=== PATIENT | female | born 1995 | race Caucasian/White ===

== ENCOUNTER 2016-08-26 11:40 | Emergency (ER) | payer SELFPAY ==
[~2016-08-26] VITALS: Ht 160 cm; Wt 98.8 kg
[~2016-08-26 11:40] MED LIST: AMOX-351 PO; IBUP-1547 PO; NO DAILY MEDICATIONS
[2016-08-26 11:43] VITALS: Ht 160 cm; Wt 98.8 kg
--- OUTSIDE RECORDS SUMMARY | 2016-08-26 11:47 | XMS REPORT | Continuity of Care Document ---
Author Author [facility] Organization [facility] Address Unknown Phone Unavailable Support Name Relationship Address Phone LEVONREN ABBY Sofia TOOL GRINDER Caregiver [address] [place] [address] Unavailable DOT RAI Next Of Kin [address] [place], [place] [id number] Insurance Providers Guarantor Taylor Irvin Address [address] [place] [address] [address] [place] [address] Email DENIED/NO TO PT PORTAL Payer [facility] [employer] Policy Number [id number] Subscriber's Name Taylor Irvin Relationship 18 Self Group Number [id number] Effective Date 16 Expiration Date 16 Chief Complaint and Reason for Visit Chief Complaint Ear Pain/Injury Reason for Visit [id number] Problems Active Problems Medical Problem Onset Date Status Allergic reaction caused by a drug Unknown Acute Peritonsillar cellulitis Unknown Acute Sensation of foreign body Unknown Acute Past Problems Medical Problem Onset Date Acute maxillary sinusitis Unknown Allergic rhinitis Unknown Otitis media, left Unknown Medications Current Home Medications Medication Dose Units Route Directions Days Qty Instructions Start Date Amoxicillin/Potassium Clav (Augmentin 875-125 Tablet) 1 Each Tablet 1 Tab Oral Twice A Day 10 Days 20 Tablet TAKE WITH MEALS Supervising physician Dr. Rc Robledo [employer] [facility] [phone] [phone] 06/16/16 Ibuprofen 800 Mg Tablet 800 Mg Oral Every 8 Hours Prn for Pain 7 Days [address] Rc Robledo [facility] [address] [phone] 06/16/16 No Daily Medications 06/16/16 Past Home Medications Medication Directions Ordered Status Fluticasone Propionate (Flovent Hfa) 12 Gm Aer.w.adap, 12 Gm Inhalation As Needed 09/12/12 Discontinued Folic Acid 0.4 Mg Tablet, 0.4 Mg Oral 09/12/12 Discontinued Montelukast Sodium (Singulair) 10 Mg Tablet, 10 Mg Oral Daily 09/12/12 Discontinued None , 01/30/10 Discontinued Vits W-Ca,Fe,Fa(<1MG) ( Vitamins) 1 Tab Tablet, 1 Tab Oral Daily 09/12/12 Discontinued Social History Social History Problem Response Recorded Date/Time Onset Date Status Hx Substance Use No 03/29/2016 12:37pm Not Applicable Not Applicable Hx Alcohol Use Y RARELY 01/02/2015 1:50pm Not Applicable Not Applicable Tobacco Usage none 11/30/2014 11:32pm Not Applicable Not Applicable Hospital Discharge Instructions No hospital discharge instructions. Plan of Care Discharge Date 06/16/16 7:17pm Disposition 01 DISCHARGED HOME, SELF-CARE Condition at Discharge Stable Instructions/Education Provided Earache (ED) Serous Otitis Media (ED) Prescriptions See Medication Section Additional Instructions/Education Take augmentin as directed. Use Ibuprofen 800 mg every 8 hours as needed for pain. Dilute salt water gargles as needed ( 1/4 tsp of salt in 1 c. water) Follow with PCP in next 2 weeks. Functional Status No functional status results. Allergies, Adverse Reactions, Alerts Allergen Type Severity Reaction Status Last Updated Dexamethasone Allergy Intermediate Active 06/16/16 Cefuroxime Adverse Reaction Unknown Active 06/16/16 Immunizations Query Response on File Recorded Date/Time Hx Influenza Vaccination Y fall 201101/02/15 1:50pm Hx Tetanus, Diptheria, Pertussis Yes 01/02/15 1:50pm Hx Influenza Vaccination Y fall 201101/02/15 1:50pm Hx Tetanus, Diptheria, Pertussis Yes 01/02/15 1:50pm DTaP Vaccine History UNSURE 06/16/16 6:26pm Influenza Vaccine Hx 01/21/2016 06/16/16 6:26pm Tetanus Diptheria Vaccine History UNSURE 06/16/16 6:26pm Tdap Vaccine Hx 02/24/2016 03/29/16 12:37pm Vital Signs Acute Vital Signs Vital Response Date/Time Temperature (Fahrenheit) 98.2 deg F (96.8 - 99.1) 06/16/2016 6:35pm Temperature (Calculated Celsius) 36.81242 degrees C (36.0 - 37.3) 06/16/2016 6:35pm Pulse Rate (adult) 79 bpm (60 - 100) 06/16/2016 6:35pm Respiratory Rate 16 breaths/min (10 - 20) 06/16/2016 6:35pm O2 Sat by Pulse Oximetry 100 % (90 - 100) 06/16/2016 6:35pm Oxygen Delivery Method Room Air 03/31/2016 2:17pm Blood Pressure 115/77 mm Hg 06/16/2016 6:35pm Blood Pressure Source Automatic Cuff 03/31/2016 2:17pm Height (Feet) 5 feet 05/23/2016 11:45am Height (Inches) 64.00 inches 06/16/2016 6:35pm Weight (Kilograms) 97.000 kg 06/16/2016 6:35pm Body Mass Index (BMI) 36.0 06/16/2016 6:35pm Results Laboratory Results Test Name Result Units Flags Reference Collection Date/Time Result Date/ Time Comments White Blood Count 18.2 T/MM3 D H 4.5-11.0 03/30/2016 3:57am 03/30/2016 5: 45am Red Blood Count 5.01 M/MM3 4.00-5.20 03/30/2016 3:57am 03/30/2016 5: 45am Hemoglobin 15.0 GM/DL 12-16 03/30/2016 3:57am 03/30/2016 5:45am Hematocrit 43.9 % 36-46 03/30/2016 3:57am 03/30/2016 5:45am Mean Corpuscular Volume 87.6 UM3 80-100 03/30/2016 3:57am 03/30/2016 5: 45am Mean Corpuscular Hemoglobin 29.9 UUG 26-34 03/30/2016 3:57am 2015 5:45am Mean Corpuscular Hemoglobin Concent 34.2 GM/DL 31-37 03/30/2016 3:57am 03/30/2016 5:45am RDW Standard Deviation 40.8 FL 36.9-50.2 03/30/2016 3:57am 03/30/2016 5 :45am Platelet Count 244 T/MM3 130-400 03/30/2016 3:57am 03/30/2016 5:45am Mean Platelet Volume 12.1 UM3 9.4-12.4 03/30/2016 3:57am 03/30/2016 5: 45am Icterus Index < 2 0-7 03/29/2016 12:10pm 03/29/2016 12:25pm Chemistry Specimen Hemolysis < 15 0-25 03/29/2016 12:10pm 03/29/2016 12:25pm 0-25: Specimen Exhibited No Hemolysis. Turbidity < 20 0-20 03/29/2016 12:10pm 03/29/2016 12:25pm Total Bilirubin 0.30 MG/DL 0.20-1.30 03/29/2016 12:10pm 03/29/2016 12: 25pm Unconjugated Bilirubin 0.10 MG/DL 0.00-1.10 03/29/2016 12:10pm 2015 12:25pm Conjugated Bilirubin 0.00 MG/DL 0.00-0.30 03/29/2016 12:10pm 2015 12:25pm Alkaline Phosphatase 138 U/L H 38-126 03/29/2016 12:10pm 03/29/2016 12: 25pm Total Protein 7.2 G/DL 6.3-8.2 03/29/2016 12:10pm 03/29/2016 12:25pm Albumin 3.6 G/DL 3.5-5.0 03/29/2016 12:10pm 03/29/2016 12:25pm Globulin 3.6 G/DL 2.4-3.6 03/29/2016 12:10pm 03/29/2016 12:25pm Albumin/Globulin Ratio 1.0 RATIO L 1.1-2.2 03/29/2016 12:10pm 2015 12:25pm Aspartate Amino Transf (AST/SGOT) 19 U/L 14-36 03/29/2016 12:10pm 03/29 12:25pm Alanine Aminotransferase (ALT/SGPT) 31 U/L 9-52 03/29/2016 12:10pm 12:25pm Urine Color YELLOW YELLOW 03/31/2016 6:29am 03/31/2016 6:44am Urine Turbidity SL CLOUDY CLEAR 03/31/2016 6:29am 03/31/2016 6:44am Urine Specific [place] 1.020 1.015-1.025 03/31/2016 6:29am 2015 6:44am Urine pH 6.0 5.0-8.0 03/31/2016 6:29am 03/31/2016 6:44am Urine Leukocyte Esterase NEGATIVE NEGATIVE 03/31/2016 6:29am 2015 6:44am Urine Nitrite NEGATIVE NEGATIVE 03/31/2016 6:29am 03/31/2016 6:44am Urine Protein NEGATIVE NEGATIVE 03/31/2016 6:29am 03/31/2016 6:44am Urine Glucose (UA) NEGATIVE NEGATIVE 03/31/2016 6:29am 03/31/2016 6: 44am Urine Ketones NEGATIVE NEGATIVE 03/31/2016 6:29am 03/31/2016 6:44am Urine Urobilinogen 0.2 EU/DL NORMAL 03/31/2016 6:29am 03/31/2016 6: 44am Urine Bilirubin NEGATIVE NEGATIVE 03/31/2016 6:29am 03/31/2016 6: 44am Urine Blood 3+ A NEGATIVE 03/31/2016 6:29am 03/31/2016 6:44am Urine WBC 0-1 /HPF 0-5 03/31/2016 6:29am 03/31/2016 6:54am Urine RBC 30-50 /HPF H 0-3 03/31/2016 6:29am 03/31/2016 6:54am Urine Squamous Epithelial Cells 0-5 03/31/2016 6:29am 03/31/2016 6: 54am Urine Bacteria TRACE H NEGATIVE 03/31/2016 6:29am 03/31/2016 6:54am Urine Culture Indicated CULT NOT INDICATED 03/31/2016 6:29am 2015 6:54am Cholic Acid 0.40 nmol/mL <=5.00 03/29/2016 12:10pm 04/01/2016 2:24pm Deoxycholic Acid 0.50 nmol/mL <=6.00 03/29/2016 12:10pm 04/01/2016 2: 24pm Chenodeoxycholic Acid 0.76 nmol/mL <=6.00 03/29/2016 12:10pm 2015 2:24pm Total Bile Acids 1.79 nmol/mL <=19.00 03/29/2016 12:10pm 04/01/2016 2: 24pm ADDITIONAL INFORMATION This test was developed and its performance characteristics determined by [facility] in a manner consistent with CLIA requirements. This test has not been cleared or approved by the U.S. Food and Drug Administration. Test Performed by: [facility] - [address] [address] Field Services Director: Jose Hardy II, M.D., Ph.D. Bile Acids, Fractionated performed at [facility], [address] [place] [address] [employer] Antony Somers MD Ursodeoxycholic Acid (UDCA) 0.13 nmol/mL <=2.00 03/29/2016 12:10pm 2:24pm Group A Streptococcus Screen NEGATIVE NEGATIVE 05/23/2016 12:03pm 12:14pm Procedures Procedure Status Date Provider(s) Obstetrical care Completed 03/29/16 EMMA MCKEON MD DELIVERY OF PRODUCTS OF CONCEPTION, EXTERNAL APPROACH Completed 03/29/16 LINDA,EMMA Drew MD INTRODUCTION OF OTH HORMONE INTO PERIPH VEIN, PERC APPROACH Completed EMMA MCKEON MD DRAINAGE OF AMNIOTIC FL, THERAP FROM POC, VIA OPENING Completed 03/29/16 EMMA MCKEON MD Encounters Encounter Location Arrival/Admit Date Discharge/Depart Date Attending Provider Departed Emergency Room [facility] 06/16/16 6:15pm 06/16/16 7: 17pm ABBY VÁZQUEZ APRN Registered Clinic [facility] 06/16/16 11:24am KEDAR FLORES APRN Departed Emergency Room [facility] 05/23/16 11:02am 05/23/16 12: 15pm TAYO KNIGHT APRN Discharged Inpatient [facility] 03/29/16 11:39am 03/31/16 6:39pm EMILEE YADAV MD Recent Diagnosis
--- NOTE | 2016-08-26 11:48 | NUR ---
MONITOR PLACED, SR RATE 80'S.
[2016-08-26] MEDS ORDERED: NO ROUTINE MEDS (11:55)
--- NOTE | 2016-08-26 12:22 | NUR ---
FLUE TILE PRESS OPERATOR N. NOLD FLUE TILE PRESS OPERATOR AT BEDSIDE.
--- NOTE | 2016-08-26 12:29 | ERPDOC ---
Departure Disposition Decision Date: August 26, 2016 Disposition Decision Time: 13:00 (KADIEJEREMÍASKAREN Langston APRN) Disposition: 01 DISCHARGED HOME, SELF-CARE Impression Impression (KADIEJEREMÍASKAREN Langston APRN) Impression: Primary Impression: Asthma Asthma severity: mild intermittent Asthma complication type: uncomplicated Qualified Codes: J45.20 - Mild intermittent asthma, uncomplicated Severity: Moderate (KAREN GONSALEZ APRN) Condition: Stable Seen By: Mid-level only (KAREN GONSALEZ APRN) Patient Instructions: Asthma (ED) Problems/Meds/Labs Reviewed?: Yes Medications reviewed and manag: Yes (KAREN GONSALEZ APRN) Additional Instructions: Use the Albuterol inhaler as needed for shortness of breath or chest pain. I do want you to establish with a primary care provider for further evaluation and management of your asthma. If you should have any further issues/concerns then return to Er. Follow up care ordered?: Yes Mental Status: Alert (KAREN GONSALEZ APRN) Scripts Albuterol Sulfate (Proair HFA 90 mcg/actuation) 8.5 Gm Hfa.aer.ad 2 PUFF INH Q4H Y for WHEEZING, #1 INHALER 0 Refills Prov: KADIEJEREMÍASKAREN Langston APRN 08/26/16 HPI - Chest Pain General Chief Complaint: Chest Pain Stated Complaint: CHEST PAIN, SIDE PAIN Time Seen by Provider: 12:05 Source: patient Exam Limitations: no limitations (KAREN GONSALEZ APRN) Time Seen by Provider: 12:05 (ANNETTE SNOW DO) HPI - Chest Pain Initial Comments She has had some pain in the epigastric region/lower chest for the last several months. Nothing seems to make it better or make it worse. She does not have a PCP that she sees so she has not had this evaluated so far. Denies any chest tightness or pressure currently. She has not had any nausea/vomiting or diarrhea at all. Denies any fever or chills. Has not taken any medications for this. She does have a history of asthma and wonders if this is related. She does not have an inhaler at home. Occurred At: home Onset/Timing: Gradual Duration: other (Off and on over the last couple of months) Activities at Onset/Context: none Location: epigastric Quality: sharp Associated Symptoms: abdominal pain (upper epigastric pain), shortness of breath, DENIES: back pain, diaphoresis, dizziness, edema, fast HR, fatigue, fever/chills, headache, heartburn, irregular HR, nausea/vomiting, rash, slow HR , swelling/lump in chest, syncope, weakness Chest Pain Radiation: no radiation Nitro Today/Relief: no nitro taken today Aspirin Treatment Today: unknown Prior Chest Pain/Cardiac Ismael: no prior chest pain, no prior cardiac workup (NOLD,KAREN N CLIENT EVALUATOR) Allergies: Coded Allergies: dexamethasone (Verified Allergy, Intermediate, 08/26/16) cefuroxime (Verified Adverse Reaction, Unknown, 08/26/16) unkown reaction, happend when she was 8 months old Past History Past Medical History Respiratory: asthma (NOLD,KAREN N CLIENT EVALUATOR) Surgical History Denies Surgeries (NOLD,KAREN N CLIENT EVALUATOR) Family History Family PMH: FOUND: [place], a-fib, other (NOLD,KAREN N CLIENT EVALUATOR) Vaccines Hx Influenza Vaccination: Yes (fall 2011) Hx Tetanus, Diptheria, Pertuss: Yes (NOLD,KAREN N CLIENT EVALUATOR) Social History Smoking Status: Never smoker Does patient use chewing tobac: No Second Hand Exposure: No Substance Use Type: does not use Alcohol Intake: none (NOLD,KAREN N CLIENT EVALUATOR) Review of Systems Constitutional Constitutional: DENIES: chills, dizziness, fatigue, fever, weakness (NOLD, KAREN N CLIENT EVALUATOR) Cardiovascular Cardiac: chest pain, DENIES: dyspnea on exertion, orthopnea Rhythm/Rate: DENIES: irregular beat, palpitations Vascular: DENIES: pedal edema, unilateral swelling (NOLD,KAREN N CLIENT EVALUATOR) Pulmonary Respiratory: dyspnea, DENIES: cough, other (wheezing), sputum, tachypnea (NOLD, KAREN N CLIENT EVALUATOR) GI Upper Abdomen: DENIES: nausea, pain, vomiting Lower Abdomen: DENIES: constipation, diarrhea, pain (NOLD,KAREN N CLIENT EVALUATOR) Integumentary Skin: DENIES: rash (NOLD,KAREN N CLIENT EVALUATOR) Neurological General: DENIES: headache, numbness, tingling, weakness (NOLD,KAREN N CLIENT EVALUATOR) Physical Exam General General Nourishment: well nourished, well developed, appears stated age, no acute distress, adult General Body Habitus: well groomed (KAREN GONSALEZ APRN) Vitals and Pain First Documented Vital Signs Date Time Temp Pulse Resp B/P Pulse Ox O2 Delivery O2 Flow Rate FiO2 08/26/16 11:43 98.1 82 16 125/71 97 Room Air (ANNETTE SNOW DO) Vitals and Pain Weight: Kilograms: 98.800 Height (feet): 5 Height (inches): 3.00 Triage Pain Scale: (KAREN GONSALEZ APRN) RN VS reviewed by Provider: Yes (KAREN GONSALEZ APRN) Normal Exams: Neck: Full range of motion, without adenopathy, JVD, bruits or thyromegaly CV: Regular rate and rhythm, without murmur or gallop, Pulses 2+ all extremities, capillary refill, <2 seconds all ext., no pedal edema noted Abdomen: Bowel sounds positive, soft, non-tender, non-distended, no hepatosplenomegaly, masses or bruits noted Lymphatic: No lymphadenopathy, or lymphedema noted Integumentary: No rashes, hives, or bruising noted Neurologic: Patient is alert, and oriented Psychiatric: Patient exhibits, appropriate attention, emotion and affect (KAREN GONSALEZ APRN) ENMT (brief) ENMT Brief: FOUND: TM clear, TM good light reflex, ear canals clear, mucosa moist, normal dentition, normal tonsils, NOT FOUND: lesions, nasal erythema, nasal exudate, nasal swelling, petechiae, pharnyx erythema, tonsillar deviation (KAREN GONSALEZ APRN) Respiratory (brief) Respiratory: FOUND: other (Diminished throughout) (KAREN GONSALEZ APRN) Differential Diagnoses Considering: Anxiety/Panic, Costochondritis, Esophageal Spasm, GERD, Other ( asthma exacerbation) (KAREN GONSALEZ APRN) Progress Results/Orders Orders Procedure Category Date Status Time EKG EKG 08/26/16 Taken 12:25 Albuterol Sulfate PHA 08/26/16 Complete (Proventil 2.5 Mg/3 Ml 12:30 (ANNETTE SNOW DO) Medications Current ED Medications Albuterol Sulfate (Proventil 2.5 Mg/3 ml) 2.5 mg O ONCE AEROSOL Last administered on 08/26/16t 12:30; Start 08/26/16 at 12:30; Stop 08/26/16 at 12:31 ; Status DC (ANNETTE SNOW DO) Progress Progress She does feel better after the Albuterol treatment. She does have increased air movement in the bilateral upper lobes, still slightly diminished in bilateral lower lobes. Will go ahead and let her go home with Rx for Albuterol inhaler. Given that her vitals are normal and she does not have any other risk factors for cardiac or possible PE indication for her pain will forgo any other formal testing. Her pain has been off and on for 2 months. I did advise that she establish with a primary care provider or [facility] for further management of her asthma. (KAREN GONSALEZ APRN) EKG EKG : Rate: 60-100 Rhythm: sinus [place]: normal QRS: normal Intervals: normal ST/T: normal Interpreted by: signing physician (KAREN GONSALEZ APRN) KAREN GONSALEZ APRN August 26, 2016 12:29 ANNETTE SNOW DO August 26, 2016 15:55
[2016-08-26] MEDS ORDERED: ALBUTEROL INH.SOLN. 2.5mg/3ml (0.083%) Neb. AEROSOL ONE (12:30)
--- NOTE | 2016-08-26 12:32 | NUR ---
RT AT BEDSIDE FOR TX.
[2016-08-26] MEDS ORDERED: ALBU8.5H INH (13:02)
[2016-08-26 13:30] VITALS: BP 125/71; PULSE 82; RESP 18; TEMP 98.1; O2SAT 97
--- NOTE | 2016-08-26 13:30 | NUR ---
DISMISS PT AMBULATORY TO LOBBY AT THIS TIME. PT DENIES FURTHER QUESTIONS.
== END 2016-08-26 13:30 | disposition home or self-care (01) ==
LOC: ED 11:40
DX: J45.20 Mild intermittent asthma, uncomplicated (principal)
CPT/HCPCS: 93005; 94640

== ENCOUNTER 2017-10-12 05:32 | Inpatient (IN) ==
--- OUTSIDE RECORDS SUMMARY | 2017-10-12 05:38 | External Medical Summary | Continuity of Care Document ---
:1995 Author Organization [facility] Address [address] [place], [place] [id number] Phone Care Team Providers Name Role Phone Snehal Corbin MD Unavailable Unavailable Allergies, Adverse Reactions, Alerts Substance Reaction Severity Status cefuroxime Unknown Active Medications Medication Instructions Dosage Effective Dates Status Comments (start - stop) Rhophylac 1,500 - Active unit (300 mcg)/2 mL injection syringe Lancets, Super use by Intradermal Not Available - Active for OneTouch Thin route 4 times UltraMini every day Meter-- ICD 10: O24.410 Blood Glucose check by Not Available - Active for OneTouch Monitoring kit Misc.(Non-Drug; UltraMini Combo Route) route Meter-- ICD 10: once test blood O24.410 sugar QID, fasting and 2 hours after each meal Blood Glucose test 1 Drop by Not Available - Active for OneTouch Test strips Intradermal route UltraMini 4 times every day Meter-- ICD 10: fasting and O24.410 postprandial acyclovir 400 mg take 1 tablet by 400 MG - Active tablet ORAL route 3 times every day 19 take 1 tablet by Not Available - Active ok to exchange (with docusate) oral route every to brand 29 mg iron-1 day covered by XIX mg-25 mg tablet Singulair 10 mg take 1 tablet by 10 MG - Active tablet oral route every day in the evening Problems Condition Effective Dates (start - stop) Clinical Status Supervision of other high risk - pregnancies, third trimester Gestational diabetes mellitus in - , diet controlled 35 weeks gestation of - Chronic maxillary sinusitis - Other specified health status Encounter for suprvsn of normal - , third trimester 28 weeks gestation of - Chronic maxillary sinusitis - Chronic maxillary sinusitis - Obstruction of bile duct - Urinary tract infection, site not specified Vaginal Discharge or Lesion Encounter for routine checking of intrauterine contracep dev Encounter for test, result - negative Urinary tract infection, site not specified Anesthesia of skin Vaginal Discharge or Lesion Dry mouth, unspecified Oth noninflammatory disorders of vulva - and perineum Pap Smear Screening, Cervix - Encounter for suprvsn of normal - , first trimester 10 weeks gestation of - Supervision of other high risk - pregnancies, second trimester Placenta previa specified as w/o - hemor, second trimester 24 weeks gestation of - Supervision of other high risk - pregnancies, second trimester Placenta previa specified as w/o - hemor, second trimester 20 weeks gestation of - Supervision of other high risk - pregnancies, second trimester Placenta previa specified as w/o - hemor, second trimester 20 weeks gestation of - Supervision of other high risk - pregnancies, second trimester Matern care for oth or susp poor fetl - grth, 2nd tri, unsp Placenta previa specified as w/o - hemor, second trimester 17 weeks gestation of - Supervision of other high risk - pregnancies, third trimester Gestational diabetes mellitus in - , diet controlled 32 weeks gestation of - Supervision of other high risk - pregnancies, third trimester Gestational diabetes mellitus in - , diet controlled Maternal care for excess growth, - third trimester, unsp 38 weeks gestation of - Supervision of other high risk - pregnancies, third trimester Maternal care for excess growth, - third trimester, unsp 34 weeks gestation of - Gestational diabetes mellitus in - , diet controlled Placenta previa specified as w/o - hemorrhage, third trimester 28 weeks gestation of - Rash Rash Encntr screen for infections w sexl mode of transmiss Encounter for insertion of - intrauterine contraceptive device Follow-Up, Routine - Encounter for initial prescription of contraceptive pills Encounter for routine checking of intrauterine contracep dev Encounter for suprvsn of normal - , first trimester 13 weeks gestation of - Encounter for suprvsn of normal - , first trimester 13 weeks gestation of - Encounter for suprvsn of normal - , third trimester 35 weeks gestation of - Encntr for suprvsn of normal , unsp, unsp trimester Vulvar Lesion - Active Herpes Simplex Virus Active Active Procedures Procedure Date Ultrasnd preg uterus, flwup/repeat Results Test Name Date and Time Measure Units Reference Range Abnormal Flag Comments Unknown Advance Directives Directive Yes / No Effective Date File Name Unknown Encounters Encounter Practice Location Reason(s) Diagnoses Date Provider Care Team Description For Visit Members Dennis [place] Supervision of Danis-2 Kassandra In Womens other high risk 8- [facility]. [facility], pregnancies, 8 700 [address] third Medical 1522, trimesterGestati [facility], onal diabetes Miky Girard, mellitus in 120, , , diet [place] controlledMatern [place], tel: al care for [phone] [id number] excess , [place]. growth, third tel: trimester, [phone] [id number] weeks gestation of Dennis [place] Encounter for Danis-1 Kassandra In Womens suprvsn of 1-201 Julia. [facility] PA, normal 8 700 [address] , third Medical 1522, [email or web address] [facility], weeks gestation Miky Girard, of 120, , [place], tel: [phone] , [place]. tel: [phone] Dennis [place] Supervision of Danis-1 Kassandra In Womens Ultrasound other high risk 1-201 [facility]. [facility], pregnancies, 8 700 PO Box third Medical 1522, trimesterGestati [facility] [place], [facility] diabetes , Miky BYRNE, mellitus in 120, , , diet [place], [place], tel:+[phone] weeks gestation [phone] of , [place]. tel: [phone] Dennis [place] Supervision of August-3 Kassandra Referring In Womens other high risk 1-201 Julia. Provider: Health PA, pregnancies, 8 700 Julia PO Box third Medical Kassandra L, 1522, trimesterMaterna Center [address] [place] [address], l care for Dr, [facility] Dr BYRNE, excess 120, Miky 120, [id number], growth, third [place], [place], [place] trimester, [place], [id number]. tel: unsp34 weeks tel: gestation of , [place]. [id number] tel: [phone] Dennis [place] Supervision of August-1 Kassandra In Womens other high risk 5-201 Julia. [facility], pregnancies, 8 700 PO Box third Medical 1522, trimesterGestati [facility] [place], onms diabetes , Miky BYRNE, mellitus in 120, , , diet [place], [place] [email or web address] [place], tel:+3162 weeks gestation [phone] [address] of , [place]. tel: [phone] Dennis [place] Encounter for Apr-1 Kassandra Referring In Womens suprvsn of 9-201 Julia. Provider: Health [facility], normal 8 700 Julia PO Box , third Medical Kassandra L, 1522, [email or web address] [place] [address] [place], weeks gestation , [facility] Dr BYRNE, of 120, Miky 120, [id number], [place], [place], [place], [id number]. tel: tel: , [place]. [address] tel: [phone] Dennis [place] Gestational Apr-1 Kassandra In Womens Ultrasound diabetes 9-201 Julia. [facility] PA, mellitus in 8 700 PO Box , diet Medical 1522, controlledPlacen [facility] [place], ta prevMiky russo Dr, specified as w/o 120, [id number], hemorrhage, [place], [place] third [place], tel:+ [id number] [phone] [id number] weeks gestation , [place]. of tel: [phone] Dennis [place] Mar-2 Kassandra In Womens 3-201 Julia. [facility], 8 700 PO Box Medical 1522, [facility] [place], Miky Girard [place], 120, [id number], [place], [place], tel:+ [phone] , [place]. tel: [phone] Dennis [place] Supervision of Jun-2 Kassandra In Womens other high risk 2-201 Julia. [facility], pregnancies, 8 700 PO Box second Medical 1522, trimesterPlacent [facility] [place], a prevMiky russo Dr, specified as w/o 120, [id number], hemor second [place], [place] [email or web address] [place], tel:+[phone] weeks gestation [phone] of , [place]. tel: [phone] Dennis [place] Supervision of Feb-2 Kassandra In Womens other high risk 1-201 Julia. [facility], pregnancies, 8 700 PO Box second Medical 1522, trimesterPlacent [facility] [place], a prevMiky russo Dr, specified as w/o 120, [id number], hemor, second [place], tel:+3162 weeks gestation [phone] [address] of , [place]. tel: [phone] Dennis [place] Supervision of Feb-2 Kassandra In Womens Ultrasound other high risk 1-201 Julia. [facility], pregnancies, 8 700 PO Box second Medical 1522, trimesterPlacent [facility] [place], rony prevMiky russo Dr, specified as w/o 120, [id number], hemor, second [place], [place] [id number] [place], tel:+[phone] weeks gestation [phone] of , [place]. tel: [phone] Dennis [place] Supervision of Deshawn-3 Kassandra In Womens other high risk 1-201 Julia. [facility], pregnancies, 8 700 PO Box second Medical 1522, trimesterMatern [facility], care for oth or Miky Girard, susp poor fetl 120, [id number], grth, 2nd tri, [place], unspPlacenta [place], tel:+ previa specified as w/o hemor, , [place]. second tel: [id number] [phone] weeks gestation of [facility] Encounter for Deshawn-0 Kassandra In Womens suprvsn of 4-201 Julia. [facility] PA, normal 8 700 PO Box , first Medical 1522, [email or web address] [facility], weeks gestation Miky Girard, of 120, , [place], tel:[phone] , [place]. tel:[phone] Dennis [place] Encounter for Deshawn-0 Kassandra In Womens Ultrasound suprvsn of 4-201 Julia. [facility], normal 8 700 PO Box , first Medical 1522, [id number] [facility], weeks gestation Miky Girard, of 120, , [place], [place], tel:901 , [place]. tel: [phone] eDnnis [place] Dec-1 Kassandra In Womens 8-201 Julia. [facility] PA, 7 700 PO Box Medical 1522, [facility], Miky Girard, 120, , [place], [place], tel:[phone] , [place]. tel: [phone] Dennis [place] Oth Dec-1 Kassandra In Womens noninflammatory 3-201 Julia. [facility], disorders of 7 700 PO Box vulva and Medical 1522, perineumPap [facility], Smear Screening, Miky Girard, CervixEncounter 120, , for suprvsn of [place], normal [place], tel:+ , first [phone] [id number] , [place]. weeks gestation tel: of [phone] Dennis [place] Encntr for Nov-2 Mcgraw Referring In Womens suprvsn of 2-201 Anne. Provider: [facility], normal 7 700 Giselle PO Box , unsp, Medical Alicea J, 1522, unsp trimester Center [address] [place] [address] Dr Manda, [facility] [place], 120, Miky 120, [id number], [place], [place], [place], [id number]. tel:[phone] tel:[phone] , [place]. [address] tel: [phone] Dennis [place] Other specified Nov-2 Alicea In Womens health status 0-201 Giselle. Health CH[facility]EDU, 7 700 PO Box Medical 1522, [address] Dr Manda, [facility] [place], 120, [id number], [place], [place], tel:[phone] , [place]. tel: [phone] Dennis [place] Encounter for Sep-2 Sobbing In Womens initial 8- Higinio. Health [facility]U, prescription of 7 700 PO Box contraceptive Medical 1522, pillsEncounter [facility], for routine Drive, [place], checking of [id number], intrauterine 120, [place] contracep [place], [place]: [place], [address], [place]. tel: [phone] Dennis [place] Urinary tract Mar-2 Alicea In Womens infection, site 1-201 Giselle. Health PA, not 7 700 PO Box specifiedAnesthe Medical 1522, lam of skin [address] Dr Manda, [facility] [place], 120, [id number], [place], [place], tel:[phone] , [place]. tel: [phone] Dennis [place] Urinary tract Mar-0 Alicea In Womens infection, site 9-201 Giselle. Health PA, not 7 700 PO Box specifiedVaginal Medical 1522, Discharge or [facility] [place], LesionEncsantiago Girard, [facility], for routine 120, , checking of [place], intrauterine [place], tel: contracep [phone] devEncounter for , [place]. test, tel: result negative [phone] Dennis [place] Encntr screen Deshawn-2 Kassandra In Womens for infections w 7-201 Julia. [facility] PA, sexl mode of 7 700 PO Box transmissEncount Medical 1522, er for insertion [facility], of intrauterine , [facility] [place], contraceptive 120, , [facility]Post[facility] Follow-Up, [place], tel:+ Routine [phone] , [place]. tel: [phone] [facility] Obstruction of Dec-2 Kassandra In Womens bile duct 0-201 Julia. Health CHINEDU, 6 700 [facility] 1522, [address] Manda, [facility] [place], 120, [id number], [place], [place], tel:[phone] , [place]. tel: [phone] [facility] Chronic Dec-0 Kassandra In Womens maxillary 2-201 Julia. Health CHINEDU, sinusitis 6 700 [facility] 1522, [address] Manda, Miky BYRNE, 120, [id number], [place], [place], tel:[phone] , [place]. tel: [phone] [facility] Chronic Nov-2 Kassandra In Womens maxillary 2-201 Julia. Health [facility]U, sinusitis 6 700 [facility] 1522, [address] Manda, [facility] [place], 120, [id number], [place], [place], tel:[phone] , [place]. tel: [phone] [facility] Chronic Nov-1 Kassandra Referring In Womens maxillary 6-201 Julia. Provider: Dede CHE, sinusitis 6 700 Julia [facility] Medical Kassandra L, 1522, [place] [address], [facility] [place], 120, Miky 120, [id number], [place], [place], [place], [id number]. tel:[phone] tel: , [place]. [address] tel: [phone] [facility] Oct-1 Kassandra Referring In Womens 3-201 Julia. Provider: Dede CHE, 6 700 Julia PO Box Medical Kassandra L, 1522, [place] [address], [facility] [place], 120, Miky 120, , [place], [place], [place], [id number]. tel:[phone] tel: , [place]. 723862 tel: [phone] [facility] Rash Sep-1 Kassandra In Womens 9-201 Julia. Health CHINEDU, 6 700 PO Box Medical 1522, [address] Manda, [facility] [place], 120, [id number], [place], [place], tel:[phone] , [place]. tel: [phone] [facility] Rash Aug-1 Kassandra In Womens 8-201 Julia. [facility] PA, 6 700 PO Box Medical 1522, [address] Manda, [facility] [place], 120, [id number], [place], [place], tel:[phone] , [place]. tel: [phone] [facility] Vaginal Dec-2 Alicea Referring In Womens Discharge or 3-201 Giselle. Provider: Dede CHE, Alayna johnson, 5 700 Brigida PO Box unspecified Medical Ceci S, 1522, [address] Manda, [facility] [place], 120, Miky 120, [id number], [place], [place], [facility], [id number]. tel:[phone] tel: , [place]. [address] tel: [phone] [facility] Oct-0 Ceci Referring In Womens 9-201 Brigida. Provider: Dede CHE, 2 700 Pediatrics [facility], 1522, [address] Manda, [facility] [place], 120, [id number], [facility], [place], [place], [place], tel: [phone] [address]. [phone] , [place]. tel: tel: [phone] Family History Family Member Diagnosis Age At Onset No Family history of Family history not known. Patient is adopted. Mother Cardiovascular Disease Immunizations Vaccine Date Status Comments Tdap completed Source: New Immunization Record Rhophylac completed Source: New Immunization Record Influenza, injectable, completed Source: New Immunization Record quadrivalent, preservative free, 3 yrs or older Tdap completed Source: New Immunization Record Rhophylac completed Source: New Immunization Record Influenza, injectable, completed Source: New Immunization Record quadrivalent, preservative free, 3 yrs or older Payers Payer name Insurance type Covered alliance party ID Authorization(s) [employer] [place] - Medicaid MC [id number] [employer] Out Of [place] BL [id number] [employer] [place] [employer] - Medicaid MC [id number] [employer] [place] Medicaid MC [id number] [employer] [place] Medicaid MC [id number] [employer] [place] - Medicaid MC [id number] [employer] [place] [employer] - Medicaid MC [id number] [employer] [place] [employer] - Medicaid MC [id number] Social History Type Description Quantity Date Captured Unknown Vital Signs Date / Height Weight BMI Pulse Blood Temperature Respiratory Body Head BMI Time: Rate Pressure Rate Surface Circumference percentile Area Unknown Chief Complaint And Reason For Visit Unknown Chief Complaint And Reason For Visit Reason For Referral Reason For Referral Unknown Plan Of Care Date Type Action Status Goal Lifestyle education regarding completed diet Goal Lifestyle education regarding completed diet Goal Lifestyle education regarding completed diet Referral Ordered: ordered Mian Smith MD -Otolaryngology (related to Chronic maxillary sinusitis) Referral Referred To: ordered Mian Smith MD Ordered: Referrals: Otolaryngology. Mian Smith MD. Location: [place]. Consult Referral Ordered: ordered German Maurer -Dermatology (related to Rash) Referral Referred To: ordered German Maurer [address] [place], [place] Ordered: Referrals: Dermatology. German Maurer. Evaluate and treat Appointment Taylor Melo - [facility] [place] Primary C/S BOOKED Appointment Taylor Melo BOOKED Future Order: Radiology Order Ultrasound OB Follow-up ([id number]) Ordered Future Order: Lab Order Pap Smear With HPV Reflex If Ordered ASCUS ([id number]), Collected on: Future Order: Radiology Order Complete OB Ultrasound > 14 Ordered Weeks ([id number]) Future Order: Radiology Order Ultrasound OB Follow-up ([id number]) Ordered Future Order: Radiology Order Nuchal Translucency ([id number]) Ordered Date Type Problem Goal Intervention Status Start Date Unknown. History Of Present Illness Encounter Date Complaint History Of Present Illness This patient has no known history of present illness Functional Status Encounter Date Functional Assessment Cognitive Assessment Unknown Medications Administered Medication Instructions Dosage Effective Dates (start - stop) Status Comments Drug Treatment Unknown Instructions Date Instruction Additional Information HIV and other routine tests risk factors identified by history anticipated course of care nutrition and weight gain counseling, special diet toxoplasmosis precautions (cats / raw meat) sexual activity exercise indications for ultrasound influenza vaccine environmental / work hazards travel use of any medications (including supplements, vitamins, herbs, OTC drugs) seat belt use childbirth classes / hospital facilities hospital registration genetic testing Giving encouragement to exercise Related to Body mass index 37.0-37.9 Lifestyle education regarding diet Related to Body mass index 37.0-37.9 Giving encouragement to exercise Related to Body mass index 40.0-44.9 Lifestyle education regarding diet Related to Body mass index 40.0-44.9 Giving encouragement to exercise Related to Body mass index 40.0-44.9 Lifestyle education regarding diet Related to Body mass index 40.0-44.9 Giving encouragement to exercise Related to Body mass index 40.0-44.9 signs and symptoms of -induced hypertension
--- OUTSIDE RECORDS SUMMARY | 2017-10-12 05:38 | External Medical Summary | Continuity of Care Document ---
:1995 Author Organization [facility] Address [address] [place], [place] [id number] Phone Care Team Providers Name Role Phone Snehal Corbin MD Unavailable Unavailable Allergies, Adverse Reactions, Alerts Substance Reaction Severity Status cefuroxime Unknown Active Medications Medication Instructions Dosage Effective Dates Status Comments (start - stop) Rhophylac 1,500 - Active unit (300 mcg)/2 mL injection syringe butalbital-aceta take 1 tablet by Not Available - Active minophen-caffein oral route every e 50 mg-325 4 hours as needed mg-40 mg tablet not to exceed 6 tablets per 24hrs Lancets, Super use by Intradermal Not Available [...] tablet ORAL route 3 times every day Lexapro 10 mg take 1 tablet by 10 MG - Active tablet oral route every day 19 take 1 tablet by Not Available - Active ok to exchange (with docusate) oral route every to brand 29 mg iron-1 day covered by XIX mg-25 mg tablet Singulair 10 mg take 1 tablet by 10 MG - Active tablet oral route every day in the evening Problems Condition Effective Dates (start - stop) Clinical Status Encounter for suprvsn of normal - , third trimester 28 weeks gestation of - Chronic maxillary sinusitis - Other specified health status Oth noninflammatory disorders of vulva - and perineum Pap Smear Screening, Cervix - Encounter for suprvsn of normal - , first trimester 10 weeks gestation of - Chronic maxillary sinusitis - Chronic maxillary sinusitis - Obstruction of bile duct - Urinary tract infection, site not specified Vaginal Discharge or Lesion Encounter for routine checking of intrauterine contracep dev Encounter for test, result - negative Urinary tract infection, site not specified Anesthesia of skin Vaginal Discharge or Lesion Dry mouth, unspecified Supervision of other high risk - pregnancies, [...] second trimester 17 weeks gestation of - Gestational diabetes mellitus [...] first trimester 13 weeks gestation of - Encntr for suprvsn of normal , unsp, unsp trimester Vulvar Lesion - Active Herpes Simplex Virus Active Active Procedures Procedure Date OB Visit No Charge - SCHEDULE PLANNING MANAGER Injection Administration Rhophylac 100 Units Results Test Name Date and Time Measure Units Reference Range Abnormal Flag Comments Panel Description: Blood group antibody screen [Presence] in Serum or Plasma Antibody Screen 16:21:00 Negative Negative Advance Directives Directive Yes / No Effective Date File Name Unknown Encounters Encounter Practice Location Reason(s) Diagnoses Date Provider Care Team Description For Visit Members Dennis [place] Encounter for Jul- Kasasndra Referring In Womens suprvsn of Julia. Provider: Dede CHE, normal 8 700 Julia [address] , third Medical Kassandra L, 1522, [email or web address] [place] [address], weeks gestation , [facility][1] [place], of 120, Miky 120, [id number], Andrew [place], [place], [place], [id number]. tel:[phone] tel:[phone] , [place]. [address] tel: [phone] Dennis [place] Gestational Apr-1 Kassandra In Womens Ultrasound diabetes Julia. Health CH[facility]U, mellitus in 8 700 PO Box , diet Medical 1522, controlledPlacen [facility] Cent[facility] pinon previa Miky Girard, specified as w/o 120, [id number], hemorrhage, Andrew, [facility] [place], tel: [phone] weeks gestation , [place]. of tel: [phone] Dennis [place] Mar-2 Kassandra In Womens 5-201 Julia. Dede CHE, 8 700 PO Box Medical 1522, [address] [place], 120, [id number], Andrew, [facility], tel:[phone] , [place]. tel: [phone] Dennis [place] Mar-2 Kassandra In Womens 3-201 Julia. Health PA, 8 700 PO Box Medical 1522, [facility], Miky Girard, 120, [id number], [place], tel: [phone] , [place]. tel: [phone] Dennis [place] Supervision of Mar-2 Kassandra In Womens other high risk 2-201 Julia. Health PA, pregnancies, 8 700 PO Box second Medical 1522, trimesterPlacent [facility], a prevMiky russo Dr, specified as w/o 120, [id number], hemor, second Andrew, [place] [id number] [place], tel:+316 weeks gestation [phone] of , [place]. tel: [phone] Dennis [place] Supervision of Feb-2 Kassandra In Womens other high risk 1-201 Julia. Health PA, pregnancies, 8 700 PO Box second Medical 1522, trimesterPlacent [facility], a previa Miky Girard, specified as w/o 120, [id number], hemor, second [place], [place] [id number] [place], tel:+ weeks gestation [phone] of , [place]. tel: [phone] Dennis [place] Supervision of Feb-2 Kassandra In Womens Ultrasound other high risk 1-201 Julia. Health PA, pregnancies, 8 700 PO Box second Medical 1522, trimesterPlacent [facility], a prevMiky russo Dr, specified as w/o 120, [id number], hemor, second Andrew, [place] [email or web address] [place], tel:[phone] weeks gestation [phone] of , [place]. tel: [phone] Dennis [place] Supervision of Deshawn-3 Kassandra In Womens other high risk 1-201 Julia. Health PA, pregnancies, 8 700 PO Box second Medical 1522, trimesterMatern [facility], care for oth or Miky Girard, susp poor fetl 120, [id number], grth, 2nd tri, [place], [place] unspPlacenta [place], tel:+ previa specified [phone] as w/o hemor, , [place]. second tel: [phone] weeks gestation of Associates Andrew Encounter for Deshawn-0 Kassandra In Womens suprvsn of 4-201 Julia. Health CH[facility], normal 8 700 PO Box , first Medical 1522, [email or web address] [facility], weeks gestation Miky Girard, of 120, , [place], [place], tel:[phone] , [place]. tel: [phone] Associates [facility] Encounter for Deshawn-0 Kassandra In Womens Ultrasound suprvsn of 4-201 Julia. Health CH[facility]U, normal 8 700 PO Box , first Medical 1522, [email or web address] [facility], weeks gestation Miky Girard, of 120, , [place], [place], tel:[phone] , [place]. tel: [phone] Dennis [place] Dec-1 Kassandra In Womens 8-201 Julia. Health CH[facility], 7 700 PO Box Medical 1522, [facility], Miky Girard, 120, , [place], [place], tel:[phone] , [place]. tel: [phone] Dennis [place] Oth Dec-1 Kassandra In Womens noninflammatory 3-201 Julia. Health [facility], disorders of 7 700 PO Box vulva and Medical 1522, perineumPap [facility], Smear Screening, Miky Girard, CervixEncounter 120, , for suprvsn of [place], [place] normal [place], tel:+ , first [phone] [email or web address] , [place]. weeks gestation tel: of [phone] [facility] Encntr for Nov- Mcgraw Referring In Womens suprvsn of 2-201 Anne. Provider: Health CH[facility], normal 7 700 Giselle PO Box , unsp, Medical Nixon J, 1522, unsp trimester Center [address] Manda, [facility][1] Dr BYRNE, 120, Miky 120, , [place], [place], [place], . tel:[phone] tel: , [place]. 228264 tel: [phone] Dennis [place] Other specified Nov-2 Alicea In Womens health status 0-201 Giselle. Health PA, 7 700 PO Box Medical 1522, [address] Manda, Miky BYRNE, 120, [id number], [place], [place], tel:[phone] , [place]. tel: [phone] Dennis [place] Encounter for Sep-2 Sobbing In Womens initial 8-201 Higinio. Health PA, prescription of 7 700 PO Box contraceptive Medical 1522, pillsEncounter [facility], for routine Drive, [place], checking of Suite , intrauterine 120, [place] contracep dev [place], [place]: [place], [phone], [place]. tel: [phone] Dennis [place] Urinary tract Mar-2 Alicea In Womens infection, site 1-201 Giselle. Health PA, not 7 700 PO Box specifiedAnesthe Medical 1522, lam of skin [address] Manda, Miky BYRNE, 120, [id number], [place], [place], tel:[phone] , [place]. tel: [phone] Dennis [place] Urinary tract Mar-0 Alicea In Womens infection, site 9-201 Giselle. Health PA, not 7 700 PO Box specifiedVaginal Medical 1522, Discharge or [facility], LesionEncount , Miky BYRNE, for routine 120, , checking of [place], intrauterine [place], tel: contracep [phone] [facility] for , [place]. test, tel: result negative [phone] Dennis [place] Encntr screen Deshawn-2 Kassandra In Womens for infections w 7-201 Julia. Health PA, sexl mode of 7 700 PO Box transmissEncount Medical 1522, er for insertion [facility], of intrauterine Miky Girard, contraceptive 120, [id number], devicePostpartum [place], Follow-Up, [place], tel: Routine [phone] , [place]. tel: [phone] Associates [facility] Obstruction of Dec-2 Kassandra In Womens bile duct 0-201 Julia. Health PA, 6 700 PO Box Medical 1522, [address] Manda, [facility] [place], 120, [id number], [place], [place], tel:[phone] , [place]. tel: [phone] Associates [facility] Chronic Dec-0 Kassandra In Womens maxillary 2-201 Julia. Health PA, sinusitis 6 700 PO Box Medical 1522, [address] Manda, [facility] [place], 120, [id number], [place], [place], tel:[phone] , [place]. tel: [phone] Associates Andrew Chronic Nov-2 Kassandra In Womens maxillary 2-201 Julia. Health PA, sinusitis 6 700 Box Medical 1522, [address] Manda, [facility] [place], 120, [id number], [place], [place], tel:[phone] , [place]. tel: [phone] Associates Andrew Chronic Nov-1 Kassandra Referring In Womens maxillary 6-201 Julia. Provider: Health CHINEDU, sinusitis 6 700 Julia PO Box Medical Kassandra L, 1522, [place] [address], [facility][1] Dr BYRNE, 120, Miky 120, [id number], Andrew [place], [place], [place], [id number]. tel:[phone] tel: , [place]. 483067 tel: [phone] Associates Andrew Oct-1 Kassandra Referring In Womens 3-201 Julia. Provider: Health CHINEDU, 6 700 Julia PO Box Medical Kassandra L, 1522, [place] [address], [facility][1] [place], 120, Miky 120, [id number], Andrew [place], [place], [place], [id number]. tel:[phone] tel:[phone] , [place]. [id number] tel: [phone] Associates [facility] Rash Sep-1 Kassandra In Womens 9-201 Julia. Health PA, 6 700 PO Box Medical 1522, [address] Manda, [facility] [place], 120, [id number], [place], [place], tel:+ [phone] , [place]. tel: [phone] Associates Andrew Gonsalez Nov- Kassandra In Womens 8-201 Julia. Health CHINEDU, 6 700 PO Box Medical 1522, [address] Manda, [facility] [place], 120, [id number], [place], [place], tel:+ [phone] , [place]. tel: [phone] [facility] Andrew Vaginal Mar- Alicea Referring In Womens Discharge or 3201 Giselle. Provider: Health CHINEDU, Alayna johnson, 5 700 Brigida PO Box unspecified Medical [facility] S, 1522, [address] Manda, [facility][1] [place], 120, Miky 120, [id number], Andrew, [place], [place], [place], [id number]. tel:+ [phone] tel: , [place]. 727819 tel: [phone] Dennis [place] 0 Holdidania Referring In Womens 9-201 Brigida. Provider: Health CHINEDU, 2 700 Pediatrics [facility], 1522, [address] Manda, [facility][1] [place], 120, Drive [id number], [place], [facility], [place], [place], [place], tel:+ [phone]. [phone] , [place]. tel: tel: [phone] Family History Family Member Diagnosis Age At Onset No Family history of Family history not known. Patient is adopted. Mother Cardiovascular Disease Immunizations Vaccine Date Status Comments [facility] completed Source: New Immunization Record Influenza, injectable, completed Source: New Immunization Record quadrivalent, preservative free, 3 yrs or older Tdap completed Source: New Immunization Record Rhophyla completed Source: New Immunization Record Influenza, injectable, completed Source: New Immunization Record quadrivalent, preservative free, 3 yrs or older Payers Payer name Insurance type Covered constitution party ID Authorization(s) [employer] [place] - Medicaid MC [id number] BCBS Out Of State [id number] [employer] [place] Medicaid [place] [id number] [employer] [place] [employer] - Medicaid [place] [id number] [employer] [place] Medicaid [place] [id number] [employer] [place] [employer] - Medicaid [place] [id number] [employer] [place] [employer] - Medicaid MC [id number] Social History Type Description Quantity Date Captured Alcohol Use Details No Caffeine Use Details Unknown Tobacco Use Status Unknown Smoking Status Never smoker Vital Signs Date / Height Weight BMI Pulse Blood Temperature Respiratory Body Head BMI Time: Rate Pressure Rate Surface Circumference percentile Area 228.80 40.5 135/2018 lbs 3 mm[Hg] 3:57 kg/m PM eter (2) Chief Complaint And Reason For Visit Unknown [...] Ordered: Referrals: Otolaryngology. Mian Smith MD. Location: [place]. Consult Referral Ordered: ordered German Maurer -Dermatology (related to Rash) Referral Referred To: ordered German Maurer [id number] [place], [place] Ordered: Referrals: Dermatology. German Maurer. Evaluate and treat Future Order: Lab Order Pap Smear With HPV Reflex If Ordered ASCUS ([id number]), Collected on: Future Order: Radiology Order Complete OB Ultrasound > 14 Ordered Weeks ([id number]) Future Order: Radiology Order Ultrasound OB Follow-up ([id number]) Ordered Future Order: Radiology Order Nuchal Translucency ([id number]) Ordered Date Type Problem Goal Intervention Status [...]
--- OUTSIDE RECORDS SUMMARY | 2017-10-12 05:38 | External Medical Summary | Continuity of Care Document ---
:1995 Author Organization [facility] Address [address] [place], [place] [phone] Phone Allergies, Adverse Reactions, Alerts Substance Reaction Severity Status cefuroxime Unknown Active Medications Medication Instructions Dosage Effective Dates Status Comments (start - stop) Gabbie 0.15 take 1 tablet by Not Available - Active mg-0.03 mg tablet oral route every day Kyleena 17.5 - Active mcg/24 hour (5 years) intrauterine device Singulair 10 mg take 1 tablet by 10 MG - Active tablet oral route every day in the evening 19 (with take 1 tablet by Not Available - Active ok to docusate) 29 mg oral route every exchange to iron-1 mg-25 mg day brand covered tablet by XIX Problems Condition Effective Dates (start - stop) Clinical Status Encounter for initial prescription of contraceptive pills Encounter for routine checking of intrauterine contracep dev Chronic maxillary sinusitis - Urinary tract infection, site not specified Vaginal Discharge or Lesion Encounter for routine checking of intrauterine contracep dev Encounter for test, result - negative Chronic maxillary sinusitis - Chronic maxillary sinusitis - Obstruction of bile duct - Urinary tract infection, site not specified Anesthesia of skin Vaginal Discharge or Lesion Dry mouth, unspecified Rash Rash Encntr screen for infections w sexl mode of transmiss Encounter for insertion of - intrauterine contraceptive device Follow-Up, Routine - Vulvar Lesion - Active Active Procedures Procedure Date Office/outpatient visit,est, mod Results Test Name Date and Time Measure Units Reference Range Abnormal Flag Comments Unknown Advance Directives Directive Yes / No Effective Date File Name Unknown Encounters Encounter Practice Location Reason(s) Diagnoses Date Provider Care Team Description For Visit Members Office/outpa [facility] IUD Encounter for Sep-2 Sobbing tient In Womens removal initial Higinio. visit,est, Health CHINEDU, (chief prescription of 7 700 mod PO Box complaint) contraceptive Medical 1522, pillsEncounter for [facility], routine checking Drive, [place], of intrauterine Suite , contracep dev 120, [place], tel:+ [phone], [phone], [place]. tel: [phone] Dennis [place] Urinary tract Mar-2 Alicea In Womens infection, site Giselle. Health CH[facility]EDU, not 7 700 PO Box specifiedAnesthesi Medical 1522, a of skin [address], Ste [place], 120, , [place], [place], tel:[phone] , [place]. tel: [phone] Dennis [place] Urinary tract Mar-0 Alicea In Womens infection, site Giselle. Health CH[facility]EDU, not 7 700 PO Box specifiedVaginal Medical 1522, Discharge or Spring Manda, LesionEncounter Dr [facility] [place], for routine 120, , checking of [facility] intrauterine [place], tel: contracep [phone] [facility] Hospital[facility] for , [place]. test, tel: result negative [phone] Dennis [place] Encntr screen for Deshawn-2 Kassandra In Womens infections w sexl Julia. Health CHINEDU, mode of 7 700 PO Box transmissEncounter Medical 1522, for insertion of [facility], intrauterine Miky Girard, contraceptive 120, , devicePostpartum [place], Follow-Up, Routine [place], tel:[phone] , [place]. tel: [phone] Dennis [place] Obstruction of Dec-2 Kassandra In Womens bile duct 0- Julia. Health CHINEDU, 6 700 PO Box Medical 1522, [address] [place], 120, [id number], [place], [place], tel:[phone] , [place]. tel: [phone] [facility] Chronic maxillary Dec-0 Kassandra In Womens sinusitis 2-201 Julia. Health PA, [address] [facility] Medical 1522, [address] Manda, [facility] [place], 120, [id number], [place], [place], tel:[phone] , [place]. tel: [phone] [facility] Chronic maxillary Nov-2 Kassandra In Womens sinusitis 2-201 Julia. Health PA, [address] [facility] Medical 1522, [address], [facility] [place], 120, [id number], [place], [place], tel:[phone] , [place]. tel: [phone] [facility] Chronic maxillary Nov-1 Kassandra Referring In Womens sinusitis 6-201 Julia. Provider: Health CHINEDU, 6 700 [facility] Kassandra L, 1522, [place] [address], [facility] [place], 120, Miky 120, [id number], Andrew [place], [place], [place], [id number]. tel:[phone] tel: , [place]. 0427[address] tel: [phone] [facility] Oct-2 Kassandra In Womens 7-201 Julia. Health CH[facility]EDU, [address] [facility] Medical 1522, [address], [facility] [place], 120, [id number], [place], [place], tel:[phone] , [place]. tel: [phone] Dennis [place] Oct-1 Kassandra Referring In Womens 3-201 Julia. Provider: Health CHINEDU, 6 700 Julia Box Medical Kassandra L, 1522, [place] [address], [facility] [place], 120, Miky 120, [id number], Andrew [place], [place], [place], [id number]. tel:[phone] tel: , [place]. 190289 tel: [phone] [facility] Rash Sep-1 Kassandra In Womens 9-201 Julia. Health CH[facility]EDU, [address] [facility] Medical [address], [address] Manda, Miky [place], 120, [id number], [place], [place], tel: [phone] , [place]. tel: [phone] Dennis Gonsalez Nov- Kassandra In Womens 8-201 Julia. Health PA, 6 700 PO Box Medical 1522, [address] Manda, [facility] [place], 120, [id number], [place], [place], tel: [phone] , [place]. tel: [phone] Dennis [place] Vaginal Discharge Alicea Referring In Womens or LesionDry 3-201 Giselle. Provider: Health PA, mouth, unspecified 5 700 Brigida Box Medical [facility], 1522, [address] Manda, [facility] [place], 120, Miky 120, [id number], Andrew [place], [place], [place], [id number]. tel: [phone] tel:[phone] , [place]. [address] tel: [phone] Dennis [place] 0 Miguelidania Referring In Womens 9-201 Brigida. Provider: Health CHINEDU, 2 700 Pediatrics [facility], 1522, [address] Manda, [facility], 120, [id number], [facility] [place], [place], [place], [place], tel:+ [phone]. [phone] , [place]. tel: tel: [phone] Family History Family Member Diagnosis Age At [...] [employer] [place] - Medicaid MC [id number] BCBS Out Of [place] [id number] [employer] [place] [employer] - Medicaid MC [id number] [employer] [place] [employer] - Medicaid MC [id number] [employer] [place] [employer] - Medicaid MC [id number] Social History Type Description Quantity Date Captured Alcohol Use Details No Caffeine Use Details Unknown Tobacco Use Status Never smoked tobacco Smoking Status Never smoker Vital Signs Date / Height Weight BMI Pulse Blood Temperature Respiratory Body Head BMI Time: Rate Pressure Rate Surface Circumference percentile Area 211.80 128/72 -2017 lbs mm[Hg] 1:58 PM Chief Complaint And Reason For Visit Most recent encounter only, dated '01/05/2017 13:50'. IUD removal (chief complaint). Description: Patient is frustrated with her current contraception. She has been on her current method of contraception for 9 Months. Her current method of contraception is IUD, Kyleena. She is here today to discuss a change in contraception. She has had previous success with Gabbie. She has previously tried Kyleena and Depo provera without success. She had gonorrhea and chlamydia cultures (Neg/Neg) on 05/06/2016. Patient denies acne, dysmenorrhea, high risk sexual activity, intramenstrual bleeding, irregular menses, pelvic pain and tobacco use. Patient does not have hypertension nor a history of thrombophlebitis or STDs No family history of thrombophlebitis. Has difficulty with continue intermenstrual bleedinglight to moderate flow and sometime just spotting. C/Obloating which she contributes to IUD. Reason For Referral Reason For Referral Unknown Plan Of Care Date Type Action Status Goal Lifestyle education regarding diet completed Goal Lifestyle education regarding diet completed Referral Ordered: ordered Mian Smith MD -Otolaryngology (related to Chronic maxillary sinusitis) Referral Referred To: ordered Mian Smith MD Ordered: Referrals: Otolaryngology. Mian Smith MD. Location: [place]. Consult Referral Ordered: ordered German Maurer -Dermatology (related to Rash) Referral Referred To: ordered German Maurer [id number] [place], [place] Ordered: Referrals: Dermatology. German Maurer. Evaluate and treat Appointment Taylor Melo BOOKED Date Type Problem Goal Intervention Status Start Date Unknown. History Of Present Illness Encounter Date Complaint History Of Present Illness IUD removal Patient is frustrated with her current contraception. She has been on her current method of contraception for 9 Months. Her current method of contraception is IUD, Kyleena. She is here today to discuss a change in contraception. She has had previous success with [place]. She has previously tried Kyleena and Depo provera without success. She had gonorrhea and chlamydia cultures (Neg/Neg) on 05/06/2016. Patient denies acne, dysmenorrhea, high risk sexual activity, intramenstrual bleeding, irregular menses, pelvic pain and tobacco use. Patient does not have hypertension nor a history of thrombophlebitis or STDs No family history of thrombophlebitis. Has difficulty with continue intermenstrual bleedinglight to moderate flow and sometime just spotting. C/O bloating which she contributes to IUD. Functional Status Encounter Date Functional Assessment Cognitive Assessment Unknown Medications Administered Medication Instructions Dosage Effective Dates (start - stop) Status Comments Drug Treatment Unknown Instructions Date Instruction Additional Information Giving encouragement to exercise Related to Body mass index 40.0-44.9 Lifestyle education regarding diet Related to Body mass index 40.0-44.9 Giving encouragement to exercise Related to Body mass index 40.0-44.9 Lifestyle education regarding diet Related to Body mass index 40.0-44.9 Giving encouragement to exercise Related to Body mass index 40.0-44.9 signs and symptoms of -induced hypertension
--- OUTSIDE RECORDS SUMMARY | 2017-10-12 05:38 | External Medical Summary | Continuity of Care Document ---
:1995 Author Organization [facility] Address [address] [place], [place] [id number] Phone Care Team Providers Name Role Phone [...] third trimester 35 weeks gestation of - Chronic maxillary [...] diet controlled 35 weeks gestation of - Supervision of other [...] Procedures Procedure Date OB Visit No Charge Results Test Name Date and Time Measure Units Reference Range Abnormal Flag Comments Panel Description: Strep Gp B Culture Strep Gp B Negative Negative Centers for Disease Control Culture 15:28:00 and Prevention (CDC) and [place] Congressof Obstetricians and Gynecologists (ACOG) guidelines for prevention ofperinatal group B streptococcal (GBS) disease specify co-collection ofa vaginal and rectal swab specimen to maximize sensitivity of GBSdetection. Per the CDC and ACOG, swabbing both the lower vagina andrectum substantially increases the yield of detection compared withsampling the vagina alone. .Penicillin G, ampicillin, or cefazolin are indicated for intrapartumprophylaxis of GBS colonization. Reflex susceptibilitytesting should be performed prior to use of clindamycin only on GBSisolates from penicillin-allergic women who are considered a high riskfor anaphylaxis. Treatment with vancomycin without additional testingis warranted if resistance to clindamycin is noted. Advance Directives Directive Yes / No Effective Date File Name Unknown Encounters Encounter Practice Location Reason(s) Diagnoses Date Provider Care Team Description For Visit Members Dennis [place] Supervision of Kassandra In Womens other high risk 8-201 Julia. Health PA, pregnancies, 8 700 PO Box third Medical 1522, trimesterGestati Center [place], onal diabetes Miky Girard, mellitus in 120, , , diet [place], [place] controlledMatern [place], tel: al care for [phone] [id number] excess , [place]. growth, third tel: trimester, [phone] [id number] weeks gestation of [facility] [place] Encounter for Danis-1 Kassandra In Womens suprvsn of 1-201 Julia. Health PA, normal 8 700 PO Box , third Medical 1522, [email or web address] Center [place], weeks gestation Miky Girard, of 120, , [place], [place], tel:901 , [place]. tel: [phone] Dennis [place] Supervision of Danis-1 Kassandra In Womens Ultrasound other high risk 1-201 Julia. Health PA, pregnancies, 8 700 PO Box third Medical 1522, trimesterGestati Center [place], onal diabetes Miky Girard, mellitus in 120, , , diet [place], [place] [id number] [place], tel:+ weeks gestation [phone] 196790 of , [place]. tel: [phone] Dennis [place] Supervision of August-3 Kassandra Referring In Womens other high risk 1-201 Julia. Provider: Health PA, pregnancies, 8 700 Julia PO Box third Medical Kassandra L, 1522, trimesterMaterna Center 700 Medical [place], l care for Miky Girard Dr, excess 120, Miky 120, [id number], growth, third Andrew [place], [place], [place], [place], [id number]. tel: unsp34 weeks tel: gestation of , [place]. 414689 tel: [phone] Dennis [place] Supervision of May-1 Kassandra In Womens other high risk 5-201 Julia. Health PA, pregnancies, 8 700 PO Box third Medical 1522, trimesterGestati Center [place], onal diabetes Miky Girard, mellitus in 120, , , diet [place], [place] [id number] [place], tel:+ weeks gestation [phone] of , [place]. tel: [phone] Dennis [place] Encounter for Apr-1 Kassandra Referring In Womens suprvsn of 9- Julia. Provider: Health CHINEDU, normal 8 700 Julia PO Box , third Medical Kassandra L, 1522, [id number] [place] [address] Manda, weeks gestation , [facility] [place], of 120, Miky 120, [id number], [place], [place], [place], [id number]. tel:[phone] tel:[phone] , [place]. 274513 tel: [phone] Dennis [place] Gestational Apr-1 Kassandra In Womens Ultrasound diabetes 9- Julia. Health CHINEDU, mellitus in 8 700 PO Box , diet Medical 1522, controlledPlacen Center [place], ta previa Miky Girard, specified as w/o 120, [id number], hemorrhage, [place], third [place], tel: [id number] [phone] weeks gestation , [place]. of tel: [phone] Dennis [place] Mar-2 Kassandra In Womens 3-201 Julia. Health PA, 8 700 PO Box Medical 1522, [place] Manda, Miky Girard, 120, [id number], [place], [place], tel:[phone] , [place]. tel: [phone] Dennis [place] Supervision of Mar-2 Kassandra In Womens other high risk 2-201 Julia. Health PA, pregnancies, 8 700 PO Box second Medical 1522, trimesterPlacent Center rony [place]man previa Miky Girard, specified as w/o 120, [id number], hemorcatherine, [id number] [place], tel: weeks gestation [phone] 196790 of , [place]. tel: [phone] Dennis [place] Supervision of Feb-2 Kassandra In Womens other high risk 1-201 Julia. Health PA, pregnancies, 8 700 PO Box second Medical 1522, trimesterPlacent [place] rony Holman previa Miky Girard, specified as w/o 120, [id number], hemor, second [place], [place], tel: weeks gestation [phone] 196790 of , [place]. tel: [phone] Dennis [place] Supervision of May-2 Kassandra In Womens Ultrasound other high risk 1-201 Julia. Health PA, pregnancies, 8 700 PO Box second Medical 1522, trimesterPlacent [facility], a previa Miky Girard, specified as w/o 120, [id number], hemor, second [place], [place] [id number] [place], tel:+ weeks gestation [phone] 196790 of , [place]. tel: [phone] Dennis [place] Supervision of Apr-3 Kassandra In Womens other high risk 1-201 Julia. Health PA, pregnancies, 8 700 PO Box second Medical 1522, trimesterMatern [facility], care for oth or Miky Girard, susp poor fetl 120, [id number], grth, 2nd tri, [place], [place] unspPlacenta [place], tel: previa specified as w/o hemor, , [place]. second tel: [id number] [phone] weeks gestation of [facility] Encounter for Deshawn-0 Kassandra In Womens suprvsn of 4-201 Julia. Health PA, normal 8 700 PO Box , first Medical 1522, [email or web address] [facility], weeks gestation Miky Girard, of 120, , [place], [place], tel:[phone] , [place]. tel: [phone] Dennis [place] Encounter for Deshawn-0 Kassandra In Womens Ultrasound suprvsn of 4-201 Julia. Health PA, normal 8 700 PO Box , first Medical 1522, [id number] [facility], weeks gestation Miky Girard, of 120, , [place], [place], tel:[phone] , [place]. tel: [phone] Dennis [place] Dec-1 Kassandra In Womens 8-201 Julia. Health PA, 7 700 PO Box Medical 1522, [facility], Miky Girard [place], 120, [id number], [place], [place], tel: , [place]. tel: [phone] Dennis [place] Oth Mar- Kassandra In Womens noninflammatory 3-201 Julia. Health CHINEDU, disorders of 7 700 PO Box vulva and Medical 1522, perineumPap [facility], Smear Screening, , Miky CATY, CervixEncounter 120, , for suprvsn of [place], normal [place], tel:+ , first [phone] [id number] , [place]. weeks gestation tel: of [phone] Dennis [place] Encntr for Nov-2 Mcgraw Referring In Womens suprvsn of 2-201 Anne. Provider: Dede CHE, normal 7 700 Giselle PO Box , unsp, Medical Nixon J, 1522, unsp trimester Center [address] [place] [address] Dr Manda, [facility] [place], 120, Miky 120, , [place], [place], [place], [id number]. tel:[phone] tel:[phone] , [place]. 254723 tel: [phone] Dennis [place] Other specified Nov-2 Alicea In Womens health status 0-201 Giselle. Health CHINEDU, 7 700 PO Box Medical 1522, [place] Dr Manda, Miky BYRNE, 120, , [place], [place], tel: , [place]. tel: [phone] Dennis [place] Encounter for Sep-2 Sobbing In Womens initial 8-201 Higinio. Health PA, prescription of 7 700 PO Box contraceptive Medical 1522, pillsEncounter [facility], for routine Drive, [place], checking of Suite , intrauterine 120, [place] contracep dev [place], [place]: [place], [address], [place]. tel: [phone] Dennis [place] Urinary tract Mar-2 Alicea In Womens infection, site 1-201 [facility]. Health PA, not 7 700 PO Box specifiedAnesthe Medical 1522, lam of skin [place] Dr Manda, [facility] CATY, 120, [id number], [place], [place], tel:[phone] , [place]. tel: [phone] [facility] Urinary tract Mar-0 Alicea In Womens infection, site 9-201 Giselle. Health PA, not 7 700 PO Box specifiedVaginal Medical 1522, Discharge or [facility], [facility], for routine 120, , checking of [place], intrauterine [place], tel:+ contracep [phone] [facility] , [place]. test, tel:+[phone] result negative [phone] [facility] Encntr screen Deshawn-2 Kassandra In Womens for infections w 7-201 Julia. Health PA, sexl mode of 7 700 PO Box transmissEncount Medical 1522, er for insertion [facility], of intrauterine Miky Girard, contraceptive 120, , devicePostpartum [facility], [place], tel:+ Routine [phone] , [place]. tel: [phone] [facility] Obstruction of Dec-2 Kassandra In Womens bile duct 0-201 Julia. Health CHINEDU, 6 700 PO Box Medical 1522, [place] Dr Manda, Miky BYRNE, 120, , [place], [place], tel:[phone] , [place]. tel: [phone] [facility] Chronic Dec-0 Kassandra In Womens maxillary 2-201 Juila. Health CHINEDU, sinusitis 6 700 PO Box Medical 1522, [place] [address] [place], 120, [id number], [place], [place], tel:[phone] , [place]. tel: [phone] [facility] Chronic Nov-2 Kassandra In Womens maxillary 2-201 Julia. Health CHINEDU, sinusitis 6 700 PO Box Medical 1522, [place] [address] [place], 120, [id number], [place], [place], tel:[phone] , [place]. tel: [phone] [facility] Chronic Nov-1 Kassandra Referring In Womens maxillary 6-201 Julia. Provider: Dede CHE, sinusitis 6 700 Julia PO Box Medical Kassandra L, 1522, Center [facility] [address], [facility] Dr BYRNE, 120, Miky 120, [id number], [place], [place], [place], [id number]. tel:[phone] tel: , [place]. 387733 tel: [phone] Dennis [place] Oct-1 Kassandra Referring In Womens 3-201 Julia. Provider: Dede CHE, 6 700 Julia PO Box Medical Kassandra L, 1522, [place] [address], [facility] [place], 120, Miky 120, [id number], [place], [place], [place], [id number]. tel:[phone] tel: , [place]. 225814 tel: [phone] Dennis Gonsalez Sep-1 Kassandra In Womens 9-201 Julia. Dede CHE, 6 700 PO Box Medical 1522, [place] Dr Manda, [facility] [place], 120, [id number], [place], [place], tel:[phone] , [place]. tel: [phone] Dennis Gonsalez Aug-1 Kassandra In Womens 8-201 Julia. Dede CHE, 6 700 PO Box Medical 1522, [place] Dr Manda, [facility] [place], 120, [id number], [place], [place], tel:[phone] , [place]. tel: [phone] Dennis Rodriguez Dec-2 Alicea Referring In Womens Discharge or 3-201 Giselle. Provider: Health CHINEDU, LesionDry mouth, 5 700 Brigida PO Box unspecified Medical Ceci S, 1522, [place] [address], [facility] [place], 120, Miky 120, [id number], [place], [place], [place], [id number]. tel:[phone] tel: , [place]. 066227 tel: [phone] Dennis [place] Oct-0 [place] Referring In Womens 9-201 Brigida. Provider: Dede CHE, 700 Pediatrics [facility], 1522, Center [address], [facility] [place], 120, Drive [id number], [place], 150, [place] CATY, [place], CATY, tel: [phone] 11960. 187173 , [place]. tel: tel: [phone] Family History Family Member Diagnosis Age At [...] older Payers Payer name Insurance type Covered republican ID Authorization(s) [place] - Medicaid MC [id number] BCBS Out Of State [id number] [employer] [place] [employer] - Medicaid MC [id number] [place] Medicaid [place] [id number] [place] Medicaid [place] [id number] [place] Medicaid [place] [id number] [employer] [place] [employer] - Medicaid MC [id number] [employer] [place] [employer] - Medicaid MC [id number] Social History Type Description Quantity Date Captured [...] Ordered: Referrals: Otolaryngology. Mian Smith MD. Location: [place]. Consult Referral Ordered: ordered German Maurer -Dermatology (related to Rash) Referral Referred To: ordered German Maurer [address] [place], [place] Ordered: Referrals: Dermatology. German Maurer. Evaluate and treat Appointment Taylor Melo - [facility] - Primary C/S BOOKED Appointment Taylor Melo BOOKED Future Order: Lab Order Pap Smear With HPV Reflex If Ordered ASCUS ([id number]), Collected on: Future Order: Radiology Order Complete OB Ultrasound > 14 Ordered Weeks ([id number]) Future Order: Radiology Order Ultrasound OB Follow-up ([id number]) Ordered Future Order: Radiology Order Ultrasound OB Follow-up ([id number]) Ordered Future Order: Radiology Order Nuchal Translucency ([id number]) Ordered Date Type Problem Goal Intervention Status [...]
--- OUTSIDE RECORDS SUMMARY | 2017-10-12 05:39 | External Medical Summary | Continuity of Care Document ---
:1995 Author Organization [facility] Address [address] [place], [place] [address] Phone Care Team Providers Name Role Phone Snehal Corbin MD Unavailable Unavailable Allergies, Adverse Reactions, Alerts Substance Reaction Severity Status cefuroxime Unknown Active Medications Medication Instructions Dosage Effective Status Comments Dates (start - stop) acyclovir 400 mg take 1 tablet by 400 MG - Active tablet ORAL route 3 times every day Lexapro 10 mg take 1 tablet by 10 MG - Active tablet oral route every day 19 take 1 tablet by Not Available - Active ok to (with docusate) oral route every exchange to 29 mg iron-1 day brand covered mg-25 mg tablet by XIX Singulair 10 mg take 1 tablet by 10 MG - Active tablet oral route every day in the evening Zithromax Z-Cameron take 2 tablet by 500 MG - No Longer 250 mg tablet oral route every Active day for 1 day then 1 tablet (250 mg) by oral route once daily for 4 days Problems Condition Effective Dates (start - stop) Clinical Status Supervision of other high risk - pregnancies, second trimester Matern care for oth or susp poor fetl - grth, 2nd tri, unsp Placenta previa specified as w/o - hemor, second trimester 17 weeks gestation of - Chronic maxillary sinusitis [...] second trimester 20 weeks gestation of - Rash Rash Encntr [...] Procedure Date 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 r[address], Miky [place], specified as w/o 120, [id number], hemctaherine hong [place] [id number] [place], tel:+3162 weeks gestation [phone] 680351 of , [place]. tel: [phone] Dennis [place] Supervision of May- Kassandra In Womens Ultrasound other high risk 1-201 Julia. Health PA, pregnancies, 8 700 PO Box second Medical 1522, trimesterPlacent [facility], a previa Miky Girard, specified as w/o 120, [id number], hemor, second [place], [place] [id number] [place], tel:+ weeks gestation [phone] 196790 of , [place]. tel: [phone] Dennis [place] Supervision of Deshawn-3 Kassandra In Womens other high risk 1-201 Julia. Health PA, pregnancies, 8 700 PO Box second Medical 1522, trimesterMatern [facility], care for oth or Miky Girard, susp poor fetl 120, [id number], grth, 2nd tri, [place], [place] unspPlacenta [place], tel:+ previa specified [phone] as w/o hemor, , [place]. second tel: [phone] weeks gestation of [facility] Encounter for Deshawn-0 Kassandra In Womens suprvsn of 4-201 Julia. Health PA, normal 8 700 PO Box , first Medical 1522, [id number] [facility], weeks gestation Miky Girard, of 120, , [place], [place], tel:[phone] , [place]. tel: [phone] Dennis [place] Encounter for Deshawn-0 Kassandra In Womens Ultrasound suprvsn of 4-201 Julia. Health PA, normal 8 700 PO Box , first Medical 1522, [id number] [facility], weeks gestation Miky Girard, of 120, , [place], [place], tel:[phone] , [place]. tel: [phone] Dennis [place] Dec-1 Kassandra In Womens 8-201 Julia. Health PA, 7 700 PO Box Medical 1522, [facility], Miky Girard, 120, [id number], [place], [place], tel:[phone] , [place]. tel: [phone] Dennis [place] Oth Dec-1 Kassandra In Womens noninflammatory 3-201 Julia. Health PA, disorders of 7 700 PO Box vulva and Medical 1522, perineumPap [facility], Smear Screening, , Miky BYRNE, CervixEncounter 120, [id number], for suprvsn of [place], [place] normal [place], tel:+[phone] , first [phone] [id number] , [place]. weeks gestation tel: of [phone] Dennis [place] Encntr for Nov-2 Mcgraw Referring In Womens suprvsn of 2-201 Anne. Provider: Health CHINEDU, normal 7 700 Giselle PO Box , unsp, Medical Nixon J, 1522, unsp trimester Center [address] Manda, [facility] [place], 120, Miky 120, , [place], [place], [place], [id number]. tel:[phone] tel:196690 , [place]. 657908 tel: [phone] Dennis [place] Other specified Nov-2 Alicea In Womens health status 0-201 Giselle. Health CHINEDU, 7 700 PO Box Medical 1522, [place] [address] Manda, Miky BYRNE, 120, [id number], [place], [place], tel:[phone] , [place]. tel: [phone] Dennis [place] Encounter for Sep-2 Sobbing In Womens initial 8-201 Higinio. Health CHINEDU, prescription of 7 700 PO Box contraceptive Medical 1522, [facility], for routine Drive, [place], checking of [id number], intrauterine 120, [place] contracep dev [place], [place]: [place], [address], [place]. tel: [phone] Dennis [place] Urinary tract Mar-2 Alicea In Womens infection, site 1-201 Giselle. Health PA, not 7 700 PO Box specifiedAnesthe Medical 1522, lam of skin Center Dr Manda, Miky [place], 120, [id number], [place], [place], tel:[phone] , [place]. tel: [phone] Dennis [place] Urinary tract Mar-0 Alicea In Womens infection, site 9-201 Giselle. Health PA, not 7 700 PO Box specifiedVaginal Medical 1522, Discharge or [facility], [facility] , [facility] CATY, for routine 120, , checking of [place], intrauterine [place], tel:+ contracep [phone] [address] [place] , [place]. test, tel: result negative [phone] [facility] Encntr screen Deshawn-2 Kassandra In Womens for infections w 7-201 Julia. Health PA, sexl mode of 7 700 PO Box transmissEncount Medical 1522, er for insertion [facility], of intrauterine Miky Girard, contraceptive 120, , devicePostpartum [place], [place]-Up, [place], tel: Routine [phone] [address] , [place]. tel: [phone] [facility] Obstruction of Dec-2 Kassandra In Womens bile duct 0-201 Julia. Health CHINEDU, 6 700 PO Box [facility] 1522, [address] Manda, Miky CATY, 120, , [place], [place], tel:[phone] , [place]. tel: [phone] Associates [place] Chronic Dec-0 Kassandra In Womens maxillary 2-201 Julia. Health CHINEDU, sinusitis 6 700 PO Box Medical 1522, [address] Manda, Miky [place], 120, [id number], [place], [place], tel:[phone] , [place]. tel: [phone] [facility] Chronic Nov-2 Kassandra In Womens maxillary 2-201 Julia. Health CHINEDU, sinusitis 6 700 PO Box Medical 1522, [address] Manda, Miky [place], 120, [id number], [place], [place], tel:[phone] , [place]. tel: [phone] [facility] Chronic Nov-1 Kassandra Referring In Womens maxillary 6-201 Julia. Provider: Health CHINEDU, sinusitis 6 700 Julia PO Box Medical Kassandra L, 1522, [place] [address], [facility] [place], 120, Miky 120, , [place], [place], [place], [id number]. tel:[phone] tel: , [place]. 243941 tel: [phone] Associates [facility] Oct-1 Kassandra Referring In Womens 3-201 Julia. Provider: Dede CHE, 6 700 Julia PO Box Medical Kassandra L, 1522, [address] Manda, [facility] [place], 120, Miky 120, [id number], [place], [place], [place], [id number]. tel:[phone] tel: , [place]. 414156 tel: [phone] Associates [facility] Gonsalez Sep-1 Kassandra In Womens 9-201 Julia. Health CHINEDU, 6 700 PO Box Medical 1522, [address] Manda, [facility] [place], 120, [id number], [place], [place], tel:9016 , [place]. tel: [phone] Associates [facility] Gonsalez Aug-1 Kassandra In Womens 8-201 Julia. Health CHINEDU, 6 700 PO Box [facility] 1522, [address] Manda, [facility] [place], 120, [id number], [place], [place], tel:[phone] , [place]. tel: [phone] Associates Andrew Rodriguez Dec-2 Alice[place] Referring In Womens Discharge or 3-201 Giselle. Provider: Health CHINEDU, Alayna johnson, 5 700 Brigida PO Box unspecified Medical Ceci S, 1522, [place] [address], [facility] [place], 120, Miky 120, [id number], [place], [place], [place], [id number]. tel:[phone] tel: , [place]. 669869 tel: [phone] Associates Andrew Oct-0 [place] Referring In Womens 9-201 Brigida. Provider: Dede CHE, 2 700 Pediatrics PO Box Medical [place], 1522, [address] Manda, [facility] [place], 120, Drive [id number], Andrew [facility], [place] Andrew BYRNE [place], tel:[phone] [address]. 376687 , [place]. tel: tel: [phone] Family History Family Member Diagnosis Age At Onset No Family history of Family history not known. Patient is adopted. Mother Cardiovascular Disease Immunizations Vaccine Date Status Comments Influenza, injectable, completed Source: New Immunization Record quadrivalent, preservative free, 3 yrs or older Tdap completed Source: New Immunization Record Rhophylac completed Source: New Immunization Record Influenza, injectable, completed Source: New Immunization Record quadrivalent, preservative free, 3 yrs or older Payers Payer name Insurance type Covered republican ID Authorization(s) [employer] [place] - Medicaid MC [id number] [facility] Out Of [facility] [id number] [employer] [place] [employer] - Medicaid MC [id number] [place] [place] - Medicaid MC [id number] [employer] [place] [employer] - Medicaid MC [id number] [employer] [place] [employer] - Medicaid MC [id number] Social History Type Description Quantity Date Captured Alcohol Use Details No Caffeine Use Details Unknown Tobacco Use Status Unknown Smoking Status Never smoker Vital Signs Date / Height Weight BMI Pulse Blood Temperature Respiratory Body Head BMI Time: Rate Pressure Rate Surface Circumference percentile Area 212.10 37.5 111/67 lbs 7 mm[Hg] 4:40 kg/m PM eter (2) 212.10 37.5 -2018 lbs 7 4:40 kg/m PM eter (2) Chief Complaint And [...] Ordered: Referrals: Otolaryngology. Mian Smith MD. Location: [place]. Consult Referral Ordered: ordered German Maurer -Dermatology (related to Rash) Referral Referred To: ordered German Maurer [address] [place], [place] Ordered: Referrals: Dermatology. German Maurer. Evaluate and treat Appointment Taylor Melo BOOKED Appointment Taylor Melo BOOKED Future Order: Lab Order Pap Smear With HPV Reflex If Ordered ASCUS (WPMPap1), Collected on: Future Order: Radiology Order Complete OB Ultrasound > 14 Ordered Weeks ([id number]) Future Order: Radiology Order Nuchal Translucency ([id number]) Ordered Date Type Problem Goal Intervention Status [...]
--- OUTSIDE RECORDS SUMMARY | 2017-10-12 05:39 | External Medical Summary | Continuity of Care Document ---
:1995 Author Organization [facility] [employer] [facility] Address [address] [place], [place] [id number] Phone Care Team Providers Name Role Phone Snehal Corbin MD Unavailable Unavailable Allergies, Adverse Reactions, Alerts Substance Reaction Severity Status cefuroxime Unknown Active Medications Medication Instructions Dosage Effective Dates Status Comments (start - stop) 19 (with take 1 tablet by Not Available - Active ok to exchange docusate) 29 mg oral route every to brand iron-1 mg-25 mg day covered by XIX tablet Singulair 10 mg take 1 tablet by 10 MG - Active tablet oral route every day in the evening Problems Condition Effective Dates (start - stop) Clinical Status Encntr for suprvsn of normal , unsp, unsp trimester Chronic maxillary sinusitis - Other specified health status Chronic maxillary sinusitis - Chronic maxillary sinusitis [...] for routine checking of intrauterine contracep dev Vulvar Lesion - Active Active Procedures Procedure Date Immuniz admnin, 1 vac, sngl/combo 19 Yrs + Flu Vaccine - Quadrivalent No Charge Office Visit Results Test Name Date and Time Measure Units Reference Range Abnormal Flag Comments Panel Description: OBSTETRIC PANEL WHITE BLOOD CELL 11.0 Thousand/uL 3.8-10.8 H COUNT 11:11:00 RED BLOOD CELL 5.09 Million/uL 3.80-5.10 N COUNT 11:11:00 HEMOGLOBIN 15.7 g/dL 11.7-15.5 H 11:11:00 HEMATOCRIT 45.1 % 35.0-45.0 H 11:11:00 MCV 88.6 fL 80.0-100.0 N 11:11:00 MCH 30.8 pg 27.0-33.0 N 11:11:00 MCHC 34.8 g/dL 32.0-36.0 N 11:11:00 RDW 12.3 % 11.0-15.0 N 11:11:00 PLATELET COUNT 324 Thousand/uL 140-400 N 11:11:00 MPV 11.2 fL 7.5-12.5 N 11:11:00 ABSOLUTE 7700 cells/uL 2627-0337 N NEUTROPHILS 11:11:00 ABSOLUTE 2376 cells/uL 850-3900 N LYMPHOCYTES 11:11:00 ABSOLUTE 748 cells/uL 200-950 N MONOCYTES 11:11:00 ABSOLUTE 88 cells/uL 15-500 N EOSINOPHILS 11:11:00 ABSOLUTE 88 cells/uL 0-200 N BASOPHILS 11:11:00 NEUTROPHILS 70 % N 11:11:00 LYMPHOCYTES 21.6 % N 11:11:00 MONOCYTES 6.8 % N 11:11:00 EOSINOPHILS 0.8 % N 11:11:00 BASOPHILS 0.8 % N 11:11:00 ANTIBODY SCREEN, NO ANTIBODIES N RBC W/REFL ID, 11:11:00 DETECTED Reference range TITER AND AG No antibodies detected This assay is a screening test for the detection of red blood cell antibodies. The test is not to be used for pretransfusion screening or for the medical management of an alloimmunized . ABO GROUP O 11:11:00 RH TYPE RH (D) 11:11:00 NEGATIVE RPR (DX) W/REFL NON-REACTIVE NON-REACTIV N TITER AND 11:11:00 E CONFIRMATORY TESTING HEPATITIS B NON-REACTIVE NON-REACTIV N SURFACE ANTIGEN 11:11:00 E RUBELLA ANTIBODY 2.81 index N Index (IGG) 11:11:00 Interpretation ----- <0.90 Not consistent with Immunity 0.90-0.99 Equivocal > or=1.00 Consistent with Immunity The presence of rubella IgG antibody suggests immunization or past or current infection withrubella virus.Test performed at [facility] [id number] [place] [address]Wfwzkup r: MATY FIGUEROA DO,MPH Panel Description: HIV 1/2 ANTIGEN/ANTIBODY,FOURTH GENERATION W/RFL HIV NON-REACTIVE NON-REACTIVE N HIV-1 antigen and HIV-1/HIV- 2 antibodies were AG/AB, 11:11:00 notdetected. There is no laboratory evidence of 4TH GEN HIVinfection. PLEASE NOTE: This information has been disclosed toyou from records whose confidentiality may beprotected by state law. If your state requires suchprotection, then the state law prohibits you frommaking any further disclosure of the informationwithout the specific written consent of the personto whom it pertains, or as otherwise permitted by law.A general authorization for the release of medical orother information is NOT sufficient for this purpose. For additional information please refer tohttp://education.Familiar/faq/RLQ983(This link is being provided for informational/educational purposes only.) The performance of this assay has not been clinicallyvalidated in patients less than 2 years old. REPORT COMMENT:FASTING:NOTest performed at [facility] [id number] [place] [address]Boeaeujx: MATY FIGUEROA DO,MPH Panel Description: Bacteria identified in Urine by Culture CULTURE, URINE, SEE NOTE CULTURE, URINE, ROUTINE MICRO ROUTINE 11:11:00 NUMBER: [id number] TEST STATUS: FINAL SPECIMEN SOURCE: URINE SPECIMEN QUALITY: ADEQUATE RESULT: Multiple organisms present, each less than 10,000 CFU/mL. These organisms, commonly found on external and internal genitalia, are considered to be colonizers. No further testing performed.REPORT COMMENT:RFASTING:UNKNOWNTest performed at [facility] [id number] [place] [address]Cyllayor: MATY FIGUEROA DO,MPH Advance Directives Directive Yes / No Effective Date File Name Unknown Encounters Encounter Practice Location Reason(s) Diagnoses Date Provider Care Team Description For Visit Members Dennis [place] Early ob Encntr for suprvsn Nov-2 Mcgraw Referring In Womens (chief of [place] 2-201 [place]. Provider: Dede CHE, complaint) , unsp, 7 700 Giselle PO Box unsp trimester Medical Alicea J, 1522, Center [address] [place] [address] Dr Manda, [facility] [place], 120, Miky 120, , [place], [place], [facility], [id number]. tel:[phone] tel:[phone] , [place]. [address] tel: [phone] Dennis [place] Other specified Nov-2 Alicea In Womens health status 0-201 Giselle. Dede CHE, 7 700 PO Box Medical 1522, [place] [address] Manda, [facility] [place], 120, [id number], [place], [place], tel:[phone] , [place]. tel:[phone] Dennis [place] Encounter for Sep-2 Sobbing In Womens initial 8-201 Higinio. Dede CHE, prescription of 7 700 PO Box contraceptive Medical 1522, pillsEncounter for [place] Manda, routine checking Drive, [place], of intrauterine [id number], contracep dev 120, [place], tel:[phone] [place], [phone], [place]. tel:[phone] Dennis [place] Urinary tract Mar-2 Alicea In Womens infection, site 1-201 Giselle. Dede CHE, not 7 700 PO Box specifiedAnesthesi Medical 1522, a of skin [place] [address] Manda, [place], 120, [id number], [place], [place], tel:[phone] , [place]. tel: [phone] [facility] Urinary tract Mar-0 Alicea In Womens infection, site 9-201 Giselle. Health PA, not 7 700 PO Box specifiedVaginal Medical 1522, Discharge or [place] Manda, LesionEncounter , Mik[place] BYRNE, for routine 120, , checking of [place], intrauterine [place], tel:+ contracep [phone] [facility] , . test, tel: result negative [phone] [facility] Encntr screen for Deshawn-2 Kassandra In Womens infections w sexl 7-201 Julia. Health CHINEDU, mode of 7 700 PO Box transmissEncounter Medical 1522, for insertion of [place] j[address], Ste [place], contraceptive 120, , devicePostpartum [facility] Follow-Up, Routine [place], tel:[phone] , . tel: [phone] [facility] Obstruction of Dec-2 Kassandra In Womens bile duct 0-201 Julia. Health CHINEDU, 6 700 PO Box Medical [address], [address], [place], 120, , [facility] [place], tel:[phone] , [place]. tel: [phone] [facility] [place] Chronic maxillary Dec-0 Kassandra In Womens sinusitis 2-201 Julia. Dede CHE, 6 700 PO Box Medical 1522, [address], Ste [place], 120, , [facility] [place], tel:[phone] , [place]. tel: [phone] [facility] [place] Chronic maxillary Nov-2 Kassandra In Womens sinusitis 2-201 Julia. Dede CHE, 6 700 PO Box Medical 1522, [address], Ste [place], 120, , [facility] [place], tel:[phone] , [place]. tel: [phone] [facility] Chronic maxillary Nov-1 Kassandra Referring In Womens sinusitis 6-201 Julia. Provider: Health PA, 6 700 Julia PO Box Medical Kassandra L, 1522, Center [facility] Medical Dr Manda, [facility] [place], 120, Mik[place] 120, [id number], [place], [place], [place], [id number]. tel:[phone] tel: , [place]. 139674 tel: [phone] [facility] Oct-1 Kassandra Referring In Womens 3-201 Julia. Provider: Dede CHE, 6 700 Julia PO Box Medical Kassandra L, 1522, [place] [address] Manda, [facility] [place], 120, Mi[place] 120, [id number], [place], [place], [place], [id number]. tel:[phone] tel: , [place]. 828457 tel: [phone] [facility] Gonsalez Sep-1 Kassandra In Womens 9-201 Julia. Dede CHE, 6 700 [facility] Medical 1522, [place] Dr Manda, [facility] [place], 120, [id number], [place], [place], tel:[phone] , [place]. tel: [phone] Dennis Gonsalez Aug-1 Kassandra In Womens 8-201 Julia. Dede CHE, 6 700 [facility] Medical 1522, [place] [address] Manda, [place], 120, [id number], [place], [place], tel:[phone] , [place]. tel: [phone] [facility] Vaginal Discharge Dec-2 Alicea Referring In Womens or LesionDry 3-201 Giselle. Provider: Health CHINEDU, mouth, unspecified 5 700 Brigida PO Box Medical Holdeman S, 1522, [address] Manda, [facility] [place], 120, Mik[place] 120, [id number], [place], [place], [place], [id number]. tel:[phone] tel: , [place]. 17[address] tel: [phone] Dennis [place] Oct-0 Holdidania Referring In Womens 9-201 Brigida. Provider: Health CHINEDU, 2 700 Pediatrics [facility], 1522, Center [address] Manda, [facility] [place], 120, Drive [id number], [place], 150, [place] CATY, CATY [place], tel: [phone] , [place]. tel: tel: [phone] Family History Family Member Diagnosis Age At [...] [employer] - Medicaid [place] [id number] BCBS Out Of State [id number] [place] - Medicaid [place] [id number] [employer] [place] [employer] - Medicaid MC [id number] [employer] [place] [employer] - Medicaid [place] [id number] [employer] [place] [employer] - Medicaid MC [id number] Social History Type Description Quantity Date Captured Alcohol Use Details No Caffeine Use Details Unknown Tobacco Use Status Never smoked tobacco Smoking Status Never smoker Non-Smoking Tobacco Use : No Details Available : No Details Available Details Vital Signs Date / Height Weight BMI Pulse Blood Temperature Respiratory Body Head BMI Time: Rate Pressure Rate Surface Circumference percentile Area 212.20 86 138/83 2017 lbs /min mm[Hg] 10:41 AM Chief Complaint And Reason For Visit Most recent encounter only, dated '03/01/2017 10:30'. Early ob (chief complaint). Description: 21 yr wf gr 2 p 2 presents today as an early ob with unsuredating. HPI: Quant on 02/27/17 - 34,320. Reported on 02/27 when seen for an appt. unsure dating. Here today for early office sono. Dr. Cannon out ill. EW consulted. Reason For Referral Reason For Referral Unknown Plan Of Care Date Type Action Status Goal Lifestyle education regarding diet completed Goal Lifestyle education regarding diet completed Goal Lifestyle education regarding diet completed Referral Ordered: ordered Mian Smith MD -Otolaryngology (related to Chronic maxillary sinusitis) Referral Referred To: ordered Mian Smith MD Ordered: Referrals: Otolaryngology. Mian Smith MD. Location: [place]. Consult Referral Ordered: ordered German Maurer -Dermatology (related to Rash) Referral Referred To: ordered German Maurer [address] [place], [place] Ordered: Referrals: Dermatology. German Maurer. Evaluate and treat Appointment Taylor Melo BOOKED Appointment Taylor Melo BOOKED Date Type Problem Goal Intervention Status Start Date Unknown. History Of Present Illness Encounter Date Complaint History Of Present Illness Early ob 21 yr wf gr 2 p 2 presents today as an early ob with unsure dating. HPI: Quant on 02/27/ - 34,320. Reported on 02/27 when seen for an appt. unsure dating. Here today for early office sono. Dr. Cannon out ill. EW consulted. Functional Status Encounter Date Functional Assessment Cognitive [...]
--- OUTSIDE RECORDS SUMMARY | 2017-10-12 05:39 | External Medical Summary | Continuity of Care Document ---
:1995 Author Organization [facility] [employer] [place] Address [address] [place], [place] [address] Phone Care Team Providers Name Role Phone Snehal Corbin MD Unavailable Unavailable Allergies, Adverse Reactions, Alerts Substance Reaction Severity Status cefuroxime Unknown Active Medications Medication Instructions Dosage Effective Dates Status Comments (start - stop) butalbital-aceta take 1 tablet by Not Available [...] Effective Dates (start - stop) Clinical Status Chronic maxillary sinusitis - Other specified health [...] second trimester 17 weeks gestation of - Rash Rash Encntr [...] Simplex Virus Active Active Procedures Procedure Date Unknown Results Test Name Date and Time Measure Units Reference Range Abnormal Flag Comments Unknown Advance Directives Directive Yes / No Effective Date File Name Unknown Encounters Encounter Practice Location Reason(s) Diagnoses Date Provider Care Team Description For Visit Members Dennis [place] Mar-2 Kassandra In Womens 5-201 Julia. Health PA, 8 700 PO Box Medical 15[address], [place] [address] Manda, [place], 120, [id number], [facility] [place], tel:[phone] , [place]. tel: [phone] Dennis [place] Mar-2 Kassandra In Womens 3-201 Julia. Health PA, 8 700 PO Box Medical [address], [address], [place], 120, [id number], [facility] [place], tel:[phone] , [place]. tel: [phone] Dennis [place] Supervision of Mar-2 Kassandra In Womens other high risk 2-201 Julia. Health PA, pregnancies, 8 700 PO Box second Medical 1522, trimesterPlacent [place] r[address], Ste [place], specified as w/o 120, [id number], catherine louise, [id number] [place], tel:[phone] weeks gestation [phone] of , [place]. tel: [phone] Dennis [place] Supervision of Feb-2 Kassandra In Womens other high risk 1-201 Julia. Health PA, pregnancies, 8 700 PO Box second Medical 1522, trimesterPlacent [place] r[address], Ste [place], specified as w/o 120, [id number], catherine louise, [id number] [place], tel:[phone] weeks gestation [phone] of , [place]. tel: [phone] Dennis [place] Supervision of Feb-2 Kassandra In Womens Ultrasound other high risk 1-201 Julia. Health CHINEDU, pregnancies, 8 700 PO Box second Medical 1522, trimesterPlacent [place] r[address], Ste [place], specified as w/o 120, [id number], catherine louise, [id number] [place], tel:[phone] weeks gestation [phone] of , [place]. tel: [phone] Dennis [place] Supervision of Deshawn-3 Kassandra In Womens other high risk 1-201 Julia. Health PA, pregnancies, 8 700 PO Box second Medical 1522, trimesterMatern [facility], care for oth or Miky Girard, susp poor fetl 120, [id number], grth, 2nd tri, [place], unspPlacenta [place], tel: previa specified [phone] as w/o hemor, , [place]. second tel: [id number] [phone] weeks gestation of [facility] Encounter for Deshawn-0 Kassandra In Womens suprvsn of 4-201 Julia. Health PA, normal 8 700 PO Box , first Medical 1522, [email or web address] [facility], weeks gestation Miky Girard, of 120, , [place], [place], tel:[phone] , [place]. tel: [phone] Dennis [place] Encounter for Deshawn-0 Kassandra In Womens Ultrasound suprvsn of 4-201 Julia. Health PA, normal 8 700 PO Box , first Medical 1522, [email or web address] [facility], weeks gestation Miky Girard, of 120, , [place], [place], tel:[phone] , [place]. tel: [phone] [facility] Dec-1 Kassandra In Womens 8-201 Julia. Health PA, 7 700 PO Box Medical 1522, [facility], Miky Girard, 120, , [place], [place], tel:[phone] , [place]. tel: [phone] [facility] Oth Dec-1 Kassandra In Womens noninflammatory 3-201 Julia. Health PA, disorders of 7 700 PO Box vulva and Medical 1522, perineumPap [facility], Smear Screening, Miky Girard, CervixEncounter 120, , for suprvsn of [place], normal [place], tel: , first [id number] , [place]. weeks gestation tel: of [phone] Dennis [place] Encntr for Nov-2 Mcgraw Referring In Womens suprvsn of 2-201 Anne. Provider: Dede CHE, normal 7 700 Giselle PO Box , unsp, Medical Nixon J, 1522, unsp trimester Center [address] [facility] [address] Manda, [facility] [place], 120, Mik[place] 120, [id number], [place], [place], [place], [id number]. tel:[phone] tel: , [place]. 5064[address] tel: [phone] Dennis [place] Other specified Nov-2 Alicea In Womens health status 0-201 Giselle. Dede CHE, 7 700 PO Box Medical 1522, [place] Dr Manda, [facility] [place], 120, [id number], [place], [place], tel:[phone] , [place]. tel: [phone] Dennis [place] Encounter for Sep-2 Sobbing In Womens initial 8-201 Higinio. Health CHINEDU, prescription of 7 700 PO Box contraceptive Medical 1522, [facility] Manda, for routine Drive, [place], checking of Suite , intrauterine 120, [place] contracep dev [place], [place]: [place], [phone], [place]. tel: [phone] Dennis [place] Urinary tract Mar-2 Alicea In Womens infection, site 1-201 [facility]. Health CHINEDU, not 7 700 PO Box specifiedAnesthe Medical 1522, lam of skin Center Dr Manda, [facility] [place], 120, [id number], [place], [place], tel:[phone] , [place]. tel: [phone] Dennis [place] Urinary tract Mar-0 Alicea In Womens infection, site 9-201 Giselle. Health CHINEDU, not 7 700 PO Box specifiedVaginal Medical 1522, Discharge or [place] Manda LesionYola Girard, [facility], for routine 120, [id number], checking of [place], intrauterine [place], tel: contracep [phone] devEncounter for , [place]. test, tel: result negative [phone] [facility] Encntr screen Deshawn-2 Kassandra In Womens for infections w 7-201 Julia. Health CHINEDU, sexl mode of 7 700 PO Box [facility]Enc[facility] Medical 1522, er for insertion [facility], of intrauterine , [facility], contraceptive 120, [id number], devicePostpartum [place], Follow-Up, [place], tel: Routine [phone] , [place]. tel: [phone] [facility] Obstruction of Dec-2 Kassandra In Womens bile duct 0-201 Julia. Dede CHE, 6 700 PO Box [facility] 1522, [place] Dr Manda, [facility] CATY, 120, [id number], [place], [place], tel:[phone] , [place]. tel: [phone] [facility] Chronic Dec-0 Kassandra In Womens maxillary 2-201 Julia. Dede CHE, sinusitis 6 700 PO [facility] 1522, [place] Dr Manda, [facility] CATY, 120, [id number], [place], [place], tel:[phone] , [place]. tel: [phone] [facility] Chronic Nov-2 Kassandra In Womens maxillary 2-201 Julia. Dede CHE, sinusitis 6 700 PO Box Medical 1522, [place] Dr Manda, [facility] [place], 120, [id number], [place], [place], tel:+ [phone] , [place]. tel: [phone] [facility] Chronic Nov-1 Kassandra Referring In Womens maxillary 6-201 Julia. Provider: Dede CHE, sinusitis 6 700 Julia PO Box Medical Kassandra L, 1522, [address] Manda, [facility] [place], 120, Miky 120, [id number], [place], [place], [place], [id number]. tel:[phone] tel:[phone] , [place]. 183492 tel: [phone] Dennis [place] Oct-1 Kassandra Referring In Womens 3-201 Juila. Provider: Health PA, 6 700 Julia PO Box Medical Kassandra L, 1522, [place] [address], [facility] [place], 120, Miky 120, [id number], [place], [place], [place], [id number]. tel:[phone] tel: , [place]. 280852 tel: [phone] [facility] Gonsalez Sep-1 Kassandra In Womens 9-201 Julia. Health CHINEDU, [address] [facility] Medical 1522, [place] Dr Manda, [facility] [place], 120, [id number], [place], [place], tel:[phone] , [place]. tel: [phone] [facility] Gonsalez Aug-1 Kassandra In Womens 8-201 Julia. Health CHINEDU, 6 700 [facility] 1522, [place] Dr Manda, [facility] [place], 120, [id number], [place], [place], tel:[phone] , [place]. tel: [phone] Associates [facility] Rodriguez Dec-2 Alicea Referring In Womens Discharge or 3-201 Giselle. Provider: Dede CHE, LesionDry mouth, 5 700 Brigida PO Box unspecified Medical Ceci S, 1522, [place] [address], [facility] [place], 120, Miky 120, [id number], [place], [place], [place], [id number]. tel:[phone] tel: , [place]. 492124 tel: [phone] Dennis [place] Oct-0 Ceci Referring In Womens 9-201 Brigida. Provider: Dede CHE, 2 700 Pediatrics [facility], 1522, [place] [address], [facility] [place], 120, Drive [id number], Andrew [facility], CATY, [place], [place], tel: [phone] [address]. , [place]. tel: tel: [phone] Family History Family Member Diagnosis Age At [...] [place] - Medicaid [place] [id number] BCBS Out Of State [id number] [employer] [place] [employer] - Medicaid [place] [id number] [place] - Medicaid [place] [id number] [employer] [place] [employer] - Medicaid [place] [id number] [employer] [place] [employer] - Medicaid MC [id number] Social History Type Description Quantity Date Captured [...] Ordered: Referrals: Otolaryngology. Mian Smith MD. Location: [place]. Consult Referral Ordered: ordered German Maurer -Dermatology (related to Rash) Referral Referred To: ordered German Maurer [address] [place], [place] Ordered: Referrals: Dermatology. German Maurer. Evaluate and treat Appointment Taylor Melo BOOKED Appointment Taylor Melo BOOKED Future Order: Lab Order Pap Smear With HPV Reflex If Ordered ASCUS ([id number]), Collected on: Future Order: Radiology Order Complete OB Ultrasound > 14 Ordered Weeks ([id number]) Future Order: Radiology Order Nuchal Translucency ([id number]) Ordered Date Type Problem Goal Intervention Status [...]
--- OUTSIDE RECORDS SUMMARY | 2017-10-12 05:39 | External Medical Summary | Continuity of Care Document ---
:1995 Author Organization [facility] [email or web address] [place] Address [address] [place], [place] [id number] Phone Care Team Providers Name Role Phone Snehal Corbin MD Unavailable Unavailable Allergies, Adverse Reactions, Alerts Substance Reaction Severity Status cefuroxime Unknown Active Medications Medication Instructions Dosage Effective Dates Status Comments (start - stop) acyclovir 400 mg take 1 tablet by 400 MG - Active tablet ORAL route 3 times every day Lexapro 10 mg take 1 tablet by 10 MG - Active tablet oral route every day 19 (with take 1 tablet by Not [...] first trimester 13 weeks gestation of - Chronic maxillary sinusitis [...] For Visit Members Dennis [place] Encounter for Deshawn-0 Kassandra In Womens suprvsn of 4-[address], normal 8 700 PO Box , first Medical 1522, [facility], weeks gestation Miky Girard, of 120, , [place], [place], tel:[phone] , [place]. tel:[phone] Dennis [place] Encounter for Deshawn-0 Kassandra In Womens Ultrasound suprvsn of [address], normal 8 700 PO Box , first Medical 1522, [email or web address] [facility], weeks gestation Miky Girard, of 120, , [place], tel:[phone] , [place]. tel:[phone] Dennis [place] Dec-1 Kassandra In Womens 8-[address], 7 700 PO Box Medical 1522, [facility], Miky Girard, 120, , [place], tel:[phone] , [place]. tel:[phone] Dennis [place] Oth Dec-1 Kassandra In Womens noninflammatory 3-[address], disorders of 7 700 PO Box vulva and Medical 1522, perineumPap [facility], Smear Screening, Miky Girard, CervixEncounter 120, , for suprvsn of [place], normal [place], tel:+ , first [id number] , [place]. weeks gestation tel: of [phone] Dennis [place] Encntr for Nov-2 Mcgraw Referring In Womens suprvsn of 2-201 Anne. Provider: Dede CHE, normal 7 700 Giselle PO Box , unsp, Medical Nixon J, 1522, unsp trimester Center [address] [place] [address] Dr Manda, [facility] [place], 120, Miky 120, [id number], [place], [place], [place], [id number]. tel:[phone] tel: , [place]. 810542 tel: [phone] Dennis [place] Other specified Nov-2 Alicea In Womens health status 0-201 Giselle. Dede CHE, 7 700 PO Box Medical 1522, [place] [address] Manda, [facility] [place], 120, , [place], [place], tel:[phone] , [place]. tel: [phone] Dennis [place] Encounter for Sep-2 Sobbing In Womens initial 8-201 Higinio. Health [place], prescription of 7 700 PO Box [facility]ptive [facility] for routine Drive, [place], checking of [id number], intrauterine 120, [place] contracep dev [place], tel: [place], [phone], [place]. tel: [phone] Dennis [place] Urinary tract Mar-2 Alicea In Womens infection, site 1-201 Giselle. Health [place], not 7 700 PO Box specifiedAnesthe Medical 1522, lam of skin [place] [address] Manda, [facility] [place], 120, [id number], [place], tel:[phone] , [place]. tel: [phone] Dennis [place] Urinary tract Mar-0 Alicea In Womens infection, site 9-201 Giselle. Health [place], not 7 700 PO Box specifiedVaginal Medical 1522, Discharge or [place] Manda LesionYola Girard, [facility], for routine 120, , checking of [place], intrauterine [place], tel: contracep [phone] [facility] , . test, tel: result negative [phone] Associates Andrew Encntr screen Deshawn-2 Kassandra In Womens for infections w 7-201 Julia. Health [place], sexl mode of 7 700 PO Box [facility] 1522, er for insertion [facility], of intrauterine , [facility], contraceptive 120, [id number], devicePostpartum [facility] Follow-Up, [place], tel: Routine [phone] , [place]. tel: [phone] Associates Andrew Obstruction of Dec-2 Kassandra In Womens bile duct 0-201 Julia. Dede CHE, 6 700 PO Box Medical 1522, [place] Dr Manda, [facility] CAT[place], 120, [id number], [place], [place], tel:[phone] , [place]. tel: [phone] Associates Andrew Chronic Dec-0 Kassandra In Womens maxillary 2-201 Julia. Health [place], sinusitis 6 700 PO Box Medical 1522, [place] Dr Manda, [facility] CATY, 120, [id number], [place], tel: [phone] , [place]. tel: [phone] Associates Andrew Chronic Nov-2 Kassandra In Womens maxillary 2-201 Julia. Dede CHE, sinusitis 6 700 PO Box Medical 1522, [place] Dr Manda, [facility] CAT[place], 120, [id number], [place], [place], tel:[phone] , [place]. tel: [phone] Associates Andrew Chronic Nov-1 Kassandra Referring In Womens maxillary 6-201 Julia. Provider: Dede CHE, sinusitis 6 700 Julia PO Box Medical Kassandra L, 1522, [place] [address], [facility] [place], 120, Miky 120, [id number], [place], [place], [place], [id number]. tel:[phone] tel: , [place]. 682909 tel: [phone] Dennis [place] Oct-1 Kassandra Referring In Womens 3-201 Julia. Provider: Dede CHE, 6 700 Julia PO Box Medical Kassandra L, 1522, [place] [address], [facility] [place], 120, Miky 120, [id number], [place], [place], [place], [id number]. tel:[phone] tel: , [place]. 901996 tel: [phone] Associates Andrew Rash Sep-1 Kassandra In Womens 9-201 Jluia. Health [place], 6 700 [facility] 1522, [place] [address] Manda, [facility] [place], 120, [id number], [facility] [place], tel:[phone] , [place]. tel: [phone] Associates Andrew Gonsalez Aug-1 Kassandra In Womens 8-201 Julia. Dede CHE, 6 700 [facility] 1522, [place] [address] Manda, [facility] [place], 120, [id number], [place], [place], tel:[phone] , [place]. tel: [phone] Associates Andrew Vaginal Dec-2 Alicea Referring In Womens Discharge or 3-201 Giselle. Provider: Dede CHE, Alayna johnson, 5 700 Brigida PO Box unspecified Medical Holdidania S, 1522, [place] [address], [facility] [place], 120, Miky 120, [id number], [place], [place], [place], [id number]. tel:[phone] tel: , [place]. 778956 tel: [phone] Dennis [place] Oct-0 Ceci Referring In Womens 9-201 Brigida. Provider: Dede CHE, 2 700 [facility], 1522, [address] Manda, [facility] [place], 120, Drive [id number], [place], [facility], CATY, [place], [place], tel: [phone]. [phone] , [place]. tel: tel: [phone] Family History Family Member Diagnosis Age At [...] [employer] - Medicaid [place] [id number] BC Out Of State [id number] [employer] [place] [employer] - Medicaid MC [id number] [place] - Medicaid MC [id number] [employer] [place] [employer] - Medicaid MC [id number] [employer] [place] [employer] - Medicaid MC [id number] Social History Type Description Quantity Date Captured Alcohol Use Details No Caffeine Use Details Unknown Tobacco Use Status Unknown Smoking Status Never smoker Vital Signs Date / Height Weight BMI Pulse Blood Temperature Respiratory Body Head BMI Time: Rate Pressure Rate Surface Circumference percentile Area 207.00 36.6 2018 lbs 6 mm[Hg] 3:21 kg/m PM eter (2) Chief Complaint And [...] Ordered: Referrals: Otolaryngology. Mian Smith MD. Location: [place]. Consult Referral Ordered: ordered German Maurer -Dermatology (related to Rash) Referral Referred To: ordered German Maurer [address] [place], [place] Ordered: Referrals: Dermatology. German Maurer. Evaluate and treat Appointment Taylor Melo BOOKED Appointment Taylor Melo BOOKED Future Order: Lab Order Pap Smear With HPV Reflex If Ordered ASCUS ([id number]), Collected on: Future Order: Radiology Order Nuchal Translucency ([id number]) Ordered Date Type Problem Goal Intervention Status [...]
--- OUTSIDE RECORDS SUMMARY | 2017-10-12 05:39 | External Medical Summary | Continuity of Care Document ---
:1995 Author Organization [facility] [employer] Address [address] [place], [place] [address] Phone Care Team Providers Name Role Phone [...] [place] Early ob Encntr for suprvsn Nov-2 Alicea Referring In Womens (chief of fontana 2-201 Giselle. Provider: Dede CHE, complaint) , unsp, 7 700 Giselle PO Box unsp trimester Medical Nixon J, 1522, Center [address] [place] [address] Dr Manda, [facility] [place], 120, Miky 120, [id number], [place], [place], [place], [id number]. tel:[phone] tel:[phone] , [place]. 331261 tel: [phone] Dennis [place] Other specified Nov-2 Alicea In Womens health status 0-201 Giselle. Dede CHE, 7 700 PO Box Medical 1522, [address], [facility] [place], 120, [id number], [place], tel:[phone] , [place]. tel: [phone] Dennis [place] Encounter for Sep-2 Sobbing In Womens initial 8-201 [place]. Health [place], prescription of 7 700 PO Box contraceptive Medical 1522, pillsEncounter for [place] Manda, routine checking Drive, [place], of intrauterine Suite , contracep dev 120, [place], tel: [place], 114, [place]. tel: [phone] Dennis [place] Urinary tract Mar-2 Alicea In Womens infection, site 1-201 Giselle. Health [place], not 7 700 PO Box specifiedAnesthesi Medical 1522, a of skin [place] Dr Manda, [facility] [place], 120, [id number], [place], [place], tel:[phone] , [place]. tel: [phone] Dennis [place] Urinary tract Mar-0 Alicea In Womens infection, site 9-201 Giselle. Health [place], not 7 700 PO Box specifiedVaginal Medical 1522, Discharge or [place] Manda, LesionEncsantiago Girard, [facility], for routine 120, , checking of [place], intrauterine [place], tel:+ contracep [phone] [facility] , . test, tel: result negative [phone] Associates Andrew Encntr screen for Deshawn-2 Kassandra In Womens infections w sexl 7-201 Julia. Health [place], mode of 7 700 PO Box [facility] Medical 1522, for insertion of [place] j[address], [facility], contraceptive 120, [id number], devicePostpartum [facility] Follow-Up, Routine [place], tel:[phone] , [place]. tel: [phone] Associates Andrew Obstruction of Dec-2 Kassandra In Womens bile duct 0-201 Julia. Health [place], 6 700 PO [facility] 1522, [place] Dr Manda, [facility] [place], 120, [id number], [facility] [place], tel:[phone] , [place]. tel: [phone] Associates Andrew Chronic maxillary Dec-0 Kassandra In Womens sinusitis 2-201 Julia. Health [place], 6 700 PO [facility] 1522, [place] Dr Manda, [facility] [place], 120, [id number], [place], [place], tel:[phone] , [place]. tel: [phone] Associates Andrew Chronic maxillary Nov-2 Kassandra In Womens sinusitis 2-201 Julia. Health [place], 6 700 PO [facility] 1522, [place] Dr Manda, [facility] [place], 120, [id number], [place], tel:[phone] , [place]. tel: [phone] Associates Andrew Chronic maxillary Nov-1 Kassandra Referring In Womens sinusitis 6-201 Julia. Provider: Health [place], 6 700 Julia PO Box Medical Kassandra L, 1522, [place] [address], [facility] [place], 120, Miky 120, [id number], [place], [place], [place], [id number]. tel:[phone] tel: , [place]. 79[address] tel: [phone] Associates Andrew Oct-1 Kassandra Referring In Womens 3-201 Julia. Provider: Dede CHE, 6 700 Julia [facility] Medical Kassandra L, 1522, [address] Manda, [facility] [place], 120, Miky 120, [id number], [place], [place], [place], [id number]. tel:[phone] tel: , [place]. 692901 tel: [phone] Associates Andrew Gonsalez Sep-1 Kassandra In Womens 9-201 Julia. eDde CHE, 6 700 [facility] 1522, [place] Dr Manda, [facility] [place], 120, [id number], [place], [place], tel:[phone] , [place]. tel: [phone] Associates Andrew Gonsalez Aug-1 Kassandra In Womens 8-201 Julia. Dede CHE, 6 700 [facility] 1522, [place] Dr Manda, [facility] [place], 120, [id number], [place], [place], tel:[phone] , [place]. tel: [phone] Associates Andrew Vaginal Discharge Dec-2 Alicea Referring In Womens or LesionDry 3-201 Giselle. Provider: Dede CHE, mouth, unspecified 5 700 Brigida [facility] Medical Ceci S, 1522, [place] [address], [facility] [place], 120, Miky 120, [id number], [place], [place], [place], [id number]. tel:[phone] tel: , [place]. 765610 tel: [phone] Dennis [place] Oct-0 Ceci Referring In Womens 9-201 Brgiida. Provider: Dede CHE, 2 700 Pediatrics [facility], 1522, [address] Manda, [facility] [place], 120, Drive [id number], [place], [facility], CATY, [place], [place], tel: [phone]. [phone] , [place]. tel: tel: [phone] Family History Family Member Diagnosis Age At [...] [employer] - Medicaid MC [id number] BCBS Out Of State [id number] [employer] [place] - Medicaid MC [id number] [employer] [place] [employer] - Medicaid MC [id number] [employer] [place] [employer] - Medicaid MC [id number] [employer] [place] [employer] - Medicaid MC [id number] Social History Type Description Quantity Date Captured Alcohol Use Details No Caffeine Use Details Unknown Tobacco Use Status Never smoked tobacco Smoking Status Never smoker Non-Smoking Tobacco Use : No Details Available : No Details Available Details Vital Signs Date / Height Weight BMI Pulse Blood Temperature Respiratory Body Head BMI Time: Rate Pressure Rate Surface Circumference percentile Area 212.20 86 138/83 lbs /min mm[Hg] 10:41 AM Chief Complaint And Reason For Visit Most recent encounter only, dated '03/01/2017 10:30'. Early ob (chief complaint). Description: 21 yr wf gr 2 p 2 presents today as an early ob with unsuredating. HPI: Quant on 02/27/ - 34,320. Reported [...] Ordered: Referrals: Otolaryngology. Mian Smith MD. Location: [place]. Consult Referral Ordered: ordered German Maurer -Dermatology (related to Rash) Referral Referred To: ordered German Maurer [address] [place], [place] Ordered: Referrals: Dermatology. German Maurre. Evaluate and treat Appointment Taylor Melo BOOKED [...]
--- OUTSIDE RECORDS SUMMARY | 2017-10-12 05:39 | External Medical Summary | Continuity of Care Document ---
:1995 Author Organization [facility] Address [address] [place], [place] [id number] Phone Care Team Providers Name Role Phone [...] first trimester 10 weeks gestation of - Encounter for suprvsn [...] For Visit Members Dennis [place] Encounter for Jul-1 Kassandra Referring In Womens suprvsn of - Julia. Provider: Dede CHE, normal 8 700 Julia PO Box , third Medical Kassandra L, 1522, [id number] [place], [place] [address]ta, weeks gestation , [facility] [place], of 120, Miky 120, [id number], [place], [place], [place], [id number]. tel:[phone] tel:[phone] , [place]. 589261 tel: [phone] Dennis [place] Gestational Apr-1 Kassandra In Womens Ultrasound diabetes 9- Julia. Health CHINEDU, mellitus in 8 700 PO Box , diet Medical 1522, controlledPlacen [place] Manda, ta previa , [facility] CATY, specified as w/o 120, [id number], hemorrhage, [place], [facility] [place], tel: [phone] weeks gestation , [place]. of tel: [phone] Dennis [place] Apr-0 Kassandra In Womens 4-201 Julia. Health CHINEDU, 8 700 PO Box Medical 1522, [address] Manda, Miky CATY, 120, [id number], [place], [place], tel:[phone] , [place]. tel: [phone] Dennis [place] Mar-2 Kassandra In Womens 5-201 Julia. Health CHINEDU, 8 700 PO Box Medical 1522, [place] [address] [place], 120, [id number], [place], [place], tel:[phone] , [place]. tel:[phone] Dennis [place] Mar-2 Kassandra In Womens 3-201 Julia. Health PA, 8 700 PO Box Medical 1522, [place] Manda, Miky Girard [place], 120, [id number], [place], [place], tel:[phone] , [place]. tel: [phone] Dennis [place] Supervision of Mar-2 Kassandra In Womens other high risk 2-201 Julia. Health PA, pregnancies, 8 700 PO Box second Medical 1522, trimesterPlacent [facility], a previa Miky Girard, specified as w/o 120, [id number], hemor, second [place], [place] [id number] [place], tel:+[phone] weeks gestation [phone] of , [place]. tel: [phone] Dennis [place] Supervision of Feb-2 Kassandra In Womens other high risk 1-201 Julia. Health PA, pregnancies, 8 700 PO Box second Medical 1522, trimesterPlacent [facility], a previa Miky Girard, specified as w/o 120, [id number], hemor, second [place], [place] [id number] [place], tel:+[phone] weeks gestation [phone] of , [place]. tel: [phone] Dennis [place] Supervision of Feb-2 Kassandra In Womens Ultrasound other high risk 1-201 Julia. Health PA, pregnancies, 8 700 PO Box second Medical 1522, trimesterPlacent [facility], a previa Miky Girard, specified as w/o 120, [id number], hemor, second [place], [place] [id number] [place], tel:+[phone] weeks gestation [phone] of , [place]. tel: [phone] Dennis [place] Supervision of Deshawn-3 Kassandra In Womens other high risk 1-201 Julia. Health PA, pregnancies, 8 700 PO Box second Medical 1522, trimesterMatern [facility], care for oth or Miky Girard, susp poor fetl 120, [id number], grth, 2nd tri, [facility] unspPlacenta [place], tel: previa specified as w/o hemor, , [place]. second tel: [id number] weeks gestation of Associates Andrew Encounter for Deshawn-0 Kassandra In Womens suprvsn of 4-201 Julia. Health CHINEDU, normal 8 700 PO Box , first Medical 1522, [id number] [facility], weeks gestation Miky Girard, of 120, , [facility] [place], tel:[phone] , [place]. tel:[phone] Dennis [place] Encounter for Deshawn-0 Kassandra In Womens Ultrasound suprvsn of 4-201 Julia. Health CHINEDU, normal 8 700 PO Box , first Medical 1522, [id number] [facility], weeks gestation Miky Girard, of 120, , [facility] [place], tel:[phone] , [place]. tel: [phone] Dennis [place] Dec-1 Kassandra In Womens 8-201 Julia. Health CHINEDU, 7 700 PO Box Medical 1522, [address] Manda, Miky BYRNE, 120, , [facility] [place], tel:[phone] , [place]. tel:[phone] Dennis [place] Oth Dec-1 Kassandra In Womens noninflammatory 3-201 Julia. Health CHINEDU, disorders of 7 700 PO Box vulva and Medical 1522, perineumPap [facility], Smear Screening, Miky Girard, CervixEncounter 120, , for suprvsn of [place], normal [place], tel: , first [phone] [id number] , [place]. weeks gestation tel: of [phone] Dennis [place] Encntr for Nov-2 Mcgraw Referring In Womens suprvsn of 2-201 Anne. Provider: Health CHINEDU, normal 7 700 Giselle PO Box , unsp, Medical Nixon J, 1522, unsp trimester Center [address] [facility] [address] Manda, [facility] [place], 120, Miky 120, [id number], [place], [place], [place], [id number]. tel:[phone] tel: , [place]. 306968 tel: [phone] Associates Andrew Other specified Nov-2 Alicea In Womens health status 0-201 Giselle. Health PA, 7 700 PO Box Medical 1522, [address] Manda, [facility] [place], 120, [id number], [place], [place], tel:[phone] , [place]. tel: [phone] Associates Andrew Encounter for Sep-2 Sobbing In Womens initial 8-201 Higinio. Health PA, prescription of 7 700 PO Box contraceptive Medical 1522, pillsEncounter [facility], for routine Drive, [place], checking of Suite , intrauterine 120, [place] contracep dev [place], [place]: [place], [phone], [place]. tel: [phone] Dennis [place] Urinary tract Mar-2 Alicea In Womens infection, site 1-201 [facility]. Health PA, not 7 700 PO Box specifiedAnesthe Medical 1522, lam of skin [address] Manda, [facility] [place], 120, [id number], [place], [place], tel:[phone] , [place]. tel: [phone] Dennis [place] Urinary tract Mar-0 Alicea In Womens infection, site 9-201 [facility]. Health PA, not 7 700 PO Box specifiedVaginal Medical 1522, [facility] or [facility], LesionEncount , [facility] CATY, for routine 120, , checking of [place], intrauterine [place], tel: contracep [phone] [facility] for , [place]. test, tel: result negative [phone] Dennis [place] Encntr screen Deshawn-2 Kassandra In Womens for infections w 7-201 Julia. Health PA, sexl mode of 7 700 PO Box transmissEncount Medical 1522, er for insertion [facility], of intrauterine Miky Girard, contraceptive 120, [id number], devicePostpartum [place], Follow-Up, [place], tel:[phone] Routine [id number] , [place]. tel: [phone] Associates Andrew Obstruction of Dec-2 Kassandra In Womens bile duct 0-201 Julia. Health PA, 6 700 PO [place] Medical 1522, [address] Manda, Miky [place], 120, [id number], [place], [place], tel:[phone] , [place]. tel: [phone] Associates Andrew Chronic Dec-0 Kassandra In Womens maxillary 2-201 Julia. Health CHINEDU, sinusitis 6 700 [facility] Medical 1522, [address] Manda, [facility] [place], 120, [id number], [place], [facility], tel:[phone] , [place]. tel: [phone] Associates Andrew Chronic Nov-2 Kassandra In Womens maxillary 2-201 Julia. Health CHINEDU, sinusitis 6 700 [facility] 1522, [address] Manda, [facility] [place], 120, [id number], [place], [place], tel:[phone] , [place]. tel: [phone] Associates Andrew Chronic Nov-1 Kassandra Referring In Womens maxillary 6-201 Julia. Provider: Dede CHE, sinusitis 6 700 Julia [facility] Medical Kassandra L, 1522, [place] [address], [facility] [place], 120, Miky 120, [id number], [place], [place], [place], [id number]. tel:[phone] tel: , [place]. 304050 tel: [phone] Associates Andrew Oct-1 Kassandra Referring In Womens 3-201 Julia. Provider: Dede CHE, 6 700 Julia Box Medical Kassandra L, 1522, [address] Manda, [facility] [place], 120, Miky 120, [id number], [place], [place], [place], [id number]. tel:[phone] tel:[phone] , [place]. 866286 tel: [phone] Associates [place] Rash Sep-1 Kassandra In Womens 9-201 Julia. Dede CHE, 6 700 PO Box Medical 1522, [address] Manda, [facility] [place], 120, [id number], [facility] [place], tel:+ [phone] , [place]. tel: [phone] Associates Andrew Gonsalez Aug-1 Kassandra In Womens 8-201 Julia. Dede CHE, 6 700 PO Box Medical 1522, [address] Manda, [facility] [place], 120, [id number], [place], [place], tel:+ [phone] , [place]. tel: [phone] Associates Andrew Vaginal Dec-2 Alicea Referring In Womens Discharge or 3201 Giselle. Provider: Dede CHE, ShwethaDrbrandyn johnson, 5 700 Brigida PO Box unspecified Medical [facility] S, 1522, [address] Manda, [facility] [place], 120, Miky 120, [id number], [place], [place], [facility], [id number]. tel:+ [phone] tel:[phone] , [place]. [address] tel: [phone] Dennis [place] Jan-0 Holdidania Referring In Womens 9-201 Brigida. Provider: Dede CHE, 2 700 Pediatrics PO [facility], 1522, [address] Manda, [facility] [place], 120, Drive [id number], [place] [address], [place], [place], [place], tel:+ [phone] [phone]. [phone] , [place]. tel:+ tel: [phone] Family History Family Member Diagnosis Age At Onset No Family history of Family history not known. Patient is adopted. Mother Cardiovascular Disease Immunizations Vaccine Date Status Comments [facility] completed Source: New Immunization Record Influenza, injectable, completed Source: New Immunization Record quadrivalent, preservative free, 3 yrs or older Tdap completed Source: New Immunization Record [facility] completed Source: New Immunization Record Influenza, injectable, completed Source: New Immunization Record quadrivalent, preservative free, 3 yrs or older Payers Payer name Insurance type Covered libertarian ID Authorization(s) [employer] [place] - Medicaid [place] [id number] BCBS Out Of State [id number] [employer] [place] [employer] - Medicaid [place] [id number] [place] [place] Medicaid [place] [id number] [employer] [place] - Medicaid [place] [id number] [employer] [place] [employer] - Medicaid [place] [id number] [employer] [place] [employer] - Medicaid MC [id number] Social History Type Description Quantity Date Captured [...] Ordered: Referrals: Otolaryngology. Mian Smith MD. Location: [place]. Consult Referral Ordered: ordered German Maurer -Dermatology (related to Rash) Referral Referred To: ordered German Maurer [address] [place], [place] Ordered: Referrals: Dermatology. German Maurer. Evaluate and treat Appointment Taylor Melo BOOKED Future Order: Lab Order Pap Smear With HPV Reflex If Ordered ASCUS ([id number]), Collected on: Future Order: Radiology Order Complete OB Ultrasound > 14 Ordered Weeks ([id number]) Future Order: Radiology Order Ultrasound OB Follow-up ([id number]) Ordered Future Order: Radiology Order Nuchal Translucency ([id number]) Ordered Date Type Problem Goal Intervention Status [...]
--- OUTSIDE RECORDS SUMMARY | 2017-10-12 05:40 | External Medical Summary | Continuity of Care Document ---
:1995 Author Organization [facility] Address [address] [place], [place] [id number] Phone Care Team Providers Name Role Phone Snehal Corbin MD Unavailable Unavailable Allergies, Adverse Reactions, Alerts Substance Reaction Severity Status cefuroxime Unknown Active Medications Medication Instructions Dosage Effective Status Comments Dates (start - stop) Rhophylac 1,500 - Active unit (300 mcg)/2 mL injection syringe butalbital-acetam take 1 tablet by Not Available - Active inophen-caffeine oral route every 50 mg-325 mg-40 4 hours as needed mg tablet not to exceed 6 tablets per 24hrs Lancets, Super use by Not Available - Active for OneTouch Thin Intradermal route UltraMini 4 times every day Meter-- ICD 10: O24.410 Blood Glucose check by Not Available - Active for OneTouch Monitoring kit Misc.(Non-Drug; UltraMini Combo Route) Meter-- ICD route once test 10: O24.410 blood sugar QID, fasting and 2 hours after each meal Blood Glucose test 1 Drop by Not Available - Active for OneTouch Test strips Intradermal route UltraMini 4 times every day Meter-- ICD fasting and 10: O24.410 postprandial acyclovir 400 mg take 1 [...] mg day brand covered tablet by XIX Singulair 10 mg take 1 tablet by 10 MG - Active tablet oral route every day in the evening azithromycin 250 take 2 tablet by - No Longer mg tablet oral route every Active day Problems Condition Effective Dates (start - stop) [...] For Visit Members Dennis [place] Encounter for Apr-1 Kassandra Referring In Womens suprvsn of 9-201 Julia. Provider: Dede CHE, normal 8 700 Julia PO Box , third Medical Kassandra L, 1522, [email or web address] [place] [address], weeks gestation , [facility] [place], of 120, Miky 120, [id number], [place], [place], [place], [id number]. tel:[phone] tel:[phone] , [place]. 556327 tel: [phone] Dennis [place] Gestational Apr-1 Kassandra In Womens Ultrasound diabetes 9-201 Julia. Health CHINEUD, mellitus in 8 700 PO Box , [facility] Medical 1522, controlledPlacen [facility], ta previa Miky Girard, specified as w/o 120, [id number], hemorrhage, [place], [facility] [place], tel: [id number] [phone] weeks gestation , [place]. of tel: [phone] Dennis [place] Apr-1 Kassandra In Womens 3-201 Julia. Health CHINEDU, 8 700 PO Box Medical 1522, Serena Telida, Miky Girard, 120, [id number], [place], [place], tel:[phone] , [place]. tel: [phone] Dennis [place] Mar-2 Kassandra In Womens 5-201 Julia. Health PA, 8 700 PO Box Medical 1522, [address] [place], 120, [id number], [place], [place], tel:+ [phone] , [place]. tel: [phone] Dennis [place] Mar-2 Kassandra In Womens 3-201 Julia. Health PA, 8 700 PO Box Medical 1522, [address] [place], 120, [id number], [place], [place], tel:[phone] , [place]. tel: [phone] Dennis [place] Supervision of Mar-2 Kassandra In Womens other high risk 2-201 Julia. Health PA, pregnancies, 8 700 PO Box second Medical 1522, trimesterPlacent [facility], a previa Miky Girard, specified as w/o 120, [id number], hemhal, catherine [place], [place] [id number] [place], tel:+[phone] weeks gestation [phone] of , [place]. tel: [phone] Dennis [place] Supervision of Feb-2 Kassandra In Womens other high risk 1-201 Julia. Health PA, pregnancies, 8 700 PO Box second Medical 1522, trimesterPlacent [facility], rony prevMiky russo Dr, specified as w/o 120, [id number], hemor, second [place], [place] [id number] [place], tel:[phone] weeks gestation [id number] of , [place]. tel: [phone] Dennis [place] Supervision of Feb-2 Kassandra In Womens Ultrasound other high risk 1-201 Julia. Health PA, pregnancies, 8 700 PO Box second Medical 1522, trimesterPlacent Serena Telida, rony previa Miky Girard, specified as w/o 120, [id number], hemor second [place], [place] [id number] [place], tel:[phone] weeks gestation [phone] of , [place]. tel: [phone] Dennis [place] Supervision of Deshawn-3 Kassandra In Womens other high risk 1-201 Julia. Health PA, pregnancies, 8 700 PO Box second Medical 1522, trimesterMatern [facility], care for oth or Miky Girard, susp poor fetl 120, , grth, 2nd tri, [place], unspPlacenta [place], tel:+ previa specified as w/o hemor, , [place]. second tel: [id number] [phone] weeks gestation of Associates Andrew Encounter for Deshawn-0 Kassandra In Womens suprvsn of 4-201 Julia. Health CHINEDU, normal 8 700 PO Box , first Medical 1522, [id number] [facility], weeks gestation Miky Girard, of 120, , [place], [place], tel:901 , [place]. tel:[phone] Dennis [place] Encounter for Deshawn-0 Kassandra In Womens Ultrasound suprvsn of 4-201 Julia. Dede CHE, normal 8 700 PO Box , first Medical 1522, [id number] [facility], weeks gestation Miky Girard, of 120, , [facility] [place], tel:+[phone] , [place]. tel: [phone] Dennis [place] Dec-1 Kassandra In Womens 8-201 Julia. Health CHINEDU, 7 700 PO Box Medical 1522, [facility], Miky Girard, 120, , [facility] [place], tel:+[phone] , [place]. tel: [phone] Dennis [place] Oth Dec-1 Kassandra In Womens noninflammatory 3-201 Julia. Health CHINEDU, disorders of 7 700 PO Box vulva and Medical 1522, perineumPap [facility], Smear Screening, Miky Girard, CervixEncounter 120, , for suprvsn of [place], normal [place], tel:+ , first [phone] [id number] , [place]. weeks gestation tel: of [phone] Dennis [place] Encntr for Nov-2 Mcgraw Referring In Womens suprvsn of 2-201 Anne. Provider: Health CHINEDU, normal 7 700 Giselle PO Box , unsp, Medical Alicea J, 1522, unsp trimester Center 700 [facility] Dr Manda, [facility] [place], 120, Miky 120, [id number], [place], [place], [place], [id number]. tel:[phone] tel:[phone] , [place]. 549816 tel: [phone] Associates Andrew Other specified Nov-2 Alicea In Womens health status 0-201 Giselle. Health PA, 7 700 PO Box Medical 1522, [address] Manda, Miky [place], 120, [id number], [place], [place], tel:[phone] , [place]. tel: [phone] Associates Andrew Encounter for Sep-2 Sobbing In Womens initial 8-201 Higinio. Health PA, prescription of 7 700 PO Box contraceptive Medical 1522, pillsEncounter [facility], for routine Drive, [place], checking of Suite , intrauterine 120, [place] contracep dev [place], [place]: [place], [address], [place]. tel: [phone] Associates Andrew Urinary tract Mar-2 Alicea In Womens infection, site 1-201 Giselle. Health PA, not 7 700 PO Box specifiedAnesthe Medical 1522, lam of skin [address]rena Dr Manda, Miky BYRNE, 120, [id number], [place], [place], tel:[phone] , [place]. tel: [phone] Dennis [place] Urinary tract Mar-0 Alicea In Womens infection, site 9-201 Giselle. Health PA, not 7 700 PO Box specifiedVaginal Medical 1522, Discharge or [facility]ion[facility] Hospitalsantiago Girard, [facility], for routine 120, , checking of [place], intrauterine [place], tel: contracep [phone] [facility] for , [place]. test, tel: result negative [phone] Associates Andrew Encntr screen Deshawn-2 Kassandra In Womens for infections w 7-201 Julia. Health PA, sexl mode of 7 700 PO Box transmissEncount Medical 1522, er for insertion [facility], of intrauterine , [facility], contraceptive 120, [id number], devicePostpartum [place], Follow-Up, [place], tel:+ Routine [phone] , [place]. tel: [phone] Associates Andrew Obstruction of Dec-2 Kassandra In Womens bile duct 0-201 Julia. Health CHINEDU, 6 700 PO Box Medical 1522, [address] Manda, [facility] [place], 120, [id number], [place], [place], tel:[phone] , [place]. tel: [phone] Associates Andrew Chronic Dec-0 Kassandra In Womens maxillary 2-201 Julia. Health CHINEDU, sinusitis 6 700 PO Box Medical 1522, [address] Manda, [facility] [place], 120, [id number], [place], [place], tel:[phone] , [place]. tel: [phone] Associates Andrew Chronic Nov-2 Kassandra In Womens maxillary 2-201 Julia. Health CHINEDU, sinusitis 6 700 PO Box Medical 1522, [address] Dr Manda, [facility] [place], 120, [id number], [place], [place], tel:[phone] , [place]. tel: [phone] Associates Andrew Chronic Nov-1 Kassandra Referring In Womens maxillary 6-201 Julia. Provider: Dede CHE, sinusitis 6 700 Julia PO Box Medical Kassandra L, 1522, [place] [address], [facility] [place], 120, Miky 120, [id number], [place], [place], [place], [id number]. tel:[phone] tel:+ , [place]. 886401 tel: [phone] Associates Andrew Oct-1 Kassandra Referring In Womens 3-201 Julia. Provider: Dede CHE, 6 700 Julia PO Box Medical Kassandra L, 1522, [place] [address], [facility] [place], 120, Miky 120, [id number], [place], [place], [place], [id number]. tel:[phone] tel: , [place]. 716018 tel: [phone] Associates Andrew Rash Sep-1 Kassandra In Womens 9-201 Julia. Health CHINEDU, 6 700 PO Box Medical 1522, [address] Manda, [facility] [place], 120, [id number], [place], [place], tel: [phone] , [place]. tel: [phone] Associates Andrew Rash Aug-1 Kassandra In Womens 8-201 Julia. Health CHINEDU, 6 700 PO Box Medical 1522, [address] Manda, [facility] [place], 120, [id number], [place], [place], tel: [phone] , [place]. tel: [phone] Associates Andrew Vaginal Dec-2 Alicea Referring In Womens Discharge or 3201 Giselle. Provider: Dede CHE, LesionDry mouth, 5 700 Brigida PO [place] unspecified Medical Ceci S, 1522, [address] Manda, [facility] [place], 120, Miky 120, [id number], [place], [place], [facility], [id number]. tel: [phone] tel:[phone] , [place]. 090477 tel: [phone] Dennis [place] Jan-0 Ceci Referring In Womens 9-201 Brigida. Provider: Dede CHE, 2 700 Pediatrics PO [facility], 1522, [address] Manda, [facility] [place], 120, Drive [id number], [facility], CATY, [place], tel: [phone] 22092. [phone] , [place]. tel: tel: [phone] Family History Family Member Diagnosis Age At Onset No Family history of Family history not known. Patient is adopted. Mother Cardiovascular Disease Immunizations Vaccine Date Status Comments [facility] completed Source: New Immunization Record Influenza, injectable, completed Source: New Immunization Record quadrivalent, preservative free, 3 yrs or older Tdap completed Source: New Immunization Record [facility] completed Source: New Immunization Record Influenza, injectable, completed Source: New Immunization Record quadrivalent, preservative free, 3 yrs or older Payers Payer name Insurance type Covered libertarian ID Authorization(s) [employer] [place] - Medicaid MC [id number] BCBS Out Of State [id number] [employer] [place] [employer] - Medicaid [place] [id number] [employer] [place] - Medicaid [place] [id number] [employer] [place] - Medicaid [place] [id number] [employer] [place] [employer] - Medicaid [place] [id number] [employer] [place] [employer] - Medicaid [place] [id number] Social History Type Description Quantity Date Captured [...] Ordered: Referrals: Otolaryngology. Mian Smith MD. Location: [place]. Consult Referral Ordered: ordered German Maurer -Dermatology (related to Rash) Referral Referred To: ordered German Maurer [address] [place], [place] Ordered: Referrals: Dermatology. German Maurer. Evaluate and treat Future Order: Lab Order Pap Smear With HPV Reflex If Ordered ASCUS ([id number]), Collected on: Future Order: Radiology Order Complete OB Ultrasound > 14 Ordered Weeks ([id number]) Future Order: Radiology Order Ultrasound OB Follow-up ([id number]) Ordered Future Order: Radiology Order Nuchal Translucency ([id number]) Ordered Date Type Problem Goal Intervention Status [...]
--- OUTSIDE RECORDS SUMMARY | 2017-10-12 05:40 | External Medical Summary | Continuity of Care Document ---
:1995 Author Organization [facility] Address [address] [place], [place] [id number] Phone Care Team Providers Name Role Phone [...] for routine checking of intrauterine contracep dev Encntr for suprvsn of normal , unsp, unsp trimester Vulvar Lesion - Active Active Procedures Procedure Date Unknown Results Test Name Date and Time Measure Units Reference Range Abnormal Flag Comments Unknown Advance Directives Directive Yes / No Effective Date File Name Unknown Encounters Encounter Practice Location Reason(s) Diagnoses Date Provider Care Team Description For Visit Members Dennis [place] Encntr for suprvsn Nov-2 Mcgraw Referring In Womens of normal 2-201 Anne. Provider: Health CHINEDU, , unsp, 7 700 Giselle PO Box unsp trimester Medical iNxon J, 1522, Center [facility] [address], [facility] [place], 120, Miky 120, [id number], [place], [place], [place], [id number]. tel:[phone] tel: , [place]. [address] tel: [phone] Associates [facility] Other specified Nov-2 Alicea In Womens health status 0-201 Giselle. Health CHINEDU, 7 700 PO Box Medical 15[address], [address] [address] Manda, [facility] [place], 120, [id number], [place], tel:[phone] , [place]. tel: [phone] Dennis [place] Nov-1 Kassandra In Womens 4-201 Julia. Dede CHE, 7 700 PO Box Medical 15[address], [address] [address] Manda, [facility] [place], 120, , [place], tel:[phone] , [place]. tel: [phone] Dennis [place] Encounter for Sep-2 Sobbing In Womens initial 8-201 Higinio. Health CHINEDU, prescription of 7 700 PO Box contraceptive Medical 1522, pillsEncounter for [place] Manda, routine checking [place], [place], of intrauterine Suite , contracep dev 120, [place], tel: [place], 114, [place]. tel: [phone] Dennis [place] Urinary tract Mar-2 Alicea In Womens infection, site 1-201 Giselle. Health PA, not 7 700 PO Box specifiedAnesthesi Medical 1522, a of skin [place] [address] Manda, [facility] [place], 120, [id number], [place], tel:[phone] , [place]. tel: [phone] Dennis [place] Urinary tract Mar-0 Alicea In Womens infection, site 9-201 Giselle. Health PA, not 7 700 PO Box specifiedVaginal Medical 1522, Discharge or [place] Manda LesionEncsantiago Girard, [facility], for routine 120, , checking of [facility] intrauterine [place], tel: contracep [phone] [facility] , . test, tel: result negative [phone] Associates [place] Encntr screen for Deshawn-2 Kassandra In Womens infections w sexl 7-201 Julia. Health PA, mode of 7 700 [facility], for insertion of [place] Manda intrauterine , [facility] CATY, contraceptive 120, , devicePostpartum [facility] Follow-Up, Routine [place], tel:[phone] , [place]. tel: [phone] [facility] Obstruction of Dec-2 Kassandra In Womens bile duct 0-201 Julia. Health CHINEDU, 6 700 [facility] [address]22, [address], [facility] [place], 120, , [facility] [place], tel:[phone] , [place]. tel: [phone] [facility] Chronic maxillary Dec-0 Kassandra In Womens sinusitis 2-201 Julia. Health CHINEDU, 6 700 [facility] 1522, [place] [address] Manda, [facility] [place], 120, , [facility] [place], tel:[phone] , [place]. tel: [phone] [facility] Chronic maxillary Nov-2 Kassandra In Womens sinusitis 2-201 Julia. Health CHINEDU, 6 700 [facility] 1522, [place] [address] Manda, [facility] [place], 120, [id number], [facility] [place], tel:[phone] , [place]. tel: [phone] [facility] [place] Chronic maxillary Nov-1 Kassandra Referring In Womens sinusitis 6-201 Julia. Provider: Health CHINEDU, 6 700 Julia PO Box Medical Kassandra L, 1522, [place] [address], [facility] [place], 120, Miky 120, , [place], [place], [place], [id number]. tel:+ tel: , [place]. 33[address] tel: [phone] [facility] Andrew Oct-1 Kassandra Referring In Womens 3-201 Julia. Provider: Dede CHE, 6 700 Julia [facility] Kassandra L, 1522, [place] [address] Manda, [facility] [place], 120, Miky 120, [id number], [place], [place], [place], [id number]. tel:[phone] tel: , [place]. [address] tel: [phone] [facility] Gonsalez Sep-1 Kassandra In Womens 9-201 Julia. Dede CHE, 6 700 [facility] 1522, [address] [address] Manda, [facility] [place], 120, [id number], [place], tel:[phone] , [place]. tel: [phone] [facility] Rash Aug-1 Kassandra In Womens 8-201 Julia. Dede CHE, 6 700 [facility] 1522, [place] [address] Manda, [facility] [place], 120, [id number], [place], [place], tel:[phone] , [place]. tel: [phone] [facility] Vaginal Discharge Dec-2 Alicea Referring In Womens or LesionDry 3-201 Giselle. Provider: Dede CHE, mouth, unspecified 5 700 Brigida [facility] Medical [facility] S, 1522, [address] Manda, [facility] [place], 120, Miky 120, [id number], [place], [place], [place], [id number]. tel:[phone] tel: , [place]. [address]90649 tel: [phone] Associates Andrew Oct-0 Holdeman Referring In Womens 9-201 Brigida. Provider: Dede CHE, 2 700 Pediatrics [facility], 1522, [address] Manda, [facility] [place], 120, Drive [id number], [place], [facility], CATY, [place], [place], tel:[phone]. , [place]. tel: tel: [phone] Family History Family Member Diagnosis Age At [...] [employer] [place] - Medicaid [place] [id number] BC Out Of State [id number] [employer] [place] [employer] - Medicaid [place] [id number] [employer] [place] - Medicaid [place] [id number] [employer] [place] [employer] - Medicaid [place] [id number] [employer] [place] [employer] - Medicaid [place] [id number] Social History Type Description Quantity Date Captured [...] Ordered: Referrals: Otolaryngology. Mian Smith MD. Location: [place]. Consult Referral Ordered: ordered German Maurer -Dermatology (related to Rash) Referral Referred To: ordered German Maurer [address] [place], [place] Ordered: Referrals: Dermatology. German Maurer. Evaluate [...]
--- OUTSIDE RECORDS SUMMARY | 2017-10-12 05:40 | External Medical Summary | Continuity of Care Document ---
:1995 Author Organization [facility] Address [address] [place], [place] [id number] Phone Care Team Providers Name Role Phone [...] Effective Dates (start - stop) Clinical Status Gestational diabetes mellitus in - , diet [...] For Visit Members Dennis [place] Encounter for Kassandra Referring In Womens suprvsn of 9- Julia. Provider: Dede CHE, normal 8 700 Julia PO Box , third Medical Kassandra L, 1522, [id number] [place] [address] [place], weeks gestation , [facility] Dr BYRNE, of 120, Miky 120, [id number], [place], [place], [place], [id number]. tel:[phone] tel:[phone] , [place]. 4850[address] tel: [phone] Dennis [place] Gestational Jul-1 Kassandra In Womens Ultrasound diabetes 9-201 Julia. Health CHINEDU, mellitus in 8 700 PO Box , [facility] Medical 1522, controlledPlacen [facility], ta previa Miky Girard, specified as w/o 120, [id number], hemorrhage, [place], third [place], tel: [phone] weeks gestation , [place]. of tel: [phone] Dennis [place] Mar-2 Kassandra In Womens 5-201 Julia. Health CHINEDU, 8 700 PO Box Medical 1522, [place] [address] [place], 120, [id number], [place], [place], tel:[phone] , [place]. tel: [phone] Dennis [place] Mar-2 Kassandra In Womens 3-201 Julia. Health PA, 8 700 PO Box Medical 1522, [facility], Miky Girard, 120, [id number], [place], [place], tel:[phone] , [place]. tel: [phone] Dennis [place] Supervision of Jun-2 Kassandra In Womens other high risk 2-201 Julia. Health PA, pregnancies, 8 700 PO Box second Medical 1522, trimesterPlacent [facility], a previa Miky Girard, specified as w/o 120, [id number], hemor, second [place], [place] [id number] [place], tel:+ weeks gestation [phone] 196790 of , [place]. tel: [phone] Dennis [place] Supervision of Feb-2 Kassandra In Womens other high risk 1-201 Julia. Health PA, pregnancies, 8 700 PO Box second Medical 1522, trimesterPlacent [facility], a previa Miky Girard, specified as w/o 120, [id number], hemor, second [place], [place] [id number] [place], tel:+ weeks gestation [phone] 196790 of , [place]. tel: [phone] Dennis [place] Supervision of Feb-2 Kassandra In Womens Ultrasound other high risk 1-201 Julia. Health PA, pregnancies, 8 700 PO Box second Medical 1522, trimesterPlacent [facility], a previa Miky Girard, specified as w/o 120, [id number], hemor, second [place], [place] [id number] [place], tel:+ weeks gestation [phone] 196790 of , [place]. tel: [phone] Dennis [place] Supervision of Apr-3 Kassandra In Womens other high risk 1-201 Julia. Health PA, pregnancies, 8 700 PO Box second Medical 1522, trimesterMatern [facility], care for oth or Miky Girard, susp poor fetl 120, [id number], grth, 2nd tri, [place], [place] unspPlacenta [place], tel:+ previa specified as w/o hemor, , [place]. second tel: [id number] [phone] weeks gestation of Associates Andrew Encounter for Deshawn-0 Kassandra In Womens suprvsn of 4-201 Julia. Health PA, normal 8 700 PO Box , first Medical 1522, [id number] [facility], weeks gestation Miky Girard, of 120, , [place], [place], tel:[phone] , [place]. tel: [phone] Dennis [place] Encounter for Deshawn-0 Kassandra In Womens Ultrasound suprvsn of 4-201 Julia. Health PA, normal 8 700 PO Box , first Medical 1522, [id number] [facility], weeks gestation Miky Girard, of 120, , [place], [place], tel:[phone] , [place]. tel: [phone] Dennis [place] Dec-1 Kassandra In Womens 8-201 Julia. Health CHINEDU, 7 700 PO Box Medical 1522, [place] Dr Manda, Miky BYRNE, 120, , [place], [place], tel:[phone] , [place]. tel: [phone] Dennis [place] Oth Dec-1 Kassandra In Womens noninflammatory 3-201 Julia. Health PA, disorders of 7 700 PO Box vulva and Medical 1522, perineumPap [facility], Smear Screening, Miky Girard, CervixEncounter 120, , for suprvsn of [place], [place] normal [place], tel: , first [phone] [id number] , [place]. weeks gestation tel: of [phone] Dennis [place] Encntr for Nov-2 Mcgraw Referring In Womens suprvsn of 2-201 Anne. Provider: Health PA, normal 7 700 Giselle PO Box , unsp, Medical Nixon Cortés, 1522, unsp trimester Center [address] [facility] [address] Manda, [facility] [place], 120, Miky 120, , [place], [place], [place], [id number]. tel: tel: , [place]. 553147 tel:[phone] Dennis [place] Other specified Nov-2 Alicea In Womens health status 0-201 Giselle. Health PA, 7 700 PO Box Medical 1522, [place] Dr Manda, Miky BYRNE, 120, [id number], [place], [place], tel:[phone] , [place]. tel: [phone] Dnenis [place] Encounter for Sep-2 Sobbing In Womens initial 8-201 Higinio. Health PA, prescription of 7 700 PO Box contraceptive Medical 1522, pillsEncounter [facility], for routine Drive, [place], checking of Suite , intrauterine 120, [place] contracep dev [place], tel:+ [phone], [place]. tel: [phone] Dennis [place] Urinary tract Mar-2 Alicea In Womens infection, site 1-201 Giselle. Health PA, not 7 700 PO Box specifiedAnesthe Medical 1522, lam of skin [place] [address] [place], 120, [id number], [place], tel:+ [phone] , [place]. tel: [phone] Dennis [place] Urinary tract Mar-0 Alicea In Womens infection, site 9-201 Giselle. Health PA, not 7 700 PO Box specifiedVaginal Medical 1522, Discharge or [place] [facility] , Miky BYRNE, for routine 120, , checking of [place], intrauterine [place], tel: contracep [phone] [facility]Mym[facility] for , [place]. test, tel: result negative [phone] Dennis [place] Encntr screen Deshawn-2 Kassandra In Womens for infections w 7-201 Julia. Health PA, sexl mode of 7 700 PO Box transmissEncount Medical 1522, er for insertion [facility], of intrauterine Miky Girard, contraceptive 120, [id number], devicePostpartum [place], [place] Follow-Up, [place], tel:+[phone] Routine [phone] , [place]. tel: [phone] Dennis [place] Obstruction of Dec-2 Kassandra In Womens bile duct 0-201 Julia. Health PA, 6 700 PO Box Medical 1522, [place] [address] Manda, [facility] [place], 120, [id number], [place], [place], tel:[phone] , [place]. tel: [phone] Associates Andrew Chronic Dec-0 Kassandra In Womens maxillary 2-201 Julia. Health PA, sinusitis 6 700 PO Box Medical 1522, [place] [address] Manda, Miky [place], 120, [id number], [place], [place], tel:[phone] , [place]. tel: [phone] Associates Andrew Chronic Nov-2 Kassandra In Womens maxillary 2-201 Julia. Health PA, sinusitis 6 700 [facility] Medical 1522, [place] [address] Manda, [facility] [place], 120, [id number], [place], [place], tel:[phone] , [place]. tel: [phone] Associates Andrew Chronic Nov-1 Kassandra Referring In Womens maxillary 6-201 Julia. Provider: Health CHINEDU, sinusitis 6 700 Julia PO Box Medical Kassandra L, 1522, [place] [address], [facility] [place], 120, Miky 120, [id number], [place], [place], [place], [id number]. tel:[phone] tel: , [place]. 674086 tel: [phone] Associates Andrew Oct-1 Kassandra Referring In Womens 3-201 Julia. Provider: Health CHINEDU, 6 700 Julia Box Medical Kassandra L, 1522, [place] [address], [facility] [place], 120, Miky 120, [id number], [place], [place], [place], [id number]. tel:[phone] tel: , [place]. 614095 tel: [phone] Associates Andrew Rash Sep-1 Kassandra In Womens 9-201 Julia. Health CHINEDU, 6 700 Box Medical 1522, [place] [address] Manda, [facility] [place], 120, [id number], [place], [place], tel:[phone] , [place]. tel:[phone] Associates Andrew Rash Nov- Kassandra In Womens 8-201 Julia. Health CHINEDU, 6 700 PO Box Medical 1522, [place] [address] Manda, Miky [place], 120, [id number], [place], [place], tel:+ [phone] , [place]. tel: [phone] Dennis [place] Vaginal Dec Alicea Referring In Womens Discharge or 3-201 Giselle. Provider: Dede CHE, Alayna mouth, 5 700 Brigida PO Box unspecified Medical [facility] S, 1522, Center [address] [place] [address] Dr Manda, [facility] Dr [place], 120, Miky 120, [id number], [place], [place], [place], [id number]. tel:+ [phone] tel:[phone] , [place]. 77[address] tel: [phone] Dennis [place] Jan-0 Migueleman Referring In Womens 9-201 Brigida. Provider: Dede CHE, 2 700 Pediatrics PO [facility], 1522, [address] Manda, [facility] [place], 120, Drive [id number], [place], [facility], [place], [place], [place], tel:+ [phone]. [phone] , [place]. tel: tel: [phone] Family History Family Member Diagnosis Age At Onset No Family history of Family history not known. Patient is adopted. Mother Cardiovascular Disease Immunizations Vaccine Date Status Comments [facility] completed Source: New Immunization Record Influenza, injectable, completed Source: New Immunization Record quadrivalent, preservative free, 3 yrs or older Tdap completed Source: New Immunization Record Rhophyla completed Source: New Immunization Record Influenza, injectable, completed Source: New Immunization Record quadrivalent, preservative free, 3 yrs or older Payers Payer name Insurance type Covered libertarian ID Authorization(s) [employer] [place] - Medicaid [place] [id number] BCBS Out Of State [id number] [employer] [place] [employer] - Medicaid [place] [id number] [place] Medicaid [place] [id number] [place] Medicaid [place] [id number] [employer] [place] [employer] - Medicaid [place] [id number] [employer] [place] [employer] - Medicaid [place] [id number] Social History Type Description Quantity Date Captured [...] Ordered: Referrals: Otolaryngology. Mian Smith MD. Location: [place]. Consult Referral Ordered: ordered German Maurer -Dermatology (related to Rash) Referral Referred To: ordered German Maurer [address] [place], [place] Ordered: Referrals: Dermatology. German Maurer. Evaluate and treat Future Order: Radiology Order Ultrasound OB Follow-up ([id number]) Ordered Future Order: Lab Order Pap Smear With HPV Reflex If Ordered ASCUS ([id number]), Collected on: Future Order: Radiology Order Complete OB Ultrasound > 14 Ordered Weeks ([id number]) Future Order: Radiology Order Nuchal Translucency ([id number]) Ordered Date Type Problem Goal Intervention Status [...]
--- OUTSIDE RECORDS SUMMARY | 2017-10-12 05:41 | External Medical Summary | Continuity of Care Document ---
:1995 Author Organization [facility] Address [address] [place], [place] [id number] Phone Care Team Providers Name Role Phone Snehal Corbin MD Unavailable Unavailable Allergies, Adverse Reactions, Alerts Substance Reaction Severity Status cefuroxime Unknown Active Medications Medication Instructions Dosage Effective Status Comments Dates (start - stop) butalbital-acet take 1 tablet by Not Available - Active aminophen-caffe oral route every ine 50 mg-325 4 hours as needed mg-40 [...] fasting and 10: O24.410 postprandial acyclovir 400 take 1 tablet by 400 MG - Active mg tablet ORAL route 3 times every day [...] oral route every day in the evening Fioricet 50 take 1 - 2 Not Available - No Longer mg-300 mg-40 mg capsule by oral Active capsule route every 4 hours as needed not to exceed 6 capsules per 24hrs Problems Condition Effective Dates (start - stop) Clinical Status Supervision of other high risk - pregnancies, second trimester Placenta previa specified as w/o - hemor, second trimester 24 weeks gestation of - Chronic maxillary sinusitis [...] Procedure Date OB Visit No Charge - PATIENT RELATIONS MANAGER Results Test Name Date and Time Measure Units Reference Range Abnormal Flag Comments Panel Description: Glucose [Mass/volume] in Serum or Plasma --1 hour post 50 g glucose PO Gestational Diabetes 179 mg/dL 65-139 H According to ADA, a glucose Screen 16:14:00 threshold of >139 mg/dL after 50-gramload identifies approximately 80% of women with gestationaldiabetes mellitus, while the sensitivity is further increased toapproximately 90% by a threshold of >129 mg/dL. Panel Description: Hemoglobin [Mass/volume] in Blood Hemoglobin 16:14:00 13.5 g/dL 11.1-15.9 Panel Description: Hematocrit [Volume Fraction] of Blood by Automated count Hematocrit 16:14:00 39.8 % 34.0-46.6 Advance Directives Directive Yes / No Effective Date File Name Unknown Encounters Encounter Practice Location Reason(s) Diagnoses Date Provider Care Team Description For Visit Members Dennis [place] Mar-2 Kassandra In Womens 5-201 Julia. Formerly [facility], [facility], 8 700 [address] Medical [address], [address], Ste [place], 120, , [facility] [place], tel:[phone] [address] , [place]. tel:[phone] Dennis [place] Mar-2 Kassandra In Womens 3-201 Julia. Formerly [facility], [facility], 8 700 PO Box Medical [address], [address], Ste [place], 120, , [facility] [place], tel:[phone] [address] , [place]. tel:[phone] Dennis [place] Supervision of Mar-2 Kassandra In Womens other high risk 2-201 Julia. Formerly [facility], [facility], pregnancies, 8 700 PO Box second Medical 1522, trimesterPlacent rony [address], Ste [place], specified as w/o 120, [id number], hemor, second [place], [place] [id number] [place], tel: weeks gestation [phone] [address] of , [place]. tel: [phone] Dennis [place] Supervision of Feb-2 Kassandra In Womens other high risk 1-201 Julia. Health [facility], pregnancies, 8 700 PO Box second Medical 1522, trimesterPlacent [facility], a previa Miky Girard, specified as w/o 120, [id number], hemor, second [place], [place] [id number] [place], tel:+ weeks gestation [phone] [address] of , [place]. tel: [phone] Dennis [place] Supervision of Feb-2 Kassandra In Womens Ultrasound other high risk 1-201 Julia. Health [place], pregnancies, 8 700 PO Box second Medical 1522, trimesterPlacent [facility], a previa Miky Girard, specified as w/o 120, [id number], hemor, second [place], [place] [id number] [place], tel:+ weeks gestation [phone] [address] of , [place]. tel: [phone] Dennis [place] Supervision of Deshawn-3 Kassandra In Womens other high risk 1-201 Julia. Health PA, pregnancies, 8 700 PO Box second Medical 1522, trimesterMatern [facility], care for oth or Miky Girard, susp poor fetl 120, [id number], grth, 2nd tri, [place], [place] unspPlacenta [place], tel: previa specified as w/o hemor, , [place]. second tel: [phone] weeks gestation of [facility] Encounter for Deshawn-0 Kassandra In Womens suprvsn of 4-201 Julia. Health PA, normal 8 700 PO Box , first Medical 1522, [id number] [facility], weeks gestation Miky Girard, of 120, [id number], [place], [place], tel:[phone] , [place]. tel: [phone] Dennis [place] Encounter for Deshawn-0 Kassandra In Womens Ultrasound suprvsn of 4-201 Julia. Health PA, normal 8 700 PO Box , first Medical 1522, [id number] [facility], weeks gestation , Miky BYRNE, of 120, , [place], [place], tel:[phone] , [place]. tel: [phone] [facility] Dec-1 Kassandra In Womens 8-201 Julia. Health [facility], 7 700 PO Box Medical 1522, [place], , [facility] [place], 120, , [place], [place], tel:[phone] , [place]. tel: [phone] [facility] Ot Dec-1 Kassandra In Womens noninflammatory 3-201 Julia. Health [facility], disorders of 7 700 PO Box vulva and Medical 1522, perineumPap [facility], Smear Screening, Miky Girard, CervixEncounter 120, , for suprvsn of [place], normal [place], tel: , first [id number] , [place]. weeks gestation tel: of [phone] [facility] Encntr for Nov-2 Mcgraw Referring In Womens suprvsn of 2-201 Anne. Provider: Dede CHE, normal 7 700 Giselle PO Box , unsp, Medical Nixon J, 1522, unsp trimester Center [address] [facility] [address] Manda, [facility] [place], 120, Miky 120, , [place], [place], [place], [id number]. tel:[phone] tel: , [place]. [id number] tel: [phone] Dennis [place] Other specified Nov-2 Alicea In Womens health status 0-201 Giselle. Health [facility], 7 700 PO Box Medical [address], [place] [address] Manda, Miky BYRNE, 120, , [place], [place], tel:[phone] , [place]. tel: [phone] Dennis [place] Encounter for Sep-2 Sobbing In Womens initial 8-201 Higinio. Health [facility], prescription of 7 700 PO Box contraceptive Medical 1522, [facility] for routine Drive, [place], checking of Suite , intrauterine 120, [place] contracep dev [place], tel:+ [phone], [place]. tel: [phone] [facility] Urinary tract Mar-2 Alicea In Womens infection, site 1-201 Giselle. Health PA, not 7 700 PO Box specifiedAnesthe Medical 1522, lam of skin [place] [address] [place], 120, [id number], [place], [place], tel:+ [phone] , [place]. tel: [phone] [facility] Urinary tract Mar-0 Alicea In Womens infection, site 9-201 Giselle. Health PA, not 7 700 PO Box specifiedVaginal Medical 1522, [facility] , Miky BYRNE, for routine 120, , checking of [place], intrauterine [place], tel: contracep [phone] [facility] , [place]. test, tel: result negative [phone] [facility] Encntr screen Deshawn-2 Kassandra In Womens for infections w 7-201 Julia. Health PA, sexl mode of 7 700 PO Box [facility] [place] 1522, er for insertion [facility], of intrauterine Miky Girard, contraceptive 120, [id number], devicePostpartum [place], Follow-Up, [place], tel:+ Routine [phone] [address] , [place]. tel: [phone] Dennis [place] Obstruction of Dec-2 Kassandra In Womens bile duct 0-201 Julia. Health PA, 6 700 PO Box Medical 1522, [place] [address] [place], 120, [id number], [place], [place], tel:[phone] , [place]. tel: [phone] Dennis [place] Chronic Dec-0 Kassandra In Womens maxillary 2-201 Julia. Health PA, sinusitis 6 700 PO Box Medical [address], [place] [address] [place], 120, [id number], [place], tel:[phone] , [place]. tel: [phone] [facility] Chronic Nov-2 Kassandra In Womens maxillary 2-201 Julia. Dede CHE, sinusitis 6 700 [facility] Medical 1522, [place] [address] Manda, [facility] [place], 120, [id number], [place], [place], tel:[phone] , [place]. tel: [phone] [facility] Chronic Nov-1 Kassandra Referring In Womens maxillary 6-201 Julia. Provider: Dede CHE, sinusitis 6 700 Julia [facility] Medical [facility] L, 1522, [address] Manda, [facility] [place], 120, Miky 120, [id number], [place], [place], [place], [id number]. tel:[phone] tel:[phone] , [place]. [id number] tel: [phone] Dennis [place] Oct-1 Kassandra Referring In Womens 3-201 Julia. Provider: Dede CHE, 6 700 Julia [facility] Medical [facility] L, 1522, [place] [address], [facility] [place], 120, Miky 120, [id number], [place], [place], [place], [id number]. tel:[phone] tel: , [place]. [id number] tel: [phone] [facility] Rash Sep-1 Kassandra In Womens 9-201 Julia. Dede CHE, 6 700 [facility] 1522, [place] [address] Manda, [facility] [place], 120, [id number], [place], [place], tel:+ [phone] , [place]. tel: [phone] [facility] Rash Aug-1 Kassandra In Womens 8-201 Julia. Dede CHE, 6 700 [facility] 1522, [place] [address] Manda, [facility] [place], 120, [id number], [place], tel:+ [phone] , [place]. tel: [phone] [facility] Vaginal Dec-2 Alicea Referring In Womens Discharge or 3-201 Giselle. Provider: Dede CHE, Alayna johnson, 5 700 Brigida PO Box unspecified Medical Ceci S, 1522, Center [address] Manda, [facility] [place], 120, Mkiy 120, [id number], [place], [place], [facility], [id number]. tel: [phone] tel: , [place]. [id number] tel: [phone] Dennis [place] Jan- Ceci Referring In Womens 9-201 Brigida. Provider: Dede CHE, 2 700 Pediatrics PO Box Medical [place], 1522, Center [address] Manda, [facility] [place], 120, Drive [id number], [place], [facility], [place], [place], tel: [phone] [address]. , . tel: tel: [phone] Family History Family Member Diagnosis Age At [...] [place] - Medicaid [place] [id number] [facility] Out Of State [id number] [employer] [place] [employer] - Medicaid [place] [id number] [place] Medicaid MC [id number] [employer] [place] [employer] - Medicaid MC [id number] [employer] [place] [employer] - Medicaid MC [id number] Social History Type Description Quantity Date Captured Alcohol Use Details No Caffeine Use Details Unknown Tobacco Use Status Unknown Smoking Status Never smoker Vital Signs Date / Height Weight BMI Pulse Blood Temperature Respiratory Body Head BMI Time: Rate Pressure Rate Surface Circumference percentile Area 227.90 40.3 108/2018 lbs 7 mm[Hg] 3:18 kg/m PM eter (2) Chief Complaint And Reason For Visit Unknown Chief Complaint And Reason For Visit Reason For Referral Reason For Referral Unknown Plan Of Care Date Type Action Status Goal Lifestyle education regarding completed diet Goal Lifestyle education regarding completed diet Goal Lifestyle education regarding completed diet Referral Ordered: ordered Mina Smith MD -Otolaryngology (related to Chronic maxillary sinusitis) Referral Referred To: ordered Mian Smith MD Ordered: Referrals: Otolaryngology. Mian Smith MD. Location: [place]. Consult Referral Ordered: ordered German Maurer -Dermatology (related to Rash) Referral Referred To: ordered German Maurer [address] [place], [place] Ordered: Referrals: Dermatology. German Maurer. Evaluate and treat Appointment Taylor Melo BOOKED Appointment Taylor Melo BOOKED Future Order: Lab Order Pap Smear With HPV Reflex If Ordered ASCUS ([id number]), Collected on: Future Order: Radiology Order Complete OB Ultrasound > 14 Ordered Weeks ([id number]) Future Order: Radiology Order Nuchal Translucency ([id number]) Ordered Date Type Problem Goal Intervention Status [...]
--- OUTSIDE RECORDS SUMMARY | 2017-10-12 05:41 | External Medical Summary | Continuity of Care Document ---
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 Apositive result cannot distinguish between recent andpast infection. If recent HSV infection is suspectedbut the results are negative or equivocal, the assayshould be repeated in 4-6 weeks. The performancecharacteristics of the assay have not been establishedfor pediatric populations, immunocompromised patients,or screening.Test performed at [facility] [id number] [place] [address]Yrzauvec: MATY FIGUEROA DO,MPH Panel Description: HSV 1/2 IGG,TYPE SPECIFIC AB HSV 1 IGG, <0.90 index N TYPE SPECIFIC 14:28:00 AB HSV 2 IGG, 14.30 index H Index TYPE SPECIFIC 14:28:00 Interpretation AB ----- <0.90 Negative 0.90-1.09 Equivocal >1.09 Positive This assay utilizes recombinant type-specific antigensto differentiate HSV-1 from HSV-2 infections. Apositive result cannot distinguish between recent andpast infection. If recent HSV infection is suspectedbut the results are negative or equivocal, the assayshould be repeated in 4-6 weeks. The performancecharacteristics of the assay have not been establishedfor pediatric populations, immunocompromised patients,or screening.Test performed at [facility] [id number] [place] [address]Zpwlwgho: MATY FIGUEROA DO,MPH Panel Description: HSV 1/2 AB (IGM), IFA W/RFL TO TITER HSV 1 IGM 14:28:00 POSITIVE A SCREEN HSV 2 IGM 14:28:00 POSITIVE A REFERENCE RANGE: NEGATIVE The IFA SCREEN procedure for measuring IgM antibodies to HSV 1and HSV 2 detects both type-common and type- specificHSV antibodies. Thus, IgM reactivity to both HSV 1and HSV 2 may represent crossreactive HSV antibodiesrather than exposure to both HSV 1 and HSV 2. This test was developed and its analytical performancecharacteristics have been determined by [facility] [employer]. It has not been cleared or approvedby FDA. This assay has been validated pursuant to the[employer] Med[employer]IA regulations and is used for clinical purposes.REPORT COMMENT:FASTING:NOTest performed at [facility], [address] [address]Ifnyzdxu: Sofia MADRIGAL Panel Description: HSV 1/2 AB (IGM), IFA W/RFL TO TITER HSV 1 IGM 14:28:00 POSITIVE A SCREEN HSV 2 IGM 14:28:00 POSITIVE A REFERENCE RANGE: NEGATIVE The IFA SCREEN procedure for measuring IgM antibodies to HSV 1and HSV 2 detects both type-common and type- specificHSV antibodies. Thus, IgM reactivity to both HSV 1and HSV 2 may represent crossreactive HSV antibodiesrather than exposure to both HSV 1 and HSV 2. This test was developed and its analytical performancecharacteristics have been determined by [facility]. It has not been cleared or approvedby FDA. This assay has been validated pursuant to the[employer] regulations and is used for clinical purposes.Test performed at [facility], [id number] [place] [address]Iokdzpvh: Sofia MADRIGAL Panel Description: HSV 1 IGM TITER HSV 1 IGM TITER 14:28:00 1:20 H REFERENCE RANGE: <1:20 Test performed at [facility], [id number] [place] [address]Kgvzhscq: Sofia MADRIGAL Panel Description: HSV 2 IGM TITER HSV 2 IGM TITER 14:28:00 1:20 H REFERENCE RANGE: <1:20 REPORT COMMENT:FASTING:NOTest performed at [facility], [id number] [place] [address]Qysxqcal: Sofia MADRIGAL Panel Description: CHLAMYDIA/N. GONORRHOEAE RNA, TMA CHLAMYDIA NOT DETECTED NOT DETECTED N TRACHOMATIS RNA, 14:28:00 TMA NEISSERIA NOT DETECTED NOT DETECTED N GONORRHOEAE RNA, 14:28:00 TMA [id number] SEE NOTE This test was 14:28:00 performed using the APTIMA COMBO2 Assay(HTG [employer] The analytical performance characteristics of this assay, when used to test SurePath specimens havebeen determined by [employer]. REPORT COMMENT:FASTING:UNKNO WNTest performed at [facility] [id number] [place] [address]Mewkqxvk: MATY FIGUEROA DO,MPH Advance Directives Directive Yes / No Effective Date File Name Unknown Encounters Encounter Practice Location Reason(s) Diagnoses Date Provider Care Team Description For Visit Members [facility] Mar- Kassandra In Womens 8 Julia. [facility], 7 700 PO Box Medical [address], [address] [place], 120, [id number], [place], [place], tel:+ [phone] , [place]. tel: [phone] [facility] Kassandra In Womens noninflammatory 3-201 Julia. [facility], disorders of vulva 7 700 PO Box and perineumPap Medical 1522, Smear Screening, [facility] CervixEnc[facility] Miky Girard, for suprvsn of 120, [id number], normal , [facility] first [id number] [place], tel:+[phone] weeks gestation of [phone] [address] , [place]. tel: [phone] Dennis [place] Encntr for suprvsn Nov-2 Mcgraw Referring In Womens of normal 2-201 Anne. Provider: Health [facility], , unsp, 7 700 Giselle PO Box unsp trimester Medical Alicea J, 1522, Center [address] [place] [address] Dr Manda, [facility] [place], 120, Miky 120, , [place], [place], [place], . tel:[phone] tel:+[phone] , [place]. 712023 tel: [phone] Dennis [place] Other specified Nov-2 Alicea In Womens health status 0-201 Giselle. Health [facility], 7 700 PO Box Medical [address], [address] Manda, [facility] [place], 120, , [place], [place], tel:[phone] , [place]. tel: [phone] Dennis [place] Encounter for Sep-2 Sobbing In Womens initial 8-201 Higinio. Health [facility], prescription of 7 700 PO Box contraceptive Medical 1522, pillsEncounter for Shafer Manda, routine checking Drive, [place], of intrauterine Suite , contracep dev 120, [place], [place]: [place], [address], [place]. tel: [phone] Dennis [place] Urinary tract Mar-2 Alicea In Womens infection, site 1-201 Giselle. Health PA, not 7 700 PO Box specifiedAnesthesi Medical 1522, a of skin [address] Manda, [facility] [place], 120, [id number], [place], [place], tel:[phone] , [place]. tel: [phone] Dennis [place] Urinary tract Mar-0 Alicea In Womens infection, site 9-201 Giselle. Health PA, not 7 700 PO Box specifiedVaginal Medical 1522, Discharge or Shafer Amador, LesionEncsantiago Girard, [facility], for routine 120, , checking of [place], intrauterine [place], tel: contracep [phone] devEncounter for , [place]. test, tel: result negative [phone] [facility] Encntr screen for Deshawn-2 Kassandra In Womens infections w sexl 7-201 Julia. Health PA, mode of 7 700 PO Box transmissEncuc [facility] [place] Medical 1522, for insertion of Shafer jes [address], [facility], contraceptive 120, [id number], devicePostpartum [facility] Follow-Up, Routine [place], tel:[phone] , [place]. tel: [phone] [facility] Obstruction of Dec-2 Kassandra In Womens bile duct 0-201 Julia. Health [facility], 6 700 PO Box Medical [address]22, [address] Manda, [facility] [place], 120, [id number], [facility] [place], tel:[phone] , [place]. tel: [phone] [facility] Chronic maxillary Dec-0 Kassandra In Womens sinusitis 2-201 Julia. Health [facility], 6 700 PO [facility] 1522, [address] Manda, [facility] [place], 120, [id number], [place], [place], tel:[phone] , [place]. tel: [phone] [facility] Chronic maxillary Nov-2 Kassandra In Womens sinusitis 2-201 Julia. Health [facility], 6 700 PO Box Medical [address]22, [address] Manda, [facility] [place], 120, [id number], [place], [place], tel:[phone] , [place]. tel: [phone] [facility] Chronic maxillary Nov-1 Kassandra Referring In Womens sinusitis 6-201 Julia. Provider: Dede CHE, 6 700 Julia PO Box Medical Kassandra L, 1522, [place] [address], [facility] [place], 120, Miky 120, [id number], [place], [place], [place], [id number]. tel:[phone] tel:+316 , [place]. 419[address] tel: [phone] Dennis [place] Oct-1 Kassandra Referring In Womens 3-201 Julia. Provider: Dede CHE, 6 700 Julia PO Box Medical Kassandra L, 1522, [address] Manda, [facility] [place], 120, Miky 120, [id number], [place], [place], [place], [id number]. tel:[phone] tel: , [place]. 545[address] tel: [phone] [facility] Rash Sep-1 Kassandra In Womens 9-201 Julia. Health [facility], 6 700 [facility] 1522, [address] Manda, [facility] [place], 120, [id number], [place], [place], tel: [phone] , [place]. tel: [phone] [facility] Rash Aug-1 Kassandra In Womens 8-201 Julia. Health [facility], 6 700 [facility] 1522, [address] Manda, [facility] [place], 120, [id number], [place], [place], tel: [phone] , [place]. tel: [phone] [facility] Vaginal Discharge Dec- Alicea Referring In Womens or LesionDry 3-201 Giselle. Provider: Health [facility], mouth, unspecified 5 700 Brigida [facility], 1522, [address] Manda, [facility] [place], 120, Miky 120, [id number], [place], [place], [place], [id number]. tel:[phone] tel: , [place]. 403304 tel: [phone] Dennis [place] Oct-0 Ceci Referring In Womens 9-201 Brigida. Provider: Health [facility], 2 700 Pediatrics [facility], 1522, [address] Manda, [facility] [place], 120, Drive [id number], [place], [facility], [place], [place], [place], tel: [phone]. [phone] , [place]. tel: tel: [phone] Family History Family Member Diagnosis Age At [...] [place] - Medicaid MC [id number] BCBS Out Of State [id number] [employer] [place] [employer] - Medicaid [place] [id number] [place] Medicaid [place] [id number] [employer] [place] [employer] - Medicaid MC [id number] [employer] [place] [employer] - Medicaid [place] [id number] Social History Type Description Quantity Date Captured Alcohol Use Details No Caffeine Use Details Unknown Tobacco Use Status Never smoked tobacco Smoking Status Never smoker Non-Smoking Tobacco Use : No Details Available : No Details Available Details Vital Signs Date / Height Weight BMI Pulse Blood Temperature Respiratory Body Head BMI Time: Rate Pressure Rate Surface Circumference percentile Area 211.90 37.5 132/76 -2017 lbs 3 mm[Hg] 1:12 kg/m PM eter (2) 211.90 37.5 -2017 lbs 3 1:07 kg/m PM eter (2) Chief Complaint And [...] Ordered: Referrals: Otolaryngology. Mian Smith MD. Location: [place]. Consult Referral Ordered: ordered German Maurer -Dermatology (related to Rash) Referral Referred To: ordered German Maurer [address] [place], [place] Ordered: Referrals: Dermatology. German Maurer. Evaluate and treat Appointment Taylor Melo BOOKED Appointment Taylor Melo BOOKED Future Order: Lab Order Pap Smear With HPV Reflex If ASCUS Ordered ([id number]), Collected on: Date Type Problem Goal Intervention Status Start [...]
--- OUTSIDE RECORDS SUMMARY | 2017-10-12 05:41 | External Medical Summary | Continuity of Care Document ---
:1995 Author Organization [facility] [place] Address [address] [place], [place] [id number] Phone Care Team Providers Name Role Phone Snehal Corbin MD Unavailable Unavailable Allergies, Adverse Reactions, Alerts Substance Reaction Severity Status cefuroxime Unknown Active Medications Medication Instructions Dosage Effective Status Comments Dates (start - stop) butalbital-acetam take 1 tablet by Not Available [...] Team Description For Visit Members Dennis Morales Jul- Kassandra In Womens 3-201 Julia. [facility], 8 700 [address] [place] [facility] [address], [address] [place]anda, [place], 120, [id number], [facility] [place], tel:+ [phone] , [place]. tel: [phone] Dennis Morales Jun-2 Kassandra In Womens 5-201 Julia. [facility], 8 700 [address] Medical [address], [address], [place], 120, [id number], [facility] [place], tel:[phone] , [place]. tel: [phone] Dennis [place] Jun-2 Kassandra In Womens 3-201 Julia. [facility], 8 700 PO Box Medical [address], [address], [place], 120, [id number], [facility] [place], tel:+ [phone] , [place]. tel: [phone] Dennis Morales Supervision of Mar-2 Kassandra In Womens other high risk 2-201 Julia. [facility] [place], pregnancies, 8 700 PO Box second Medical 1522, trimesterPlacent [address], [place], specified as w/o 120, [id number], hemcatherine hong, [id number] [place], tel:[phone] weeks gestation [phone] of , [place]. tel: [phone] Dennis [place] Supervision of Feb-2 Kassandra In Womens other high risk 1-201 Julia. Health [place], pregnancies, 8 700 PO Box second Medical 1522, trimesterPlacent [address], [place], specified as w/o 120, [id number], hemcatherine hong, [id number] [place], tel:[phone] weeks gestation [phone] of , [place]. tel: [phone] Dennis [place] Supervision of May- Kassandra In Womens Ultrasound other high risk 1-201 Julia. [facility] [place], pregnancies, 8 700 PO Box second Medical 1522, trimesterPlacent [facility], a previa [place] Girard, specified as w/o 120, [id number], hemor, second [place], [place] [email or web address] [place], tel: weeks gestation [phone] of , [place]. tel: [phone] Dennis [place] Supervision of Deshawn-3 Kassandra In Womens other high risk -201 Julia. Health [place], pregnancies, 8 700 PO Box second Medical 1522, trimesterMatern [facility], care for oth or [place] Girard, susp poor fetl 120, [id number], grth, 2nd tri, [place], [place] unspPlacenta [place], tel: previa specified as w/o hemor, , [place]. second tel: [id number] [phone] weeks gestation of Associates Andrew Encounter for Deshawn-0 Kassandra In Womens suprvsn of - Julia. Health [place], normal 8 700 PO Box , first Medical 1522, [email or web address] [facility], weeks gestation [place] Girard, of 120, , [place], [place], tel:[phone] , [place]. tel: [phone] Dennis Morales Encounter for Deshawn-0 Kassandra In Womens Ultrasound suprvsn of 4-201 Julia. Health [place], normal 8 700 PO Box , first Medical 1522, [email or web address] [facility], weeks gestation [place] Girard, of 120, , [place], [place], tel:[phone] , [place]. tel: [phone] Dennis [place] Dec-1 Kassandra In Womens 8-201 Julia. Health [place], 7 700 PO Box Medical [address]22, [facility], [place] Girard, 120, [id number], [place], [place], tel:[phone] , [place]. tel: [phone] Dennis [place] Oth Dec-1 Kassandra In Womens noninflammatory 3-201 Julia. Health [place], disorders of 7 700 PO Box vulva and Medical 1522, perineumPap [facility], Smear Screening, , [place] BYRNE, CervixEncounter 120, [id number], for suprvsn of [place], [place] normal [place], tel: , first [id number] , [place]. weeks gestation tel: of [phone] Dennis [place] Encntr for Nov-2 Mcgraw Referring In Womens suprvsn of 2-201 Anne. Provider: Health [facility], normal 7 700 Giselle PO Box , unsp, Medical Nixon J, 1522, unsp trimester Center [address] [facility] [address] Manda, [facility] [place], 120, [place] 120, , Andrew [place], [place], [place], [id number]. tel: tel: , [place]. [id number] tel: [phone] Dennis Morales Other specified Nov-2 Alicea In Womens health status 0-201 Giselle. Health [facility], 7 700 PO Box Medical [address], [address] Manda, [place] BYRNE, 120, [id number], [place], [place], tel:[phone] , [place]. tel: [phone] Dennis [place] Encounter for Sep-2 Sobbing In Womens initial 8-201 Higinio. Health [place], prescription of 7 700 PO Box contraceptive Medical 1522, [facility] for routine Drive, [place], checking of Suite , intrauterine 120, [place] contracep [place], [place]: [place], [phone], [place]. tel: [phone] Dennis [place] Urinary tract Mar-2 Alicea In Womens infection, site 1-201 Giselle. Health [place], not 7 700 PO Box specifiedAnesthe Medical 1522, lam of skin [address] Manda, [place], 120, [id number], [place], [place], tel:[phone] , [place]. tel:[phone] [facility] Urinary tract Mar-0 Alicea In Womens infection, site 9-201 Giselle. Health [place], not 7 700 PO Box specifiedVaginal Medical 1522, Discharge or [facility], [facility] , [place] BYRNE, for routine 120, , checking of [place], intrauterine [place], tel: contracep [phone] [facility] , [place]. test, tel: result negative [phone] [facility] Encntr screen Deshawn-2 Kassandra In Womens for infections w 7-201 Julia. Health [facility], sexl mode of 7 700 PO Box transmissEncount Medical 1522, er for insertion [address] [place], of intrauterine [place] Girard, contraceptive 120, , devicePostpartum [place], Follow-Up, [place], tel: Routine , [place]. tel: [phone] [facility] Obstruction of Dec-2 Kassandra In Womens bile duct 0-201 Julia. Health [facility], 6 700 PO Box Medical [address], [address] [place], 120, , [place], [place], tel:+ [phone] , [place]. tel: [phone] [facility] Chronic Dec-0 Kassandra In Womens maxillary 2-201 Julia. Dede CHE, sinusitis 6 700 PO Box Medical [address], [address] [place], 120, , [place], [place], tel:[phone] , [place]. tel: [phone] [facility] Chronic Nov-2 Kassandra In Womens maxillary 2-201 Julia. Health [facility], sinusitis 6 700 PO Box Medical [address], [address] [place], 120, [id number], [place], [place], tel:[phone] , [place]. tel: [phone] [facility] Chronic Nov-1 Kassandra Referring In Womens maxillary 6-201 Julia. Provider: Health [facility], sinusitis 6 700 Julia PO Box Medical Kassandra John [address]22, [place] [id number] Manda, [facility] [place], 120, [place] 120, [id number], Andrew [place], [place], [place], [id number]. tel:[phone] tel:+ , [place]. [id number] tel: [phone] [facility] Oct-1 Kassandra Referring In Womens 3-201 Julia. Provider: Dede CHE, 6 700 Julia PO Box Medical Kassandra L, 1522, [address] Manda, [facility] [place], 120, [place] 120, [id number], Andrew [place], [place], [place], [id number]. tel:[phone] tel: , [place]. 860209 tel: [phone] [facility] Gonsalez Sep-1 Kassandra In Womens 9-201 Julia. Dede CHE, 6 700 [facility] 15[address], [address] Manda, [facility] [place], 120, [id number], [place], [place], tel:[phone] , [place]. tel: [phone] [facility] Gonsalez Aug-1 Kassandra In Womens 8-201 Julia. Dede CHE, 6 700 [facility] [address], [address] Manda, [facility] [place], 120, [id number], [place], [place], tel:[phone] , [place]. tel: [phone] Dennis Rodriguez Dec-2 Alicea Referring In Womens Discharge or 3-201 Giselle. Provider: Dede CHE, Alayna johnson, 5 700 Brigida PO Box unspecified Medical [place] S, 1522, [place] [address], [facility] [place], 120, [place] 120, [id number], Andrew [place], [place], [place], [id number]. tel:[phone] tel: , [place]. [phone] tel: [phone] Dennis [place] Oct-0 Holdeman Referring In Womens 9-201 Rbigida. Provider: Dede CHE, 2 700 Pediatrics PO [place] [facility], 1522, [address] Manda, [facility] [place], 120, [id number], [place], [facility], [place] CATY, CATY [place], tel: [phone]. [phone] , [place]. tel: tel: [phone] Family History Family Member Diagnosis Age At [...] [employer] [place] - Medicaid [place] [id number] BCBS Out Of State [id number] [employer] [place] [employer] - Medicaid MC [id number] [employer] [place] - Medicaid [place] [id number] [employer] [place] [employer] - Medicaid [place] [id number] [employer] [place] [employer] - Medicaid [place] [id number] Social History Type Description Quantity Date Captured Alcohol Use Details No Caffeine Use Details Unknown Tobacco Use Status Unknown Smoking Status Never smoker Vital Signs Date / Height Weight BMI Pulse Blood Temperature Respiratory Body Head BMI Time: Rate Pressure Rate Surface Circumference percentile Area 40.3 7 5:14 kg/m PM eter (2) Chief Complaint And [...] Ordered: Referrals: Otolaryngology. Mian Smith MD. Location: [place]. Consult Referral Ordered: ordered German Maurer -Dermatology (related to Rash) Referral Referred To: ordered German Maurer [address] [place], [place] Ordered: Referrals: Dermatology. German Maurer. Evaluate and treat Appointment Taylor Melo BOOKED Appointment Taylor Melo BOOKED Future Order: Lab Order Pap Smear With HPV Reflex If Ordered ASCUS ([id number]), Collected on: Future Order: Radiology Order Complete OB Ultrasound > 14 Ordered Weeks ([id number]) Future Order: Radiology Order Nuchal Translucency ([id number]) Ordered Date Type Problem Goal Intervention Status [...]
[2017-10-12] MEDS ORDERED: NOZIN NASAL SWAB NAS ONE (05:46)
[2017-10-12] MEDS ORDERED: FAMOTIDINE PB 20 MG/50 ML BAG IV ONE (05:46)
[2017-10-12] MEDS ORDERED: CITRIC ACID/SODIUM CITRATE 30ml PO ONE (05:46)
[2017-10-12] MEDS: LR 1,000 ML IV SCH ×2 (06:00→07:48)
[2017-10-12 06:22] VITALS: BMI 40.7
[2017-10-12] MEDS ORDERED: CLINDAMYCIN PB 900 MG/50 ML BAG IV SCH (06:53)
[2017-10-12] MEDS ORDERED: D5W 500 ML IV SCH (07:00)
[2017-10-12] MEDS ORDERED: GENTAMICIN 120 MG in NS 100 ML IV SCH (07:00)
[2017-10-12] MEDS ORDERED: NALOXONE 2 MG/2 ML INJECTION PFS IVP PRN (07:04)
[2017-10-12] MEDS ORDERED: ONDANSETRON 4 MG/2 ML INJECTION IVP PRN ×2 (07:04→13:09)
[2017-10-12] MEDS ORDERED: METOCLOPRAMIDE 10mg/2ml INJECTION IVP PRN ×3 (07:04→10:12)
[2017-10-12] MEDS ORDERED: DiphenhydrAMINE 50 MG/ML INJECTION IVP PRN (07:04)
--- NOTE | 2017-10-12 07:04 | Anesthesia Preoperative Report ---
Anesthesia Preoperative Record - Date and Time Date: 10/12/17 Preoperative Diagnosis: Primary C Section Proposed Procedure: csection NPO Since Date: 10/11/17 NPO Since Time: 23:00 Allergies/Adverse Reactions: Allergies Allergy/AdvReac Type Severity Reaction Status Date / Time dexamethasone Allergy Unknown Verified 10/12/17 06:26 cefuroxime AdvReac Unknown Verified 10/12/17 06:26 - Vital Signs Vital Signs: Temperature 98.4 F 10/12/17 06:12 Pulse Rate 89 10/12/17 06:12 Respiratory Rate 16 10/12/17 06:12 Blood Pressure 125/70 10/12/17 06:12 Pulse Oximetry 98 10/12/17 06:12 Height and Weight: Height 1.6 m Weight 104.326 kg Body Mass Index 40.7 - Medications Inpatient Medications: Current Medications Lactated Ringer's (Lactated Ringers) 1,000 mls @ 150 mls/hr IV .Q6H40M [facility] Last Admin: 10/12/17 06:00 Dose: 150 mls/hr Clindamycin Phosphate (Cleocin 900 Mg Premix) 900 mg in 50 mls @ 50 mls/hr IV O ELENA Gentamicin Sulfate 120 mg/ (Sodium Chloride) 103 mls @ 200 mls/hr IV O ELENA Dextrose (Dextrose 5% In Water) 500 mls @ 150 mls/hr IV .Q3H20M [facility] Home Medications: Home Medications Medication Instructions Recorded Confirmed Type Acyclovir 1 tab PO TID 10/02/17 10/02/17 History Is Patient on Beta Giovani?: No - Medical History Respiratory: Reports: Asthma (inhaler available, mild ), Bronchitis (had during this pg.) Gastrointestional: Reports: Morbid Obesity Neuro/Musculoskeletal: Reports: Depression (takes Lexapro) Renal/Endocrine: Reports: Other (gest diabetes with this pg.) Other History: Reports: Now - Surgical History Reproductive Surgery/Treatment: DENIES: Section Anesthesia Reactions: None Hx Family Anesthesia Reaction: No History of Motion Sickness: No - Social History Smoking Status: Never smoker Substance Use Type: does not use Alcohol Intake: current Alcohol Intake Frequency: holidays/special occasions only - Pertinent Findings Laboratory: CBC and BMP 10/12/17 06:05 - Physical Exam Respiratory Exam: Present: lungs clear, bilateral breath sounds equal Cardiovascular Exam: Present: regular rate and rhythm, no murmur - Airway Assessment Mallampati Score: I TMD: 3 Fingerbreadths Neck Extension: good Overall Assessment: no airway concerns - ASA ASA Score: 2 - Plan Regional/Trunk Block: Spinal - Discussion Discussion: Discussed risks/options/alternatives of anesthesia and questions answered. Patient consents. Nursing pain assessment noted. Attestation Statement: Prior to the delivery of any anesthetic medication, I examined the patient, developed the plan, obtained the patient's consent and discussed the risk and benefits of the procedure with the patient/guardian. - Additional Information Seen by Anesthesia: Yes
[2017-10-12] MEDS ORDERED: LIDOCAINE 2% (100mg/5mL) 5ml PF SDV ONE ×2 (07:16→07:41)
[2017-10-12] MEDS ORDERED: BUPIVACAINE 0.75%/DEXTROSE 8.5% SPINAL 2 ML AMPULE IJ ONE (07:16)
[2017-10-12] MEDS ORDERED: ONDANSETRON 4 MG/2 ML INJECTION ONE (07:48)
[2017-10-12] MEDS: OXYTOCIN BOLUS BAG 30 UNIT/500 ML ML IV SCH ×2 (07:58→08:50)
[2017-10-12] MEDS: D5LR 1,000 ML IV SCH ×2 (08:50→20:28)
[2017-10-12] MEDS ORDERED: DiphenhydrAMINE 25 MG CAPSULE PO PRN (09:10)
[2017-10-12] MEDS ORDERED: CALCIUM CARBONATE Chewable 500mg TABLET PO PRN (09:10)
[2017-10-12] MEDS ORDERED: HYDROCORTISONE 2.5% CREAM 30gm RECTALLY PRN (09:10)
[2017-10-12] MEDS ORDERED: OXYTOCIN DRIP 30 UNIT/500 ML ML IV SCH (09:10)
[2017-10-12] MEDS ORDERED: ACETAMINOPHEN 500 MG TABLET PO PRN (09:10)
[2017-10-12] MEDS ORDERED: SIMETHICONE 80 MG CHEWABLE TABLET PO PRN (09:10)
[2017-10-12] MEDS ORDERED: RHOPHYLAC - PHARMACY CONSULT MC ONE ×2 (09:10)
--- NOTE | 2017-10-12 09:34 | Pharmacy Consult ---
Pharmacy Consult-Rhophylac - Laboratory Information 10/12/17 10/12/17 06:05 09:10 Blood Type O Negative RhIG Candidate? Not a candidate Rh FACTOR CONSULT: Mother Blood Type = O negative Child Blood Type = O negative Mom is NOT a candidate. Thank you.
--- NOTE | 2017-10-12 13:23 | Operative Note ---
DATE OF OPERATION 10/12/2017 PREOPERATIVE DIAGNOSIS Term . Patient requests delivery. POSTOPERATIVE DIAGNOSIS Term . Patient requests delivery. Delivered. PROCEDURES Primary low transverse section. SURGEON Julia Cannon MD FOIL SPOOLER Papi Ritchie, Senior Search Marketing Analyst ANESTHESIA Combo spinal epidural GENERAL SCIENCE TEACHER [place] CRNA EBL 700 mL DESCRIPTION OF PROCEDURE Ms. Melo was brought to the OR and given regional analgesia to good effect. She was then placed on the OR table in the supine position with left lateral displacement. A Smith catheter was placed to dependent drain. The abdomen was prepped and draped in the usual sterile fashion. A Pfannenstiel skin incision was made with a sharp knife. This was carried down to fascia. Fascia was incised transversely then tented up. This was bluntly and sharply dissected free of rectus muscles. Rectus muscles were bluntly divided. The peritoneum was tented up and entered sharply. This was extended vertically and the bladder blade placed. The vesicouterine fold of peritoneum was tented up and incised transversely, then a bladder flap bluntly created. The bladder blade was reinserted to protect the bladder. A low transverse uterine incision was made with a sharp knife. There was copious clear amniotic fluid. The baby was fairly low in the pelvis and was delivered with some difficulty. We applied the vertex blade and elevated the head without any further difficulty. There was a loose nuchal cord x1 that was reduced. Baby was bulb suctioned on the abdomen and then delivered in total. Baby was then further bulb suctioned. Cord was doubly clamped and cut and baby was given to the Pediatric team for care. This is a liveborn male with Apgars of 8/9/9. He weighed 8 pounds, 13.8 ounces. The placenta was then manually removed, intact. It had a normal configuration and a normal-appearing three-vessel cord. The uterus was exteriorized and we swept the cavity clear of membranes. We then reapproximated the myometrial incision with a running locking 0 Monocryl. We inspected very carefully for hemostasis. There was an area near the right edge that continued to have small bleeding. This was easily secured with a free tie of 2-0 chromic. Fortunately the incision did not have any extensions. Uterus, tubes and ovaries were noted to be grossly normal. We removed blood clots from the abdomen and returned the uterus to the abdominal cavity. We reinspected our myometrial incision. It was hemostatic as was the remainder of the case. We reapproximated peritoneum with running nonlocking 2-0 Vicryl then closed the fascia with a running nonlocking 0 Vicryl. Skin edges were reapproximated with a subcuticular style 3-0 undyed Vicryl. The wound was dressed with a mesh dressing and Dermabond. The patient was then transferred to recovery in stable condition. Counts were correct postoperatively x2 and the urine remained clear and free-flowing throughout the procedure. MTDD
[2017-10-12] MEDS: SIMETHICONE 80 MG CHEWABLE TABLET PO SCH ×3 (13:55→20:56)
[2017-10-12] MEDS: DOCUSATE CALCIUM 240 MG CAPSULE PO SCH (13:55)
[2017-10-12] MEDS: IBUPROFEN 800 MG TABLET PO SCH ×3 (13:55→20:25)
--- NOTE | 2017-10-12 19:03 | Anesthesia Postoperative Note ---
- Date and Time Date: 10/12/17 Time: 19:02 - Status Patient Participated in Evaluation: Patient Participated in Person Vital Signs: Temperature 98.0 F 10/12/17 16:15 Pulse Rate 64 10/12/17 16:15 Respiratory Rate 20 10/12/17 16:15 Blood Pressure 118/49 10/12/17 16:15 Pulse Oximetry 100 10/12/17 16:15 Respiratory Function: Airway Patent Cardiovascular Function: Regular Pulse Mental Status: Alert and Oriented Pain Intensity: 2 Hydration: Taking PO Fluids Complications During Recover: None Apparent - Follow-Up Instructions Instructions: Per Surgeon
[2017-10-13] MEDS: IBUPROFEN 800 MG TABLET PO SCH ×4 (00:31→20:17)
[2017-10-13] MEDS: HYDROCODONE/APAP 5mg/325mg TABLET PO PRN ×3 (04:38→20:18)
--- NOTE | 2017-10-13 08:24 | OB/GYN Progress Note ---
OB-PP Progress Note - General PPD1 Maternal Group B Strep: Negative Maternal Rh: negative Maternal Rubella Status: Immune - Subjective Date: 10/13/17 Lochia: Minimal Pain: controlled Nausea or Vomiting Present: No - Objective Vital Signs: Last Vital Signs Temp 98.9 F 10/13/17 04:00 Pulse 72 10/13/17 04:00 Resp 18 10/13/17 04:00 BP 123/53 10/13/17 04:00 Pulse Ox 98 10/13/17 04:00 Abdomen: fundus firm, non-tender Incision: normal, dry, intact Extremities: non-tender Laboratory: Laboratory Results - last 24 hr 10/12/17 10/12/17 10/12/17 06:05 09:10 15:45 WBC 19.1 H D RBC 4.81 Hgb 14.1 Hct 40.9 MCV 85.0 MCH 29.3 MCHC 34.5 RDW Std Deviation 39.6 Plt Count 198 MPV 11.5 Antibody Identification Immune D RhIG Candidate? Not a candidate - Assessment Assessment: SP, Primary C/S - Plan Plan: routine care Expected date of discharge: 10/14/17
[2017-10-13] MEDS: DOCUSATE CALCIUM 240 MG CAPSULE PO SCH (10:54)
[2017-10-13] MEDS: SIMETHICONE 80 MG CHEWABLE TABLET PO SCH ×4 (10:54→20:19)
[2017-10-14] MEDS: HYDROCODONE/APAP 5mg/325mg TABLET PO PRN ×3 (00:39→12:18)
[2017-10-14] MEDS: IBUPROFEN 800 MG TABLET PO SCH (06:38)
[2017-10-14 07:50] VITALS: RESP 18
--- NOTE | 2017-10-14 08:39 | OB/GYN Progress Note ---
OB-PP Progress Note - General PPD2 Maternal Group B Strep: Negative Maternal Rh: negative Baby Rh: negative Maternal Rubella Status: Immune - Subjective Date: 10/14/17 Lochia: Minimal Pain: controlled Voiding: voiding - Objective Vital Signs: Last Vital Signs Temp 98.0 F 10/14/17 06:20 Pulse 80 10/14/17 06:20 Resp 18 10/14/17 06:20 BP 127/60 10/14/17 06:20 Pulse Ox 99 10/14/17 06:20 General: alert and oriented Abdomen: fundus firm, non-tender Incision: clean, no erythema, dry Extremities: non-tender - Assessment Assessment: Primary C/S, Other (GDM- diet controlled) - Plan Plan: routine care, discharge home, continue PNV Check a random sugar. I explained that 1/2 of all women with GDM will develop regular DM, so she needs to continue the DM diet.
[2017-10-14 11:32] VITALS: BP 130/66; PULSE 95; TEMP 99.1; O2SAT 95
[2017-10-14] MEDS: SIMETHICONE 80 MG CHEWABLE TABLET PO SCH (12:16)
[2017-10-14] MEDS: DOCUSATE CALCIUM 240 MG CAPSULE PO SCH (12:16)
== END 2017-10-14 12:58 | disposition home or self-care (01) | DRG 766 ==
LOC: MC 05:32
PROVIDERS: ADMIT Obstetrics & Gynecology; ATTEND Obstetrics & Gynecology